=== PATIENT | female | born 1955 | race Caucasian/White ===

== ENCOUNTER 2018-07-21 09:47 | Outpatient (CLI) | payer MEDICARE, MEDICAID, SELFPAY ==
[2018-07-21 14:50] LABS: HCT 45.1 % (36.0-46.0); HGB 14.9 g/dL (12.0-15.5); Mean Corpuscular Hemoglobin 30.9 pg (27.0-33.0); Mean Corpuscular Volume 93.6 fL (80-95); Mean Platelet Volume 9.7 fL (8.0-11.0); Platelet Count 246 x1000/uL (130-400); RBC 4.82 m/cumm (4.00-5.20); RBC Distribution Width 13.9 % (11.7-14.6)
[2018-07-21 15:36] LABS: ALT 49 U/L (12-78); AST 46 U/L (15-37); Albumin 3.4 g/dL (3.4-5.0); Alkaline Phosphatase 106 U/L (46-116); Anion Gap 11.3 mmol/L (3-11); BUN 8 mg/dL (7-18); Bilirubin, Total 0.3 mg/dL (0.2-1.0); CO2 24.7 mmol/L (21.0-32.0); CREATININE 0.97 mg/dL (0.55-1.02); Calcium 9.2 mg/dL (8.5-10.1); Chloride 105 mmol/L (98-107); Estimated GFR 58.38 (mL/min/1.73m2); Glucose 116 mg/dL (70-100); Sodium 141 mmol/L (136-145)
[2018-07-21 17:12] LABS: Vitamin D 25 Total 55.3 ng/ml (30-100)
== END 2018-07-21 10:07 ==
PROVIDERS: PCP Family Medicine; Visit Provider Family Medicine
DX: R53.83 Other fatigue (principal); G62.0 Drug-induced polyneuropathy; R94.5 Abnormal results of liver function studies; T45.1X5A Adverse effect of antineoplastic and immunosuppressive drugs, initial encounter; E55.9 Vitamin D deficiency, unspecified
CPT/HCPCS: 80053; 82306; 85027

== ENCOUNTER 2018-07-21 13:48 | Outpatient (REF) | payer MEDICARE, MEDICAID, SELFPAY ==
--- NOTE | 2018-07-21 13:40 | PAPFT_PTH ---
PATIENT: Marti Daniel LOC: [facility] U#:[id number] AGE/SX: 62/F ROOM: RE07/21/[address]: Waleska Stuart MD : 1955 BED: DIS: 07/21/2018 SPEC #: [id number] RECD: 07/21/18 17:41 STATUS: CASEY REQ #: [id number] ANNA MARIE: 07/21/18 13:[address]: Waleska Stuart DEPT: [facility] Cytology RECD BY: Armida Bradford ENTERED: 07/21/18 17:42 SP TYPE: PAPFT OTHR DR: Betsy Hurtado MD, DC Tissues: 1 - CX/ENDOCX FOR PAP SMEARS Procedures: PAP THIN PREP/UVM Screening HPV DNA PROBE Comments: [id number]
== END 2018-07-21 14:08 ==
LOC: LBN 13:48
PROVIDERS: PCP Family Medicine; Visit Provider Obstetrics & Gynecology
DX: Z12.4 Encounter for screening for malignant neoplasm of cervix (principal); Z11.51 Encounter for screening for human papillomavirus (HPV)
CPT/HCPCS: 88142; 87624

== ENCOUNTER 2018-08-19 01:50 | Outpatient (CLI) | payer MEDICARE, MEDICAID, SELFPAY ==
[2018-08-19 10:34] LABS: Abs Immature Grans 0.01 k/cumm (0.0-0.09); Absolute Basophil Count 0.06 k/cumm (0.0-0.2); Absolute Eosinophil Count 0.23 k/cumm (0.0-0.7); Absolute Lymphocyte Count 2.48 k/cumm (1.2-3.4); Absolute Monocyte Count 0.45 k/cumm (0.11-0.7); Basophils % 0.6; Eosinophils % 2.3; HCT 45.1 % (36.0-46.0); HGB 15.2 g/dL (12.0-15.5); Immature Grans % 0.1; Lymphocytes % 24.7; Mean Corp. HGB Concentration 33.7 g/dL (32.0-36.0); Mean Corpuscular Hemoglobin 31.7 pg (27.0-33.0); Mean Corpuscular Volume 94.2 fL (80-95); Mean Platelet Volume 9.3 fL (8.0-11.0); Monocytes % 4.5; Neutrophils % 67.8; Platelet Count 228 x1000/uL (130-400); RBC 4.79 m/cumm (4.00-5.20); RBC Distribution Width 13.6 % (11.7-14.6); White Blood Cell Count 10.03 k/cumm (4.4-10.8)
[2018-08-19 10:45] LABS: ALT 43 U/L (12-78); AST 42 U/L (15-37); Albumin 3.1 g/dL (3.4-5.0); Alkaline Phosphatase 99 U/L (46-116); Anion Gap 12.3 mmol/L (3-11); BUN 11 mg/dL (7-18); Bilirubin, Total 0.3 mg/dL (0.2-1.0); CO2 23.7 mmol/L (21.0-32.0); CREATININE 1.11 mg/dL (0.55-1.02); Calcium 8.7 mg/dL (8.5-10.1); Chloride 103 mmol/L (98-107); Estimated GFR 49.97 (mL/min/1.73m2); Glucose 212 mg/dL (70-100); Potassium 3.5 mmol/L (3.5-5.1); Sodium 139 mmol/L (136-145); Total Protein 7.3 g/dL (6.4-8.2)
== END 2018-08-19 02:10 ==
PROVIDERS: PCP Family Medicine; Visit Provider Nurse Practitioner Family
DX: C50.919 Malignant neoplasm of unspecified site of unspecified female breast (principal); Z17.0 Estrogen receptor positive status [ER+]
CPT/HCPCS: 36415; 80053; 85025

== ENCOUNTER 2018-10-08 00:42 | Outpatient (CLI) | payer MEDICARE, MEDICAID, SELFPAY ==
--- NOTE | 2018-10-08 14:57 | DI.MAMMO_ITS ---
SYMPTOMS/DIAGNOSIS: H/O BREAST CA, C50.012, Z17.0, F/U S/P TREATMENT, R92.9 MAMMOGRAMS: Mammograms were interpreted according to the usual protocol including computer analysis with CAD system, tomosynthesis and C view imaging. Comparison is with the prior examinations. No suspicious masses or microcalcifications are seen. The patient is status post left lumpectomy and right breast biopsy. The skin and axillae appear stable. IMPRESSION: No evidence for malignancy. Yearly mammography is recommended. Category 2. Breast density B. The findings were discussed with the patient on the date of the examination. MQSA ASSESSMENT OF FINDINGS: Negative with benign findings. Category 2. Patient will receive a letter notifying them of these results. BI-RADS category B. There are scattered areas of fibroglandular density.
== END 2018-10-08 01:02 ==
PROVIDERS: PCP Family Medicine; Visit Provider Nurse Practitioner Family
DX: C50.012 Malignant neoplasm of nipple and areola, left female breast (principal); Z17.0 Estrogen receptor positive status [ER+]; Z98.890 Other specified postprocedural states
CPT/HCPCS: 77063; 77067

== ENCOUNTER 2019-08-13 03:10 | Outpatient (CLI) | payer MEDICARE, MEDICAID, SELFPAY ==
[2019-08-13 11:42] LABS: Abs Immature Grans 0.04 k/cumm (0.0-0.09); Absolute Eosinophil Count 0.28 k/cumm (0.0-0.7); Absolute Lymphocyte Count 2.93 k/cumm (1.2-3.4); Absolute Monocyte Count 1.11 k/cumm (0.11-0.7); Absolute Neutrophil Count 7.65 k/cumm (1.2-6.7); Basophils % 0.8; Eosinophils % 2.3; HCT 47.1 % (36.0-46.0); HGB 15.5 g/dL (12.0-15.5); Immature Grans % 0.3 %; Lymphocytes % 24.2; Mean Corp. HGB Concentration 32.9 g/dL (32.0-36.0); Mean Corpuscular Hemoglobin 30.7 pg (27.0-33.0); Mean Corpuscular Volume 93.3 fL (80-95); Mean Platelet Volume 9.7 fL (8.0-11.0); Monocytes % 9.2; Neutrophils % 63.2; Platelet Count 328 x1000/uL (130-400); RBC 5.05 m/cumm (4.00-5.20); White Blood Cell Count 12.11 k/cumm (4.4-10.8)
[2019-08-13 11:54] LABS: ALT 37 U/L (14-59); AST 28 U/L (15-37); Albumin 3.7 g/dL (3.4-5.0); Alkaline Phosphatase 100 U/L (46-116); Anion Gap 11.9 mmol/L (3-11); BUN 12 mg/dL (7-18); Bilirubin, Total 0.3 mg/dL (0.2-1.0); CO2 26.1 mmol/L (21.0-32.0); CREATININE 0.95 mg/dL (0.55-1.02); Calcium 9.3 mg/dL (8.5-10.1); Chloride 103 mmol/L (98-107); Estimated GFR 59.61 (mL/min/1.73m2); Glucose 132 mg/dL (74-106); Potassium 4.1 mmol/L (3.5-5.1); Sodium 141 mmol/L (136-145); Total Protein 7.1 g/dL (6.4-8.2)
== END 2019-08-13 03:30 ==
PROVIDERS: Nurse Practitioner Family; PCP Family Medicine; Visit Provider Internal Medicine
DX: C50.012 Malignant neoplasm of nipple and areola, left female breast (principal); Z17.0 Estrogen receptor positive status [ER+]
CPT/HCPCS: 36415; 80053; 85025

== ENCOUNTER 2019-10-11 00:18 | Outpatient (CLI) | payer MEDICARE, MEDICAID, SELFPAY ==
--- NOTE | 2019-10-11 | DI.MAMMO_ITS ---
EXAM: MG MAMMO SCREENING 60 MIN DUR CLINICAL HISTORY: PERSONAL H/O BREAST CA, C50, Z17.0, S/P TREATMENT, ANNUAL FOLLOW PU TECHNIQUE: Bilateral full field digital CC and MLO mammographic images were obtained with 3D tomosyn thesis and utilizing computer aided detection (CAD). COMPARISON: Available for comparison. FINDINGS: Masses/Architectural Distortion: None seen. Status post left lumpectomy. Microcalcifications: No suspicious pleomorphic-type are seen. Skin Thickening/Nipple Retraction: Status post left lumpectomy. IMPRESSION: 1. No significant interval change with no specific features of malignancy noted. 2. Unless there is more urgent need, screening mammography is recommended, as per [place] [employer] guidelines. BI-RADS Cat 2 - Benign Findings Breast Density - Category B - Scattered areas of fibroglandular density The findings were discussed with the patient on the date of the examination. A negative radiographic report should not delay biopsy if a dominant or clinically suspicious mass is present. Up to ten percent of cancers are not identified on mammography. A negative report may reinforce clinical impression. Adenosis and dense breasts may obscure an underlying neoplasm. False positive reports average 6 to 10%. Patient will receive a letter notifying them of these results.
== END 2019-10-11 00:38 ==
PROVIDERS: PCP Family Medicine; Visit Provider Nurse Practitioner Family
DX: Z85.3 Personal history of malignant neoplasm of breast (principal); Z17.0 Estrogen receptor positive status [ER+]; Z12.31 Encounter for screening mammogram for malignant neoplasm of breast; Z98.890 Other specified postprocedural states
CPT/HCPCS: 77063; 77067

== ENCOUNTER 2020-10-16 00:42 | Outpatient (CLI) | payer MEDICARE, MEDICAID, SELFPAY ==
--- NOTE | 2020-10-16 07:45 | DI.MAMMO_ITS ---
EXAM: MG MAMMO SCREENING 60 MIN DUR CLINICAL HISTORY: breast cancer screening,personal h/o breast ca,z85.3. TECHNIQUE: Bilateral full field digital CC and MLO mammographic images were obtained with 3D tomosyn thesis and utilizing computer aided detection (CAD). COMPARISON: Prior mammograms dating back to 2010, the most recent being August 2017. This patient facet previous left lumpectomy for malignancy and has undergone biopsy of the right breast, partly ne gative. Her sister was diagnosed with breast cancer, postmenopausal. FINDINGS: Left breast lumpectomy site remains stable. No new left breast findings Area around the biopsy marker clip in the right breast remains unchanged with small nodular density a t this level again noted, previously biopsied. On 3D imaging there is a slightly more laterally loca jannette nodular density also noted in the right breast located 4-5 centimetres in from the nipple measuri ng 10 by 8 millimeters. This is unchanged from prior studies and therefore benign. There are no mal ignant-appearing microcalcification groups in this region or elsewhere in either breast. There is no significant architectural distortion nor skin thickening-retraction. IMPRESSION: Stable benign findings. No radiographic evidence of malignancy. Stable appearance of the left breast lumpectomy site. BI-RADS Category 2 - Benign Findings Breast Density - Category B - Scattered areas of fibroglandular density Breast density Category C or D implies that the patient has dense breast tissue. Dense breast tissue can make it harder to find cancer on a mammogram. Dense breast tissue is also associated with an incr eased risk of breast cancer. This information about the result of the mammogram report was provided to the patient to raise their awareness. Use this report when you speak with the patient about their risks for breast cancer, which includes their family history. At that time, you may recommend additional screening tests (Ultrasoun d or MRI) as these tests may add significant information. A negative radiographic report should not delay biopsy if a dominant or clinically suspicious mass is present. Up to ten percent of cancers are not identified on mammography. A negative report may reinforce clinical impression. Adenosis and dense breasts may obscure an underlying neoplasm. False positive reports average 6 to 10%. Patient will receive a letter notifying them of these results.
== END 2020-10-16 01:02 ==
PROVIDERS: PCP Family Medicine; Visit Provider Family Medicine
DX: Z12.31 Encounter for screening mammogram for malignant neoplasm of breast (principal); Z85.3 Personal history of malignant neoplasm of breast
CPT/HCPCS: 77063; 77067

== ENCOUNTER 2021-05-14 13:15 | Outpatient (REF) | payer MEDICARE, MEDICAID, SELFPAY ==
--- NOTE | 2021-05-14 11:15 | PAPFT_PTH ---
PATIENT: Marti Daniel LOC: [facility] U#:[id number] AGE/SX: 65/F ROOM: RE05/14/[address]: Betsy Hurtado MD, DC : 1955 BED: DIS: 05/14/2021 SPEC #: [id number] RECD: 05/14/21 18:20 STATUS: CASEY REQ #: [id number] ANNA MARIE: 05/14/21 11:[address]: Betsy Hurtado DEPT: [facility] Cytology RECD BY: Armida Bradford Tissues: 1 - CX/ENDOCX FOR PAP SMEARS Procedures: PAP THIN PREP/UVM Screening HPV DNA PROBE Comments: [id number]
== END 2021-05-14 13:16 | disposition home or self-care (01) ==
LOC: LBN 13:15
PROVIDERS: PCP Family Medicine; Visit Provider Family Medicine
DX: Z12.4 Encounter for screening for malignant neoplasm of cervix (principal); Z11.51 Encounter for screening for human papillomavirus (HPV); Z01.419 Encounter for gynecological examination (general) (routine) without abnormal findings
CPT/HCPCS: 88142; 87624

== ENCOUNTER 2021-07-08 03:49 | Observation (INO) | payer MEDICARE, MEDICAID, SELFPAY ==
[2021-07-08] VITALS (9 sets, daily range): BP systolic 95–131; BP diastolic 56–76; PULSE 96–123; RESP 15–18; TEMP 37–38.7; O2SAT 91–95
--- NOTE | 2021-07-08 04:00 | DI.CT_ITS ---
Exam(s) CT NECK W EXAM: CT NECK W CLINICAL HISTORY: throat pain, globus sensation, right neck mass. TECHNIQUE: Imaging Protocol: Axial CT angiography was performed with multi-slice acquisition and mu lti-planar and/or 3D reconstructions. CONTRAST MATERIAL: Intravenous: Omnipaque 350 Contrast volume:100 mL COMPARISON: No exams were available for comparison FINDINGS: Paranasal sinuses/mastoid air cells: Mucosal thickening noted in the left maxillary sinus. No associ ated fluid collection. No bone dehiscence. Remainder of the paranasal sinuses are clear as are the mastoid air cells. No fluid in the middle ear cavities. Visualized orbits: Unremarkable. Nasopharynx: Unremarkable. Oropharynx/hypopharynx: There is swelling in the region of the right tonsil with a 6 x 5 millimeter a bscess at this level. Abnormal soft tissue swelling on the right side of the hypopharynx also noted and suspicious for abscess. Also retropharyngeal swelling noted at this level. Obliteration of the air within the right vallecula noted. Lymph nodes: There are few enlarged lymph nodes right side of the neck. The largest of these measure s 1.7 x 1.4 cm (series 3/image 41). There is no supraclavicular adenopathy. Larynx: Vocal cords unremarkable. Subglottic airway unremarkable. Thyroid gland: Unremarkable. Salivary glands: Both parotid glands appear unremarkable as do the submandibular glands. IMPRESSION: 1. Right-sided tonsillar abscess with what appears to be extension into the right-side of the hypopha rynx. Developing retropharyngeal abscess. ENT consultation recommended. 2. Right-sided reactive adenopathy ENT consultation recommended. Report called by myself to the emergency room provider 07/08/21 5:25 p.m. Apparently this patient was admitted. RADIATION DOSE DELIVERED: 388.28mGy.cm Total DLP DATA REPOSITORY: All CT scans at this facility are submitted to the National Radiology Data Registry (NRDR) Dose Index Registry (DIR) with the [employer] (ACR). RADIATION OPTIMIZATION: All CT scans at this facility use at least one of these dose optimization te chniques: automated exposure control; mA and/or kV adjustment per patient size (includes targeted exa ms where dose is matched to clinical indication); or iterative reconstruction.
--- NOTE | 2021-07-08 04:09 | W.ED.GENAD ---
Discharge Plan Disposition Patient Disposition: [facility] INPATIENT Condition: Improving Discharge Details Clinical Impression: Acute tonsillitis, Acute streptococcal pharyngitis Primary Care Provider: Betsy Hurtado ED Provider: Jamar Thakkar Home Meds and New Rx's Prescriptions: No Action ibuprofen 600 mg tablet 600 mg PO Q6H PRN Qty: 100 RF: 12 Medical Decision Making This is this is a 65-year-old female who presents today for evaluation of throat pain. The patient states that for the last 5 days she has had a mild sore throat which is gradually been worsening. She has difficulty swallowing, drinking, and opening her mouth. She admits to some mild ear pressure. She admits to fever and chills. She denies any chest pain or shortness of breath. She denies any headache. She states that she has had strep throat in the past but this is felt nothing like this. She denies any known dental infections. She denies any dental pain. No other complaints at this time. No other modifying factors. Physical exam demonstrates redness and symmetric bilateral swelling of the tonsils, small amount of tonsillar exudate. Palpation reveals no evidence of peritonsillar abscess that I can appreciate. No swelling or pain in the dental region to suggest periapical abscess. There is some soft tissue swelling in the neck, as well as notable enlargement of lymph node and/or tonsil on palpation of the right lower jaw. Concern is for severe tonsillitis versus Ludewig's angina. Patient is febrile and tachycardic here. Will give Toradol, morphine, rehydrate, evaluate for concerning etiologies, monitor closely and reassess. 5:[address] scan demonstrates thickening and enhancement of the tonsils with a small phlegmon and developing abscess measuring less than 1 cm on the right which corresponds well to be enlarged area noted on exam. Patient does demonstrate an elevated white count, she remains mildly tachycardic but her heart rate is improving. Temperature/fever has improved. Pain has gone from a 10 out of 10 for up to a 9 out of 10. Diagnosis tonsillitis, with developing peritonsillar phlegmon not amendable to drainage currently. Patient's strep screen is positive. Unasyn has already been administered. We will contact ENT software configuration manager for potential further surgical management and/or tonsillectomy. Of note Covid test is negative, and mono test is negative. We do not have any ENT that is software configuration manager here at [facility] or at [place]. Will reach out to [facility]. 6:37 AM Discussed the case with of [facility] ENT. She has reviewed the images. At this time she does not see an abscess that needs draining. Currently there are no beds available but she does not believe that the patient needs emergent surgical management after her reviewed the images and the clinical assessment. She recommends a high single dose of steroids, continuation of the Unasyn, and continued monitoring over the next 24 hours. She states that if the patient improves she could potentially be managed on an outpatient basis, however if she worsens during the observation time then she may need surgical management. On reassessment the patient still does not demonstrate any hot potato voice, or difficulty controlling secretions. She is asking for water, we will give this and perform p.o. trial with ice water. I did contact the hospitalist , he agrees with the assessment and plan. I will place bridging orders on his behalf I have extensively reviewed the treatment plan with the patient. I have addressed all patient concerns at this time. I have also discussed the plan with the admitting physician and they agree with the current assessment and plan and have agreed to assume responsibility for the patient. All parties demonstrate verbal understanding and agreement with our assessment and plan at this time. The documentation in this chart was dictated using [employer] dictation software. Please excuse any dictation errors. FINDINGS: Paranasal sinuses: Mild mucosal thickening of the left maxillary sinus and ethmoid air cells. Nasopharynx: Unremarkable. Oropharynx: Thickening and heterogenous enhancement of the tonsils. Focal 6 mm area of relative hypoenhancement on the right, likely small phlegmon. No drainable fluid collection. Right-sided tonsillolith is noted. Hypopharynx: Unremarkable. Larynx: Unremarkable. Normal epiglottis. Retropharyngeal space: Unremarkable. Submandibular/Parotid glands: Normal. Glands are normal in size. Thyroid: Normal. No enlarged or calcified nodules. Lymph nodes: Adenopathy of the level 2 cervical nodes bilaterally, largest measures 1.5 cm the right and 1.1 cm on the left. Trachea: Visualized trachea is unremarkable. Lungs: Unremarkable as visualized. Bones/joints: Mild degenerative changes of the cervical spine, most notable at C6-C7. No acute osseous abnormality. Vasculature: Atherosclerotic calcifications of the imaged thoracic aorta. Common origin of the innominate and left common carotid arteries. Mild atherosclerosis of the parasellar internal carotid arteries. Soft tissues: No thickening of the retropharyngeal soft tissues. IMPRESSION: Thickening and enhancement of the tonsils with small phlegmon/developing abscess measuring less than 1 cm the right. No drainable fluid collection. Reactive appearing cervical lymphadenopathy. Given patient's age, consider follow-up CT neck with contrast after appropriate treatment and resolution of symptoms to exclude underlying malignancy. Thank you for allowing us to participate in the care of your patient. Dictated and Authenticated by: Anisa Anthony MD 07/08/2021 5:23 AM Eastern Time ([place] & [place] HPI General Date/Time Provider Initiated Documentation: 07/08/21 03:56. HPI Narrative: This is this is a 65-year-old female who presents today for evaluation of throat pain. The patient states that for the last 5 days she has had a mild sore throat which is gradually been worsening. She has difficulty swallowing, drinking, and opening her mouth. She admits to some mild ear pressure. She admits to fever and chills. She denies any chest pain or shortness of breath. She denies any headache. She states that she has had strep throat in the past but this is felt nothing like this. She denies any known dental infections. She denies any dental pain. No other complaints at this time. No other modifying factors. Related Data Home Medications Medication Instructions Recorded Confirmed ibuprofen 600 mg tablet 600 mg PO Q6H PRN #100 tab-cap 07/14/19 07/08/21 Previous Rx's Medication Instructions Recorded ibuprofen 600 mg tablet 600 mg PO Q6H PRN #100 tab-cap 07/14/19 Allergies Allergy/AdvReac Type Severity Reaction Status Date / Time venom-honey bee Allergy Intermediate Large Verified 07/08/21 04:03 local reaction trastuzumab [From Herceptin] Allergy Unknown Verified 07/08/21 04:03 meperidine AdvReac Mild syncope Verified 07/08/21 04:03 meperidine HCl [From Demerol] AdvReac passed out Verified 07/08/21 04:03 HORNETS Allergy Unknown Uncoded 07/08/21 04:03 General Stated Complaint: Sorethroat SHELBIE: 3 Review of Systems All systems reviewed & are unremarkable except as noted in HPI and below PFSH Active Problem List Shoulder pain, left (Acute) Thoracic back pain (Acute) Vitamin D deficiency disease (Chronic 02/08/14) Smoker (Chronic) Posterior tibial tendon dysfunction (PTTD) of left lower extremity (Chronic 02/07/16) Other elevated white blood cell count (Chronic 04/07/12) Fatigue (Chronic 03/31/14) Elevated LFTs (Chronic 07/23/17) 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) Cervical arthritis with myelopathy (Chronic 07/23/17) Medical History Other abnormal Papanicolaou smear of cervix and cervical HPV (02/12/13) certified ltr sent to request another appt for pap Surgical History Breast, Lumpectomy (~2010) Colonoscopy - MAC (06/25/13) Family History Mother Alcohol abuse Depression Heart disease Father , 88 Alcohol abuse Essential hypertension Prostate cancer Sister Breast cancer Brother Hyperlipidemia Heart disease Brother Asthma Depression Brother Alcohol abuse Depression Heart disease Tongue cancer Mouth cancer Maternal Grandfather , 75 Heart disease Paternal Grandfather , 89 Alcohol abuse Prostate cancer Maternal Grandmother , 92 No problems noted. Paternal Grandmother , 90 No problems noted. Son Substance abuse Depression Daughter Substance abuse Alcohol abuse Depression Social History Smoking/Tobacco Use Status: Current every day Tobacco Type: cigarettes Tobacco: How many years used: 49 Quit status: not considering quitting Second Hand Exposure: No Smoking risk assessment performed?: Yes Alcohol Intake: current Alcohol Intake frequency: a few times a week Alcohol type: beer and hard liquor Drug use: Never Substance use type: does not use Counseling given: No Counseling provided: none Caregiver/Support person: No Household members: none Housing: house Communication Needs: None Do you need help understanding health information?: Never Pets and animals: No Sexually active: No Do you think of yourself as: straight/heterosexual Current gender identity: female What is your relationship status?: How often do you talk on the phone with friends or family?: three or more times per week How often do you get together with friends or relatives?: twice per week Do you belong to any clubs or organized social groups?: yes Panel score (0-1 are the most socially isolated patients): 2 What type of physical activity do you participate in: walking Duration: 15-30 minutes/day Frequency: 3-4 times per week Ne/Adventist: No preference Special ne needs: No Seatbelt use: always Helmet use: No Drive intox or ride w/intox school bus driver/mechanic: No Do you feel safe at home: Yes Do you feel safe in your relationship?: Yes Exam Narrative Exam Narrative: 1.Const: Well-nourished, Well-developed, appearing stated age 2.Eyes: PERRL, no conjunctival injection, and symmetrical lids. 3.ENT: Atraumatic external nose and ears. Tympanic membranes are weinstein and pearly bilaterally. No significant effusion. Moist MM. Neck: Symmetric, trachea midline, notably large palpable glands in the right submandibular region. Difficult to differentiate between enlarged tonsil or enlarged lymph node. Posterior oropharynx demonstrates symmetrically enlarged tonsils, mild to moderate redness in the posterior oropharynx, small amount of tonsillar exudate bilaterally. Uvula is midline. Palpation of the posterior oropharynx does not show clear evidence of fluctuant mass. No dental tenderness. No apical swelling to suggest periDental abscess. Mild swelling in the soft tissues of the neck. No stridor with phonation. No hot potato voice. 4.CVS: +S1/S2, No murmurs or gallops. Peripheral pulses 2+ and equal in all extremities. Brisk capillary refill in all extremities. 5.RESP: Unlabored respiratory effort. Clear to auscultation bilaterally. No wheezes rales or rhonchi 6.GI: Soft, Nontender/Nondistended, No hepatosplenomegaly. No guarding or rebound. 7.MSK: Normocephalic/Atraumatic, Extremities w/o deformity or ttp No cyanosis or clubbing, Normal movement of all extremities 8.Skin: Warm, Dry. No rashes or lesions. 9.Neuro: experimental electronics developer II-XII grossly intact. Sensation grossly intact, no focal neurologic deficits. 10.Psych: (AAO) x3. Appropriate mood and affect Course Vital Signs Vital signs: Vital Signs Temperature 38.7 C H 07/08/21 03:58 Pulse 123 H 07/08/21 03:58 Respiratory Rate 18 07/08/21 03:58 Blood Pressure 131/76 07/08/21 03:58 Temperature 38.7 C H 07/08/21 03:58 Temperature Source Oral 07/08/21 03:58 Pulse 123 H 07/08/21 03:58 Respiratory Rate 18 07/08/21 03:58 Respiratory Effort Non-Labored 07/08/21 04:04 Blood Pressure 131/76 07/08/21 03:58 Pain Level 10 07/08/21 03:58 Lab/Test Results Lab/Test Results: 07/08/21 04:04 Blood Blood Culture - Pending 07/08/21 04:04 Blood Blood Culture - Pending
[2021-07-08 04:18] LABS: Source Nasal/Nares
[2021-07-08] MEDS: Normal Saline 1,000 ML 1000 ML IV ×2 (04:26→07:01)
[2021-07-08] MEDS: Ketorolac 30 MG/ML VIAL IVP (04:27)
[2021-07-08 04:29] LABS: Lactate 1.8 mmol/L (0.6-1.4)
[2021-07-08 04:31] LABS: Abs Immature Grans 0.05 10^3/uL (0.0-0.06); Absolute Basophil Count 0.06 10^3/uL (0.0-0.2); Absolute Eosinophil Count 0.09 10^3/uL (0.0-0.7); Absolute Lymphocyte Count 1.12 10^3/uL (1.2-3.4); Absolute Monocyte Count 1.35 10^3/uL (0.1-0.8); Absolute Neutrophil Count 12.65 10^3/uL (1.2-6.7); Basophils % 0.4; Eosinophils % 0.6; HCT 44.6 % (36.0-46.0); HGB 15.1 g/dL (11.2-15.7); Immature Grans % 0.3; Lymphocytes % 7.3; MCH 31.4 pg (27.0-33.0); MCHC 33.9 % (32.0-36.0); MCV 92.7 fL (80-95); MPV 9.4 fL (8.0-11.0); Monocytes % 8.8; Neutrophils % 82.6; Nucleated RBC 0 %; Platelet Count 266 10^3/uL (130-400); RBC 4.81 10^6/uL (3.93-5.22); RDW 13.5 % (11.7-14.6); RDW-SD 45.7 fL; WBC 15.31 10^3/uL (4.4-10.8)
[2021-07-08 04:39] LABS: Mono Screening Negative (Negative)
[2021-07-08 04:44] LABS: ALT 18 U/L (14-59); AST 17 U/L (15-37); Albumin 3.3 g/dL (3.4-5.0); Alkaline Phosphatase 99 U/L (46-116); Anion Gap 11.6 mmol/L (3-11); BUN 8 mg/dL (7-18); Bilirubin, Total 0.6 mg/dL (0.2-1.0); CO2 23.4 mmol/L (21.0-32.0); Calcium 8.6 mg/dL (8.5-10.1); Chloride 100 mmol/L (98-107); Estimated GFR 55.82 (mL/min/1.73m2); Glucose 182 mg/dL (74-106); Potassium 3.9 mmol/L (3.5-5.1); Sodium 135 mmol/L (136-145); Total Protein 7.5 g/dL (6.4-8.2)
[2021-07-08 04:56] LABS: COVID-19 PCR Negative (Negative)
[2021-07-08] MEDS: Omnipaque 350 MG/ML 100 ML BTL IJ (05:09)
[2021-07-08] MEDS: AMPICILLIN/SULBACTAM 3 GM in Normal Saline 100 ML IVPB (05:16)
--- NOTE | 2021-07-08 05:23 | DI.VRAD_ITS ---
PROCEDURE INFORMATION: Exam: CT Neck With Contrast Exam date and time: 07/08/2021 4:10 AM Age: 65 years old Clinical indication: Mass, lump, or swelling in neck and other: Globus sensation; Neck pain; Patient HX: Throat pain globus sensation, right neck mass TECHNIQUE: Imaging protocol: Computed tomography images of the neck with contrast. COMPARISON: MRI - CERVICAL SPINE WO CONT 08/01/2017 12:36 PM FINDINGS: Paranasal sinuses: Mild mucosal thickening of the left maxillary sinus and ethmoid air cells. Nasopharynx: Unremarkable. Oropharynx: Thickening and heterogenous enhancement of the tonsils. Focal 6 mm area of relative hypoenhancement on the right, likely small phlegmon. No drainable fluid collection. Right-sided tonsillolith is noted. Hypopharynx: Unremarkable. Larynx: Unremarkable. Normal epiglottis. Retropharyngeal space: Unremarkable. Submandibular/Parotid glands: Normal. Glands are normal in size. Thyroid: Normal. No enlarged or calcified nodules. Lymph nodes: Adenopathy of the level 2 cervical nodes bilaterally, largest measures 1.5 cm the right and 1.1 cm on the left. Trachea: Visualized trachea is unremarkable. Lungs: Unremarkable as visualized. Bones/joints: Mild degenerative changes of the cervical spine, most notable at C6-C7. No acute osseous abnormality. Vasculature: Atherosclerotic calcifications of the imaged thoracic aorta. Common origin of the innominate and left common carotid arteries. Mild atherosclerosis of the parasellar internal carotid arteries. Soft tissues: No thickening of the retropharyngeal soft tissues. IMPRESSION: Thickening and enhancement of the tonsils with small phlegmon/developing abscess measuring less than 1 cm the right. No drainable fluid collection. Reactive appearing cervical lymphadenopathy. Given patient's age, consider follow-up CT neck with contrast after appropriate treatment and resolution of symptoms to exclude underlying malignancy. Dictated and Authenticated by: Anisa Anthony MD. Ordering:ZHANE Roldan MD
[2021-07-08] MEDS: ACETAMINOPHEN 1,000 MG/100 ML BTL 400 MG IVPB (05:42)
[2021-07-08] MEDS: methylPREDNISolone SUCC 125 MG VIAL IVP (06:45)
--- NOTE | 2021-07-08 07:16 | W.PM.HP.N ---
Date of service: 07/08/21 Time of Service: 07:16 Assessment and Plan Assessment and plan (1) Acute tonsillitis: Status: Acute Assessment and plan: Strep tonsillitis by [id number] testing. She does have swallowing dysfunction and may have very mild dehydration from poor p.o. intake. Plan is to give her IV fluids and monitor her p.o. intake. She is admitted for observation. (2) Acute streptococcal pharyngitis: Status: Acute Assessment and plan: She is on IV Unasyn. She could transition to an oral antibiotic when she is taking p.o. (3) Smoker: Status: Chronic Assessment and plan: She smokes 1-1/2 packs/day. She is contemplating quitting. Will give nicotine replacement. History of Present Illness History of Present Illness Chief Complaint: Exudative tonsillitis Narrative: This is a 65-year-old woman that developed a sore throat about 2 days ago. She had been cleaning her apartment and began to notice some soreness when she swallows and some swelling about her neck. She self referred to the ED last night and was found to have markedly enlarged tonsils with an exudate. A rapid strep screen was positive. She is unable to take adequate p.o. She is admitted for observation and IV fluids. Review of Systems Narrative: As per HPI. She is mainly concerned about such severe sore throat that she is unable to take p.o. adequately. She is worried about dehydration. She has not been able to smoke since late yesterday. She is not having any chest pain or shortness of breath. She is having no GI or problems. No new musculoskeletal problems. 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) Elevated antinuclear antibody (JEAN-PAUL) level (07/23/17) Elevated LFTs (07/23/17) Fatigue (03/31/14) Iatrogenic pulmonary embolism and infarction Malignant neoplasm of female breast s/p lumpectomy, chemo; neuropathy issues hands, feet Other abnormal Papanicolaou smear of cervix and cervical HPV (02/12/13) certified ltr sent to request another appt for pap Other elevated white blood cell count (04/07/12) Posterior tibial tendon dysfunction (PTTD) of left lower extremity (02/07/16) Thoracic back pain Vitamin D deficiency disease (02/08/14) Surgical History Breast, Lumpectomy (~2010) Colonoscopy - MAC (06/25/13) Family History Mother Alcohol abuse Depression Heart disease Father , 88 Alcohol abuse Essential hypertension Prostate cancer Sister Breast cancer Brother Hyperlipidemia Heart disease Brother Asthma Depression Brother Alcohol abuse Depression Heart disease Tongue cancer Mouth cancer Maternal Grandfather , 75 Heart disease Paternal Grandfather , 89 Alcohol abuse Prostate cancer Maternal Grandmother , 92 No problems noted. Paternal Grandmother , 90 No problems noted. Son Substance abuse Depression Daughter Substance abuse Alcohol abuse Depression Social History Smoking/Tobacco Use Status: Current every day Tobacco Type: cigarettes Tobacco: How many years used: 49 Quit status: not considering quitting Second Hand Exposure: No Smoking risk assessment performed?: Yes Alcohol Intake: current Alcohol Intake frequency: a few times a week Alcohol type: beer and hard liquor Drug use: Never Substance use type: does not use Counseling given: No Counseling provided: none Caregiver/Support person: No Household members: none Housing: house Communication Needs: None Do you need help understanding health information?: Never Pets and animals: No Sexually active: No Do you think of yourself as: straight/heterosexual Current gender identity: female What is your relationship status?: How often do you talk on the phone with friends or family?: three or more times per week How often do you get together with friends or relatives?: twice per week Do you belong to any clubs or organized social groups?: yes Panel score (0-1 are the most socially isolated patients): 2 What type of physical activity do you participate in: walking Duration: 15-30 minutes/day Frequency: 3-4 times per week Ne/Caodaism: No preference Special ne needs: No Seatbelt use: always Helmet use: No Drive intox or ride w/intox dray truck driver: No Do you feel safe at home: Yes Do you feel safe in your relationship?: Yes Meds Allergies and Home Medications Allergies Allergy/AdvReac Type Severity Reaction Status Date / Time venom-honey bee Allergy Intermediate Large Verified 07/08/21 04:03 local reaction trastuzumab [From Herceptin] Allergy Unknown Verified 07/08/21 04:03 meperidine AdvReac Mild syncope Verified 07/08/21 04:03 meperidine HCl [From Demerol] AdvReac passed out Verified 07/08/21 04:03 HORNETS Allergy Unknown Uncoded 07/08/21 04:03 Home Medications Medication Instructions Recorded Confirmed Type ibuprofen 600 mg tablet 600 mg PO Q6H PRN #100 tab-cap 07/14/19 07/08/21 Rx Exam Narrative Exam Narrative: On exam she is sitting upright in no apparent distress. Overall looks somewhat sad and slightly uncomfortable. She has no respiratory dysfunction. Her heart sounds are regular. There is no detectable murmur. She has notable swelling of both sides of her neck with fullness along the sternocleidomastoid bilaterally. There are no distinct nodules. For revealed 2+ tonsils with perhaps a fibrinous type exudate but they are not touching. They appear to be symmetrical. Uvula is midline. She has no stridor. The abdominal exam shows moderate obesity. She has no tenderness in all 4 quadrants. The lower extremities she has bounding DP and PT pulses with no evidence of perfusion deficit. Neurologically there are no focal deficits. Results Labs Result diagrams: 07/08/21 04:15 07/08/21 04:15 Labs: Laboratory Results - last 24 hr 07/08/21 07/08/21 07/08/21 04:10 04:15 04:15 WBC RBC Hgb Hct MCV MCH MCHC RDW Plt Count MPV Immature Gran % Neutrophils % Lymphocytes % Monocytes % Eosinophils % Basophils % Nucleated RBC % Absolute Neutrophils Absolute Lymphocytes Absolute Monocytes Absolute Eosinophils Absolute Basophils VBG Lactate 1.8 H Sodium 135 L Potassium 3.9 Chloride 100 Carbon Dioxide 23.4 Anion Gap 11.6 H BUN 8 Creatinine 1.0 Estimated GFR/1.73 m2 55.82 Glucose 182 H Calcium 8.6 Total Bilirubin 0.6 AST 17 ALT 18 Alkaline Phosphatase 99 Total Protein 7.5 Albumin 3.3 L COVID-19 Source Nasal/Nares SARS-CoV-2 (PCR) Negative Monoscreen 07/08/21 07/08/21 04:15 04:15 WBC 15.31 H RBC 4.81 Hgb 15.1 Hct 44.6 MCV 92.7 MCH 31.4 MCHC 33.9 RDW 13.5 Plt Count 266 MPV 9.4 Immature Gran % 0.3 Neutrophils % 82.6 Lymphocytes % 7.3 Monocytes % 8.8 Eosinophils % 0.6 Basophils % 0.4 Nucleated RBC % 0 Absolute Neutrophils 12.65 H Absolute Lymphocytes 1.12 L Absolute Monocytes 1.35 H Absolute Eosinophils 0.09 Absolute Basophils 0.06 VBG Lactate Sodium Potassium Chloride Carbon Dioxide Anion Gap BUN Creatinine Estimated GFR/1.73 m2 Glucose Calcium Total Bilirubin AST ALT Alkaline Phosphatase Total Protein Albumin COVID-19 Source SARS-CoV-2 (PCR) Monoscreen Negative Last Vital Signs Temp 37.1 C 07/08/21 06:41 Pulse 96 H 07/08/21 06:30 Resp 18 07/08/21 03:58 BP 96/65 L 07/08/21 06:30 Pulse Ox 94 07/08/21 06:40 PAWSS Pt Consumed Any Amount of Alcohol Within the Last 30 days OR had positive NAHUM Upon Admission: No
--- NOTE | 2021-07-08 07:54 | NUR.NOTE ---
Nursing Note: Addendum to admission assessment. Swollen glands around the neck, more prominent on the right side. Verbal order from Dr. Block to start IVF of NS at 125
[2021-07-08] MEDS: Ibuprofen 600 MG TAB PO (08:27)
--- NOTE | 2021-07-08 11:28 | DSE_ITS ---
Date of service: 07/08/21 Time of Service: 11:28 DS: Diagnosis Discharge Diagnosis (1) Acute streptococcal pharyngitis: Start date: 07/08/21 Start time: 11:29 Status: Acute Asessment and Plan: Found to be positive for strept in ED. Initiated on unasyn, she is tolerated food and fluid, she can be discharged home will discharge on steroid burst, clindamycin 300 TID x 10, take ibuprofen 600 mg three times a day for three days with food or milk to help with pain and swelling, Eat a yogurt a day x 30 days or take a probiotic. Follow up with PCP in 2 weeks call to make an appt. (2) Acute tonsillitis: Start date: 07/08/21 Start time: 11:33 Status: Acute Asessment and Plan: D/t above. as above Given steroids in the (3) Smoker: Start date: 07/08/21 Start time: 11:40 Status: Chronic Asessment and Plan: Consider smoking cessation discussed with Dr. Castillo Discharge Plan Disposition Patient Disposition: HOME Condition: Improving Discharge Details Reason For Visit: Tonsillitis Admit Date/Time: 07/08/21 06:31 Admit Provider: Rashad Block Attending Provider: Rashad Block Primary Care Provider: Betsy Hurtado Hospital Course Hospital Course: This is a 65-year-old woman developed a sore throat about 2 days ago. She had been cleaning her apartment and began to notice some soreness when she swallows with some swelling about her neck. She self referred to the ED last night and was found to have markedly enlarged tonsils with an exudate. A rapid strep screen was positive. She was unable to take adequate p.o. She was admitted for observation and IV fluids. Today she is doing much better. She is able to eat and drink intaking food and fluids. She is being discharged home. See diagnose for plan. She will need follow up with PCP in 2 weeks she can call her [facility] to arrange appt. She denies CP, SOB, N/V/D Home Meds and New Rx's Prescriptions: New prednisone 20 mg tablet 40 mg PO DAILY Qty: 10 RF: 0 clindamycin HCl 300 mg capsule 300 mg PO TID Qty: 30 RF: 0 Bio-K plus 50 billion cell capsule,delayed release(/EC) 1 cap PO DAILY Qty: 30 RF: 0 Continued ibuprofen 600 mg tablet 600 mg PO Q6H PRN Qty: 100 RF: 12 Discharge Instructions Instructions: Clindamycin (By mouth), Strep Throat (DC), Tonsillitis (DC) Additional Instructions: Follow up PCP in 2 weeks Take antibiotic for 10 days. Take steroids daily x 5 days starting today Take ibuporfen 600 mg Three times a day x 3 days take with food or milk. Take probiotic daily x 30 days to prevent c diff an infection that you can get from antibiotics Stand Alone Forms: Nursing Discharge Form Referrals: Betsy Hurtado MD, [place] [Primary Care Provider] - (Please call PCP tomorrow to schedule a follow up appointment for 2 weeks.) Activity:: Activity as Tolerated Equipment/Supplies:: No Equipment Needed Diet:: As Tolerated Discharge Orders Discharge Orders: Discharge Order (Routine); Ordered 07/08/21 Ordered By: Alice Bell DS: Summary Time Spent with Patient providing and/or coordinating discharge services: Less than 30 minutes Status at Discharge Functional status at discharge: independent ambulation Overall status at discharge: patient is progressing back to baseline Mental Status: mental status grossly normal Speech and Movement: speech and movement normal Mood: congruent mood Affect: normal affect Exam Narrative Exam Narrative: On exam she is sitting upright in no apparent distress. Overall looks somewhat sad and slightly uncomfortable. She has no respiratory dysfunction. Her heart sounds are regular. There is no detectable murmur. She has notable swelling of both sides of her neck with fullness along the sterno cleidomastoid bilaterally. There are no distinct nodules. For revealed 2+ tonsils with perhaps a fibrinous type exudate but they are not touching. They appear to be symmetrical. Uvula is midline. She has no stridor. The abdominal exam shows moderate obesity. She has no tenderness in all 4 quadrants. The lower extremities she has bounding DP and PT pulses with no evidence of perfusion deficit. Neurologically there are no focal deficits. Psych Mental Status: mental status grossly normal Speech and Movement: speech and movement normal Mood: congruent mood Affect: normal affect DS: Data Vitals/I&O Vitals and I&O: Vital Signs Temperature 37 C 07/08/21 07:23 Temperature Source Tympanic 12/05/21 07:21 Pulse 99 H 07/08/21 07:23 Pulse Rhythm Regular 07/08/21 07:23 Respiratory Rate 15 07/08/21 07:23 Respiratory Effort Non-Labored 07/08/21 07:23 Respiratory Depth Normal 07/08/21 07:23 Respiratory Pattern Normal 07/08/21 07:23 Blood Pressure 102/59 L 07/08/21 07:23 Blood Pressure Mean 72 07/08/21 06:30 Pulse Oximetry 95 07/08/21 07:23 Oxygen Delivery Method Room Air 07/08/21 07:23 Oxygen Flow Rate 0 07/08/21 07:23 Pain Level 9 07/08/21 08:27 Intake & Output 07/07/21 07/07/21 07/08/21 11:59 23:59 11:59 Intake Total 1451.667 / 1451.667 Balance 1451.667 / 1451.667 Weight 83.6 kg Intake: IV 1216.667 / 1216.667 Oral 235 / 235 Other: Urine Appearance Clear Data Completed and Pending Completed studies during hospitalization [Text1]: Exam(s) PROCEDURE INFORMATION: Exam: CT Neck With Contrast Exam date and time: 07/08/2021 4:10 AM Age: 65 years old Clinical indication: Mass, lump, or swelling in neck and other: Globus sensation; Neck pain; Patient HX: Throat pain globus sensation, right neck mass TECHNIQUE: Imaging protocol: Computed tomography images of the neck with contrast. COMPARISON: MRI - CERVICAL SPINE WO CONT 08/01/2017 12:36 PM FINDINGS: Paranasal sinuses: Mild mucosal thickening of the left maxillary sinus and ethmoid air cells. Nasopharynx: Unremarkable. Oropharynx: Thickening and heterogenous enhancement of the tonsils. Focal 6 mm area of relative hypoenhancement on the right, likely small phlegmon. No drainable fluid collection. Right-sided tonsillolith is noted. Hypopharynx: Unremarkable. Larynx: Unremarkable. Normal epiglottis. Retropharyngeal space: Unremarkable. Submandibular/Parotid glands: Normal. Glands are normal in size. Thyroid: Normal. No enlarged or calcified nodules. Lymph nodes: Adenopathy of the level 2 cervical nodes bilaterally, largest measures 1.5 cm the right and 1.1 cm on the left. Trachea: Visualized trachea is unremarkable. Lungs: Unremarkable as visualized. Bones/joints: Mild degenerative changes of the cervical spine, most notable at C6-C7. No acute osseous abnormality. Vasculature: Atherosclerotic calcifications of the imaged thoracic aorta. Common origin of the innominate and left common carotid arteries. Mild atherosclerosis of the parasellar internal carotid arteries. Soft tissues: No thickening of the retropharyngeal soft tissues. IMPRESSION: Thickening and enhancement of the tonsils with small phlegmon/developing abscess measuring less than 1 cm the right. No drainable fluid collection. Reactive appearing cervical lymphadenopathy. Labs on day of discharge: Labs from last 24 hours 07/08/21 07/08/21 07/08/21 04:15 04:15 04:15 WBC 15.31 H RBC 4.81 Hgb 15.1 Hct 44.6 MCV 92.7 MCH 31.4 MCHC 33.9 RDW 13.5 Plt Count 266 MPV 9.4 Immature Gran % 0.3 Neutrophils % 82.6 Lymphocytes % 7.3 Monocytes % 8.8 Eosinophils % 0.6 Basophils % 0.4 Nucleated RBC % 0 Absolute Neutrophils 12.65 H Absolute Lymphocytes 1.12 L Absolute Monocytes 1.35 H Absolute Eosinophils 0.09 Absolute Basophils 0.06 VBG Lactate 1.8 H Sodium Potassium Chloride Carbon Dioxide Anion Gap BUN Creatinine Estimated GFR/1.73 m2 Glucose Calcium Total Bilirubin AST ALT Alkaline Phosphatase Total Protein Albumin COVID-19 Source SARS-CoV-2 (PCR) Monoscreen Negative 07/08/21 07/08/21 04:15 04:10 WBC RBC Hgb Hct MCV MCH MCHC RDW Plt Count MPV Immature Gran % Neutrophils % Lymphocytes % Monocytes % Eosinophils % Basophils % Nucleated RBC % Absolute Neutrophils Absolute Lymphocytes Absolute Monocytes Absolute Eosinophils Absolute Basophils VBG Lactate Sodium 135 L Potassium 3.9 Chloride 100 Carbon Dioxide 23.4 Anion Gap 11.6 H BUN 8 Creatinine 1.0 Estimated GFR/1.73 m2 55.82 Glucose 182 H Calcium 8.6 Total Bilirubin 0.6 AST 17 ALT 18 Alkaline Phosphatase 99 Total Protein 7.5 Albumin 3.3 L COVID-19 Source Nasal/Nares SARS-CoV-2 (PCR) Negative Monoscreen 07/08/21 04:25 Blood Blood Culture - Pending 07/08/21 04:15 Blood Blood Culture - Pending Preliminary micro results at discharge 07/08/21 04:25 Blood Culture - Pending Blood 07/08/21 04:15 Blood Culture - Pending Blood [facility] Active Problem List Acute tonsillitis (Acute) Acute streptococcal pharyngitis (Acute) Smoker (Chronic) Medical History Abnormal chest xray (07/11/17) Cervical arthritis with myelopathy (07/23/17) 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) Elevated antinuclear antibody (JEAN-PAUL) level (07/23/17) Elevated LFTs (07/23/17) Fatigue (03/31/14) Iatrogenic pulmonary embolism and infarction Malignant neoplasm of female breast s/p lumpectomy, chemo; neuropathy issues hands, feet Other abnormal Papanicolaou smear of cervix and cervical HPV (02/12/13) certified ltr sent to request another appt for pap Other elevated white blood cell count (04/07/12) Posterior tibial tendon dysfunction (PTTD) of left lower extremity (02/07/16) Thoracic back pain Vitamin D deficiency disease (02/08/14) Surgical History Breast, Lumpectomy (~2010) Colonoscopy - MAC (06/25/13) Family History Mother Alcohol abuse Depression Heart disease Father , 88 Alcohol abuse Essential hypertension Prostate cancer Sister Breast cancer Brother Hyperlipidemia Heart disease Brother Asthma Depression Brother Alcohol abuse Depression Heart disease Tongue cancer Mouth cancer Maternal Grandfather , 75 Heart disease Paternal Grandfather , 89 Alcohol abuse Prostate cancer Maternal Grandmother , 92 No problems noted. Paternal Grandmother , 90 No problems noted. Son Substance abuse Depression Daughter Substance abuse Alcohol abuse Depression Social History Smoking/Tobacco Use Status: Current every day Tobacco Type: cigarettes Tobacco: How many years used: 49 Quit status: not considering quitting Second Hand Exposure: No Smoking risk assessment performed?: Yes Alcohol Intake: current Alcohol Intake frequency: a few times a week Alcohol type: beer and hard liquor Drug use: Never Substance use type: does not use Counseling given: No Counseling provided: none Caregiver/Support person: No Household members: none Housing: house Communication Needs: None Do you need help understanding health information?: Never Pets and animals: No Sexually active: No Do you think of yourself as: straight/heterosexual Current gender identity: female What is your relationship status?: How often do you talk on the phone with friends or family?: three or more times per week How often do you get together with friends or relatives?: twice per week Do you belong to any clubs or organized social groups?: yes Panel score (0-1 are the most socially isolated patients): 2 What type of physical activity do you participate in: walking Duration: 15-30 minutes/day Frequency: 3-4 times per week Ne/Confucianism: No preference Special ne needs: No Seatbelt use: always Helmet use: No Drive intox or ride w/intox personal driver: No Do you feel safe at home: Yes Do you feel safe in your relationship?: Yes
[2021-07-08] MEDS: AMPICILLIN/SULBACTAM 1.5 GM in Normal Saline 50 ML IVPB (11:44)
--- NOTE | 2021-07-08 18:46 | NUR.NOTE ---
referral to cm to follow up with ent for possible rp abcess
--- NOTE | 2021-07-08 19:02 | W.ED.FU ---
Dr. Mancuso in-house radiologist called the ED 07/08/21 stating that he found a discrepancy in the CT neck done this morning in the ED and he recommends follow up. CT NECK WITH IV CONTRAST [facility] 07/08/21 9711 IMPRESSION: Thickening and enhancement of the tonsils with small phlegmon/developing abscess measuring less than 1 cm the right. No drainable fluid collection. Reactive appearing cervical lymphadenopathy. Given patient's age, consider follow-up CT neck with contrast after appropriate treatment and resolution of symptoms to exclude underlying malignancy. Dr. Mancuso 07/08/21 8586 IMPRESSION: 1. Right-sided tonsillar abscess with what appears to be extension into the right-side of the hypopharynx. Developing retropharyngeal abscess. ENT consultation recommended. 2. Right-sided reactive adenopathy. Review of records note that patient was admitted this morning and discharged from the floor this afternoon after tolerating p.o. Case discussed with hospitalist Dr. Castillo who confirms that patient had been improving prior to discharge to home but will ensure pt has ENT follow-up for reevaluation. Patient also placed on care management list to confirm she has ENT follow-up in the next 1 to 2 days.
--- NOTE | 2021-07-09 09:59 | PDOC.ERCMACT ---
- If Service Date Differs Date of service: 07/09/21 Time of Service: 09:59 Care Management Activity Note Marti is seen in the ED for tonsillitis and streptococcal pharyngitis. At the request of ED provider, CM coordinates an urgent referral to ENT. CM will continue to follow.
== END 2021-07-08 13:21 | disposition home or self-care (01) ==
LOC: ER 06:41 → MS 06:58
PROVIDERS: Admitting Provider Family Medicine; Emergency Provider Student in an Organized Health Care Education/Training Program; PCP Family Medicine; Visit Provider Family Medicine
DX: J02.0 Streptococcal pharyngitis (principal); E55.9 Vitamin D deficiency, unspecified; F17.210 Nicotine dependence, cigarettes, uncomplicated; G62.0 Drug-induced polyneuropathy; T45.1X5A Adverse effect of antineoplastic and immunosuppressive drugs, initial encounter; E86.0 Dehydration; B95.5 Unspecified streptococcus as the cause of diseases classified elsewhere
CPT/HCPCS: 70491; 80053; 87040; 87635; 87880; 96361; 96365; 96375; 96376; 99285; 83605; 85025; 86308; 99217; 99219; G0378; J0131; J0295; J1885; J2930; J3490

== ENCOUNTER 2021-09-20 00:45 | Outpatient (CLI) | payer MEDICARE, MEDICAID, SELFPAY ==
--- NOTE | 2021-09-20 08:00 | DI.CTLCSR_ITS ---
Exam(s) CT CHEST LUNG CANCER SCREEN EXAM: CT CHEST LUNG CANCER SCREEN CLINICAL HISTORY: Screening for lung cancer,smoker, f17.210 TECHNIQUE: Imaging Protocol: Axial computed tomography images with coronal and sagittal reformatted images were created and reviewed COMPARISON: CT CHEST WITH CONTRAST from 07/22/2017 FINDINGS: Tracheobronchial tree: Patent where visualized. Pulmonary parenchyma: No consolidation or dominant measurable mass. There is scarring in the lung api bong. Lung Nodules: There are stable pulmonary nodules present. The largest measures 3 mm. It is located in the right lower lobe. Mediastinum and Muriel: No dominant adenopathy or fluid collection. The esophagus is unremarkable.Calci fied lymph nodes are seen in the mediastinum and calcifications are seen in the spleen consistent wit h prior granulomatous disease. Thyroid gland: Unremarkable. Lymph nodes: No axillary adenopathy. Pleura: No effusion or pneumothorax. Heart: The heart is not dilated. Coronary artery calcifications are present. No pericardial effusion . Aorta: Thoracic aorta non-dilated.Atherosclerosis. Upper abdomen: Calcified granuloma in the spleen. Soft Tissues: Unremarkable. Bones: Within normal limits. Old right rib deformities. Right convex scoliosis. IMPRESSION: Pulmonary nodules less than 4 mm are noted. Lung RADS Cat 2 - Benign Appearance / Behavior: Nodules with a very low likelihood of becoming a clin ically active cancer due to size or lack of growth Lung-RADS 1.0 CATEGORIES: Category 0 - Prior chest CT exam(s) being located for comparison. Category 1 - Annual screening in 12 months. No nodules or definitely benign nodules. Category 2 - Annual screening in 12 months. Benign appearance. Nodules with low likelihood of becomin g active cancer. Category 3 - 6-month follow-up. Probably benign. Short-term follow-up suggested. Nodules with low lik elihood of becoming active cancer. Category 4A - 3-month follow-up and CT/PET if >8 mm in size. Suspicious finding. Findings which requi re additional testing. Category 4B - Findings which require additional testing and tissue sampling. Suspicious finding. Category 4X - Category 3 or 4 nodules with additional features or imaging findings that increases the suspicion of malignancy. Modifier S- Potentially clinically significant finding. (Non lung cancer) RADIATION DOSE DELIVERED: 119.2mGy.cm Total DLP !Error CTDIvol 119.2mGy.cm Total DLP !Error CTDIvol DATA REPOSITORY: All CT scans at this facility are submitted to the National Radiology Data Registry (NRDR) Dose Index Registry (DIR) with the [employer] (A[employer]). RADIATION OPTIMIZATION: All CT scans at this facility use at least one of these dose optimization te chniques: automated exposure control; mA and/or kV adjustment per patient size (includes targeted exa ms where dose is matched to clinical indication); or iterative reconstruction.
== END 2021-09-20 01:05 ==
PROVIDERS: PCP Family Medicine; Visit Provider Family Medicine
DX: F17.210 Nicotine dependence, cigarettes, uncomplicated (principal); Z12.2 Encounter for screening for malignant neoplasm of respiratory organs; R91.8 Other nonspecific abnormal finding of lung field
CPT/HCPCS: 71271

== ENCOUNTER 2021-11-05 00:50 | Outpatient (CLI) | payer MEDICARE, MEDICAID, SELFPAY ==
--- NOTE | 2021-11-05 07:30 | DI.MAMMO_ITS ---
Exam(s) MG MAMMO SCREENING 60 MIN DUR EXAM: MG MAMMO SCREENING 60 MIN DUR CLINICAL HISTORY: breast cancer screening,personal h/o breast ca,z85.3. TECHNIQUE: Bilateral full field digital CC and MLO mammographic images were obtained with 3D tomosyn thesis and utilizing computer aided detection (CAD). COMPARISON: Prior mammograms were reviewed, the most recent being OCTOBER 2020. This 65-year-old patient undergone prior left lumpectomy for malignancy and prior biopsy of the oppos ite-right breast which was negative for malignancy. Her sister was also diagnosed with postmenopausa l breast cancer.. FINDINGS: Left breast lumpectomy site remains stable. No new left breast findings. In the right breast asymmetric densities remain unchanged from prior studies. There are no new spiculated masses nor malignant appearing microcalcification groups. No new significant architectural distortion. IMPRESSION: 1. Stable appearance of the left breast lumpectomy site. No radiographic evidence of malignancy in l eft breast. 2. Stable benign-appearing right breast findings. BI-RADS Category 2 - Benign Findings Breast Density - Category B - Scattered areas of fibroglandular density Breast density Category C or D implies that the patient has dense breast tissue. Dense breast tissue can make it harder to find cancer on a mammogram. Dense breast tissue is also associated with an incr eased risk of breast cancer. This information about the result of the mammogram report was provided to the patient to raise their awareness. Use this report when you speak with the patient about their risks for breast cancer, which includes their family history. At that time, you may recommend additional screening tests (Ultrasoun d or MRI) as these tests may add significant information. A negative radiographic report should not delay biopsy if a dominant or clinically suspicious mass is present. Up to ten percent of cancers are not identified on mammography. A negative report may reinforce clinical impression. Adenosis and dense breasts may obscure an underlying neoplasm. False positive reports average 6 to 10%. Patient will receive a letter notifying them of these results.
== END 2021-11-05 01:10 ==
PROVIDERS: PCP Family Medicine; Visit Provider Family Medicine
DX: Z85.3 Personal history of malignant neoplasm of breast (principal); Z12.31 Encounter for screening mammogram for malignant neoplasm of breast
CPT/HCPCS: 77063; 77067

== ENCOUNTER 2022-09-26 00:43 | Outpatient (CLI) | payer MEDICARE, MEDICAID, SELFPAY ==
--- NOTE | 2022-09-26 07:30 | DI.CTLCSR_ITS ---
Exam(s) CT CHEST LUNG CANCER SCREEN EXAM: CT CHEST LUNG CANCER SCREEN CLINICAL HISTORY: Screening for lung cancer,CURRENT SMOKER, F17.210 TECHNIQUE: Imaging Protocol: Axial computed tomography images with coronal and sagittal reformatted images were created and reviewed COMPARISON: CT CT CHEST LUNG CANCER SCREEN from 09/20/2021 FINDINGS: Tracheobronchial tree: Patent where visualized. Pulmonary parenchyma: No consolidation or dominant measurable mass. Small subpleural cysts are seen i n the lungs. Lung Nodules: There is again seen at 3.8 mm nodule in the right lower lobe. The 4 mm subpleural nodu le in the right lower lobe is also stable. There is a stable 3 mm nodule in the lateral aspect of th e left lower lobe. There is a stable 3 mm nodule adjacent to the inferior aspect of the left major f issure. The 2 mm nodule in the left lower lobe is also stable. No new pulmonary nodules are present . Mediastinum and Muriel: No dominant adenopathy or fluid collection. The esophagus is unremarkable.Calci fied lymph nodes are seen in the right hilum. Thyroid gland: Unremarkable. Lymph nodes: Unremarkable. Pleura: No effusion or pneumothorax. Heart: The heart is not dilated. Coronary artery calcification is present. No pericardial effusion. Aorta: Thoracic aorta non-dilated.Atherosclerosis is present. Upper abdomen: There calcifications in the spleen consistent with prior granulomatous disease. Soft Tissues: Unremarkable. Bones: Within normal limits. There is a right convex thoracic scoliosis. IMPRESSION: Stable pulmonary nodules. Lung RADS Cat 2 - Benign Appearance / Behavior: Nodules with a very low likelihood of becoming a clin ically active cancer due to size or lack of growth Lung-RADS 1.0 CATEGORIES: Category 0 - Prior chest CT exam(s) being located for comparison. Category 1 - Annual screening in 12 months. No nodules or definitely benign nodules. Category 2 - Annual screening in 12 months. Benign appearance. Nodules with low likelihood of becomin g active cancer. Category 3 - 6-month follow-up. Probably benign. Short-term follow-up suggested. Nodules with low lik elihood of becoming active cancer. Category 4A - 3-month follow-up and CT/PET if >8 mm in size. Suspicious finding. Findings which requi re additional testing. Category 4B - Findings which require additional testing and tissue sampling. Suspicious finding. Category 4X - Category 3 or 4 nodules with additional features or imaging findings that increases the suspicion of malignancy. Modifier S- Potentially clinically significant finding. (Non lung cancer) RADIATION DOSE DELIVERED: 77.11mGy.cm Total DLP 77.11mGy.cmTotal DLP DATA REPOSITORY: All CT scans at this facility are submitted to the National Radiology Data Registry (NRDR) Dose Index Registry (DIR) with the [employer] (ACR). RADIATION OPTIMIZATION: All CT scans at this facility use at least one of these dose optimization te chniques: automated exposure control; mA and/or kV adjustment per patient size (includes targeted exa ms where dose is matched to clinical indication); or iterative reconstruction.
== END 2022-09-26 01:03 ==
LOC: DI 00:43
PROVIDERS: PCP Family Medicine; Visit Provider Family Medicine
DX: Z12.2 Encounter for screening for malignant neoplasm of respiratory organs (principal); F17.210 Nicotine dependence, cigarettes, uncomplicated; R91.8 Other nonspecific abnormal finding of lung field; J98.4 Other disorders of lung
CPT/HCPCS: 71271

== ENCOUNTER 2022-11-11 00:30 | Outpatient (CLI) | payer MEDICARE, MEDICAID, SELFPAY ==
--- NOTE | 2022-11-11 07:30 | DI.MAMMO_ITS ---
Exam(s) MG MAMMO SCREENING 60 MIN DUR EXAM: MG MAMMO SCREENING 60 MIN DUR CLINICAL HISTORY: breast cancer screening,personal h/o breast ca,z85.3 TECHNIQUE: Bilateral full field digital CC and MLO mammographic images were obtained with 3D tomosyn thesis and utilizing computer aided detection (CAD). COMPARISON: Available for comparison. FINDINGS: Masses/Architectural Distortion: There again seen findings of a prior lumpectomy in the left breast a nd a biopsy in the right breast with a biopsy clip seen in the upper outer quadrant of the right m[address] st. No suspicious nodules or areas of architectural distortion are seen. Microcalcifications: No suspicious pleomorphic-type are seen. Skin Thickening/Nipple Retraction: None. IMPRESSION: 1. No significant interval change with no specific features of malignancy noted. 2. Unless there is more urgent need, screening mammography is recommended, as per [employer] guidelines. 3. Findings were discussed with the patient on the date of the examination. BI-RADS Category 2 - Benign Findings Breast Density - Category B - Scattered areas of fibroglandular density Breast density category C or D implies that the patient has dense breast tissue. Dense breast tissue is very common and is not abnormal but dense breast tissue can make it harder to find cancer on a ma mmogram. Also, dense breast tissue may increase their breast cancer risk. This information about the result of the mammogram report was provided to the patient to raise their awareness. Use this report when you speak with the patient about their risks for breast cancer, which includes their family hist ory. At that time, you may recommend for more screening tests (Ultrasound or MRI) as they might be us eful based on their risk. A negative radiographic report should not delay biopsy if a dominant or clinically suspicious mass is present. Up to ten percent of cancers are not identified on mammography. A negative report may reinforce clinical impression. Adenosis and dense breasts may obscure an underlying neoplasm. False positive reports average 6 to 10%. Patient will receive a letter notifying them of these results.
== END 2022-11-11 00:50 ==
LOC: DI 00:30
PROVIDERS: PCP Family Medicine; Visit Provider Family Medicine
DX: Z85.3 Personal history of malignant neoplasm of breast (principal); Z12.31 Encounter for screening mammogram for malignant neoplasm of breast
CPT/HCPCS: 77063; 77067

== ENCOUNTER 2023-03-11 12:58 | Outpatient (CLI) | payer MEDICARE, MEDICAID, SELFPAY ==
[2023-03-11 12:45] LABS: Abs Immature Grans 0.04 10^3/uL (0.0-0.06); Absolute Basophil Count 0.12 10^3/uL (0.0-0.2); Absolute Eosinophil Count 0.28 10^3/uL (0.0-0.7); Absolute Lymphocyte Count 3.39 10^3/uL (1.2-3.4); Absolute Monocyte Count 0.93 10^3/uL (0.1-0.8); Absolute Neutrophil Count 6.06 10^3/uL (1.2-6.7); Basophils % 1.1; Eosinophils % 2.6; HCT 41.2 % (36.0-46.0); HGB 13.1 g/dL (11.2-15.7); Immature Grans % 0.4; Lymphocytes % 31.3; MCH 27.9 pg (27.0-33.0); MCHC 31.8 % (32.0-36.0); MCV 88 fL (80-95); MPV 8.9 fL (8.0-11.0); Monocytes % 8.6; Platelet Count 390 10^3/uL (130-400); RBC 4.69 10^6/uL (3.93-5.22); RDW-SD 44.6 fL; WBC 10.82 10^3/uL (4.4-10.8)
[2023-03-11 13:57] LABS: ALT 24 U/L (14-59); AST 19 U/L (15-37); Albumin 3.3 g/dL (3.4-5.0); Alkaline Phosphatase 90 U/L (46-116); Amylase 59 U/L (25-115); Anion Gap 7.5 mmol/L (3-11); BUN 7 mg/dL (7-18); Bilirubin, Total 0.3 mg/dL (0.2-1.0); CO2 27.5 mmol/L (21.0-32.0); Calcium 9.2 mg/dL (8.5-10.1); Chloride 104 mmol/L (98-107); Estimated GFR 62.13 (mL/min/1.73m2); Glucose 155 mg/dL (74-106); Lipase 64 U/L (16-77); Potassium 3.9 mmol/L (3.5-5.1); Sodium 139 mmol/L (136-145); Total Protein 7.5 g/dL (6.4-8.2)
== END 2023-03-11 12:59 | disposition home or self-care (01) ==
LOC: LBO 12:58
PROVIDERS: PCP Family Medicine; Visit Provider Nurse Practitioner Family
DX: R10.11 Right upper quadrant pain (principal); F17.200 Nicotine dependence, unspecified, uncomplicated
CPT/HCPCS: 36415; 80053; 83690; 82150; 85025

== ENCOUNTER → 2023-03-14 00:49 | Outpatient (CLI) | payer MEDICARE, MEDICAID, SELFPAY ==
--- NOTE | 2023-03-14 08:15 | DI.US_ITS ---
Exam(s) US ABDOMEN LIMITED EXAM: US ABDOMEN LIMITED CLINICAL HISTORY: RUQ ABD PAIN, R10.11 TECHNIQUE: Ultrasound abdomen performed using standard protocol. COMPARISON: CT ABD PELVIS WITH CONTRAST from 02/19/[address] CHEST LUNG CANCER SCREEN from 09/26/2022 FINDINGS: LIVER: Enlarged at 20 cm in length. Increased echogenicity consistent with moderate to severe hepati c steatosis. No focal liver lesions are visible. GALLBLADDER: No evidence of cholelithiasis. No evidence of wall thickening. No pericholecystic fluid identified. ESPAÑA'S SIGN: Negative. BILIARY SYSTEM: No intrahepatic or extrahepatic biliary ductal dilation. Right KIDNEY: No hydronephrosis stone or mass. PANCREAS: Normal where visualized. ASCITES: None seen. IMPRESSION: Enlarged liver. Moderate hepatic steatosis. DATA REPOSITORY:
== END ==
PROVIDERS: PCP Family Medicine; Visit Provider Nurse Practitioner Family
DX: K76.0 Fatty (change of) liver, not elsewhere classified (principal); R16.0 Hepatomegaly, not elsewhere classified
CPT/HCPCS: 76705

== ENCOUNTER → 2023-04-01 01:02 | Outpatient (CLI) | payer MEDICARE, MEDICAID, SELFPAY ==
--- NOTE | 2023-04-01 08:30 | DI.CT_ITS ---
Exam(s) CT ABDOMEN PELVIS W EXAM: CT ABDOMEN PELVIS W CLINICAL HISTORY: abd pain, RUQ ABD PAIN, R10.11 TECHNIQUE: Imaging Protocol: Axial computed tomography images with coronal and sagittal reformatted images were created and reviewed CONTRAST MATERIAL: Intravenous: Omnipaque 350 Contrast volume:100 mL Oral: Yes COMPARISON: CT ABD PELVIS WITH CONTRAST from 02/19/2016 FINDINGS: ABDOMEN: Lung Bases: There is a 0.7 cm irregular density in the left lingula. It is seen on the uppermost janey ges of the examination. Liver: Normal density. No measurable mass. Portal, Superior Mesenteric, and Splenic Veins: Unremarkable. Gallbladder and Biliary Tract: No radiodense calculus or dilation. Pancreas: Normal density, no abnormal calcifications or inflammatory process. Spleen: Splenic calcified granuloma are present. Adrenals: No masses seen. Kidneys: Normal size, contour and axis. Left nephrolithiasis. No hydronephrosis. No masses seen. Abdominal Aorta: Abdominal portion non-dilated. Atherosclerosis. Bowel: There is a thick-walled soft tissue mass in the distal transverse colon measuring 5.3 cm in le ngth. The mass contacts the inner surface of the anterior abdominal wall suggesting infiltration. T here is mild dilatation of the proximal colon. Colonic neoplasm is suspected. There is no evidence of appendicitis. Peritoneal Cavity: No ascites, collection or mesenteric inflammatory response. No free air. Lymph Nodes: Within normal limits. Bones: Within normal limits for the patient's age. The lucency in the posterior aspect of the right iliac bone is unchanged dating back to 02/19/2016. No aggressive osseous lesions are seen. Soft Tissues: Unremarkable. PELVIS: Bladder: Symmetric distention, no gross wall thickening. Reproductive Organs: Unremarkable as visualized. Lymph Nodes: Within normal limits. Bones: Within normal limits for the patient's age. IMPRESSION: 1. 5.3 cm mass in the distal transverse colon suspicious for colonic neoplasm. There may be involvem ent of the anterior abdominal wall. There is resultant mild dilatation of the proximal colon. 2. 0.7 cm irregular density in the left lingula. Given the findings in the abdomen a metastatic focu s cannot be excluded. A CT scan of the chest should be obtained for further evaluation. 3. Findings were discussed with Kelton Cantu at 2:59 p.m. on 04/01/2023. RADIATION DOSE DELIVERED: 1,198.38mGy.cm Total DLP DATA REPOSITORY: All CT scans at this facility are submitted to the National Radiology Data Registry (NRDR) Dose Index Registry (DIR) with the [employer] (ACR). RADIATION OPTIMIZATION: All CT scans at this facility use at least one of these dose optimization te chniques: automated exposure control; mA and/or kV adjustment per patient size (includes targeted exa ms where dose is matched to clinical indication); or iterative reconstruction.
[2023-04-01] MEDS: Omnipaque 350 MG/ML 100 ML BTL IJ (13:58)
[2023-04-01] MEDS: Normal Saline - Diluent 50 ML VIAL IJ (13:59)
== END ==
PROVIDERS: PCP Family Medicine; Visit Provider Nurse Practitioner Family
DX: R10.11 Right upper quadrant pain (principal); R93.3 Abnormal findings on diagnostic imaging of other parts of digestive tract
CPT/HCPCS: 74177; J3490

== ENCOUNTER → 2023-04-02 08:07 | Outpatient (BNVA) | payer MEDICARE, MEDICAID, SELFPAY | PROVIDERS: PCP Family Medicine; Referring Provider Nurse Practitioner Family; Visit Provider Surgery | DX: K63.89 Other specified diseases of intestine (principal); F17.210 Nicotine dependence, cigarettes, uncomplicated; Z85.3 Personal history of malignant neoplasm of breast | CPT/HCPCS: 99213 ==

== ENCOUNTER 2023-04-10 08:20 | Day surgery (SDC) | payer MEDICARE, MEDICAID, SELFPAY ==
--- NOTE | 2023-04-09 21:38 | W.PM.DSUDISC ---
Date of service: 04/10/23 Time of Service: 10:38 Discharge Plan Disposition Patient Disposition: Home Condition: Good Discharge Details Reason For Visit: Colonoscopy Attending Provider: Brian Zavala Primary Care Provider: Betsy Hurtado Home Meds and New Rx's Prescriptions: Continued ibuprofen 600 mg tablet 600 mg PO Q6H PRN Qty: 100 12RF cholecalciferol (vitamin D3) 25 mcg (1,000 unit) capsule 25 mcg PO DAILY Discontinued polyethylene glycol 3350 17 gram/dose powder 238 g PO ONCE Qty: 238 0RF Rx Instructions: take per colonoscopy instructions bisacodyl [Dulcolax (bisacodyl)] 5 mg tablet,delayed release (DR/EC) 5 mg PO ONCE Qty: 4 0RF Rx Instructions: take per colonoscopy instructions Discharge Instructions Additional Instructions: Emma, I was able to get the colonoscope up to the abnormality that was seen on your CAT scan. It does have features that worry me for colon cancer. I took several biopsies of the mass. I was not able to get the camera passed it. Incidentally, I did find a few other polyps in your rectum. I removed these. All of the tissue that I sampled today will be sent to the pathologist, and they will send me a report in the next week or so. As soon as I have those results I will call you, and we can make plans for the next steps. 1. If tolerated, consume a soft, low fiber diet for 1-2 days. 2[address] Do not drive, drink alcohol, operate machinery, make critical decisions, or do activities that require coordination or balance for 24 hours. 3. Because air was put into your colon during the procedure, expelling air from your rectum (passing gas or farting) is normal. 4. You may not have a bowel movement for 1-3 days because of the colonoscopy prep. This is normal. 5. Go directly to the emergency room if you notice any of the following: Develop chills (warm to touch), or if you have a thermometer and your temperature is above 101 Difficulty breathing or difficultly swallowing Persistent vomiting Severe abdominal pain, other than gas cramps Severe chest pain Black, tarry stools Any bleeding ? exceeding one tablespoon 6. Call your physician if the site where your intravenous was started becomes red, swollen, painful, and warm to touch. 7. Your physician has reviewed your pre-procedure medications. Please continue to take those medications as previously ordered. You will be given specific information/education regarding any changes to your medications before leaving. Activity:: Activity as Tolerated Diet:: As Tolerated Discharge Orders Discharge Orders: Discharge Order (Routine); Ordered 04/09/23 Ordered By: Brian Zavala DS: Diagnosis Discharge Diagnosis (1) Colonic mass: Status: Acute Asessment and Plan: Follow-up on pathology results
--- NOTE | 2023-04-09 21:42 | W.COLOREPORT ---
Date of service: 04/10/23 Time of Service: 10:41 Colonoscopy Report Date of procedure: 04/10/23 Pre-op diagnosis general: Colon mass Post-op diagnosis procedure note: other (Rectal polyps, colon mass at 65 cm from the anus) Procedure: Colonoscopy with polypectomy, biopsies, and intramural tattooing Surgeon: Brian Zavala Anesthesia Type: General:No Airway Estimated blood loss (mL): 15 Pathology: other (Rectal polyps x3, colon mass at 65 cm from the anus) Complications: None Disposition: same day Indications: Jamir is a 67-year-old woman who has been experiencing abdominal pain and unintentional weight loss. She underwent a CAT scan of the abdomen and pelvis that raise concern for a suspicious colon mass. Prep: Miralax/Dulcolax Procedure Start Time: 09:57 Procedure End Time: 10:16 Retraction Time: 11 Findings: Rectal polyps x3, colon mass at 65 cm from the anus (within the descending colon) Procedure Description: After the induction of monitored anesthetic care, and with the patient in left lateral decubitus position, I began by performing an external anorectal exam.? Perineum and skin were normal, as was the anal verge.? There was no evidence of external hemorrhoids.? Next, I performed a digital rectal exam.? I did not appreciate any abnormal findings.? Next, I advanced a colonoscope into the rectal vault.? I performed retroflexion.? This appeared normal.? Using insufflation, I then advanced the colonoscope beyond the rectal folds. Within the rectal vault were 3 rectal polyps. Each was less than 0.5 cm. All were sessile. I removed these all with cold forceps. There was minimal bleeding. I then advanced the colonoscope up through the descending colon. Approximately 65 cm from the anal verge was a near circumferential erythematous and slightly ulcerated mass. Clinical features seem consistent with colon cancer. Although the central lumen was preserved, I was not able to navigate the pediatric colonoscope through the true lumen into the more proximal colon. I perform multiple cold forcep biopsies of the lesion, as well as intramural tattooing. There was minimal bleeding from the biopsy sites. At that point, having obtained the tissue for diagnosis, I felt the safest thing to do is truncate the procedure. Therefore, I began withdrawing the colonoscope, again taking careful attention to examine the surrounding colonic mucosa.Finally, the scope was withdrawn and the patient was brought to the same-day surgery recovery unit as the anesthetic wore off. ?The findings and instructions were shared with the patient prior to discharge.
[2023-04-10] VITALS (8 sets, daily range): BP systolic 88–131; BP diastolic 57–107; PULSE 90–100; RESP 13–25; TEMP 36–36.9; O2SAT 97–99; BMI 30.8
--- NOTE | 2023-04-10 09:07 | ANES.PREOP_ITS ---
General Info Date of Service Date Performed: 04/10/23 Height: 5 ft 5 in Weight: 84 kg Body Mass Index (BMI): 30.8 Surgical Procedure: Operation Date: 04/10/23 09:50 Proposed Procedure Side Surgeon dian Zavala MD Meds Allergies and Home Medications Allergies Allergy/AdvReac Type Severity Reaction Status Date / Time Penicillins Allergy Intermediate Hives Verified 04/10/23 08:35 venom-honey bee Allergy Intermediate Large Verified 04/10/23 08:35 local reaction trastuzumab [From Herceptin] Allergy Unknown Verified 04/10/23 08:35 meperidine AdvReac Mild syncope Verified 04/10/23 08:35 meperidine HCl [From Demerol] AdvReac passed out Verified 04/10/23 08:35 HORNETS Allergy Unknown Swelling/Ed Uncoded 04/10/23 08:35 dyana Home Medication Medication Instructions Recorded ibuprofen 600 mg tablet 600 mg PO Q6H PRN #100 tab-caps 07/10/21 cholecalciferol (vitamin D3) 25 25 mcg PO DAILY 05/30/22 mcg (1,000 unit) capsule Current Visit Medications: Current Medications Generic Name Dose Route Start Last Admin Trade Name Freq PRN Reason Stop Dose Admin Hyoscyamine Sulfate 0.125 mg 04/09/23 21:45 Hyoscyamine 0.125 Mg Sl/Oral/Chew SL 05/09/23 21:44 DIRECTED PRN Ringer's Solution 1,000 mls @ 80 mls/hr 04/10/23 06:00 IV 05/09/23 23:59 [facility]ION [facility] IV Miscellaneous Supplies 1 each 04/10/23 06:00 Iv Access IV 05/09/23 23:59 DIRECTED DARON Ondansetron HCl 4 mg 04/09/23 21:45 Ondansetron 4 Mg/2 Ml Vial IVP 05/09/23 21:44 Q4H PRN PRN Nausea / Vomiting Sodium Chloride 0 ml 04/10/23 06:00 Normal Saline Flush 10 Ml Syr IV 05/09/23 23:59 PRN PRN Sodium Chloride 0 ml 04/10/23 06:00 Normal Saline 10 Ml Vial IJ 05/09/23 23:59 DIRECTED PRN Sterile Water 0 ml 04/10/23 06:00 Water,Injection,Sterile 10 Ml Vial IJ 10/06/23 23:59 DIRECTED PRN PFSH Active Problems Active Problems: Problem Status Onset Code Smoker F17.200 Decreased vision H54.7 Medicare welcome exam Z00.00 Nicotine dependence F17.200 Thoracic spine dysfunction M53.84 Colonic mass K63.89 Medical History Medical History Abnormal chest xray (07/11/17) Acute streptococcal pharyngitis Acute tonsillitis Cervical arthritis with myelopathy (07/23/17) 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 denies Malignant neoplasm of female breast s/p lumpectomy, chemo; neuropathy issues hands, feet Other abnormal Papanicolaou smear of cervix and cervical HPV (02/12/13) certified ltr sent to request another appt for pap Other elevated white blood cell count (04/07/12) Peritonsillar cellulitis Posterior tibial tendon dysfunction (PTTD) of left lower extremity (02/07/16) Thoracic back pain Vitamin D deficiency disease (02/08/14) Surgical History Surgical History Breast, Lumpectomy (~2010) Colonoscopy - MAC (06/25/13) History of surgery on arm Right arm, 1994 Tobacco Smoking/Tobacco Use Status: Current every day Tobacco Type: cigarettes Passive smoking exposure: No Second hand exposure: No Alcohol Alcohol Intake: current Alcohol intake frequency: a few times a month Alcohol type: beer Substance Use Substance use: Never Substance use type: does not use Counseling provided: none Vital Signs and Lab Results Vital Signs Most Recent Vital Signs in EMR: Most Recent Vital Signs Temp Pulse Resp BP Pulse Ox 36 C L 100 H 18 118/80 98 04/10/23 08:24 04/10/23 08:24 04/10/23 08:24 04/10/23 08:24 04/10/23 08:24 Lab Results Blood Type / Crossmatch: No Data to Display Complete Blood Count: White Blood Count 10.82 10^3/uL (4.4-10.8) H 03/11/23 12:35 Red Blood Count 4.69 10^6/uL (3.93-5.22) 03/11/23 12:35 Hemoglobin 13.1 g/dL (11.2-15.7) 03/11/23 12:35 Hematocrit 41.2 % (36.0-46.0) 03/11/23 12:35 Platelet Count 390 10^3/uL (130-400) 03/11/23 12:35 Complete Metabolic Panel: Sodium 139 mmol/L (136-145) 03/11/23 12:35 Potassium 3.9 mmol/L (3.5-5.1) 03/11/23 12:35 Chloride 104 mmol/L (98-107) 03/11/23 12:35 Carbon Dioxide 27.5 mmol/L (21.0-32.0) 03/11/23 12:35 BUN 7 mg/dL (7-18) 03/11/23 12:35 Creatinine 1.0 mg/dL (0.55-1.02) 03/11/23 12:35 Est GFR (CKD-EPI 2020) 62.13 (mL/min/1.73m2) 03/11/23 12:35 Calcium 9.2 mg/dL (8.5-10.1) 03/11/23 12:35 Albumin 3.3 g/dL (3.4-5.0) L 03/11/23 12:35 Glucose 155 mg/dL (74-106) H 03/11/23 12:35 Liver Function Panel: Alanine Aminotransferase (ALT/SGPT) 24 U/L (14-59) 03/11/23 12: 35 Aspartate Amino Transf (AST/SGOT) 19 U/L (15-37) 03/11/23 12:35 Coagulation Panel: No Data to Display Cardiac Panel: No Data to Display Arterial Blood Gas: No Data to Display Venous Blood Gas: No Data to Display Pancreas Panel: Amylase Level 59 U/L (25-115) 03/11/23 12:35 Lipase 64 U/L (16-77) 03/11/23 12:35 Thyroid Panel: No Data to Display Infectious Disease: No Data to Display Blood Cultures: No Data to Display Toxicology Panel: No Data to Display Imaging and Studies Imaging and Studies Study information below may be from another EMR and interpreted by another provider. Please see original notes in EMR for more complete details. Stress Test Summary: 06/18: no echo evidence for stress induced ischemia. Echocardiogram Summary: 2013: lvef 60%, trace TR. Anesthesia Assessment and Plan Anesthesia History Personal History: No History of Anesthesia Complications Family History: No Family History of Anesthesia Complications Exercise Tolerance Exercise Tolerance: Metabolic Equivalents>4 Cardiac & Pulmonary Exam Cardiac Exam: Normal S1/S2 Heart Sounds Pulmonary Exam: Clear Bilateral Breath Sounds Implantable Cardiac Device Does patient have a Pacemaker or an ICD?: No Airway Exam Known Difficult Airway: No Mallampati Class: 4 Mouth Opening: Normal (> 3cm) Thyromental Distance: Less than 3 cm Neck Range of Motion: Limited ROM Neck Circumference: Thick Teeth Condition: Normal Dentition ASA Classification ASA Score: ASA 2 Emergency Case?: No NPO Status NPO Status: NPO Clears >2 hours, Solids >8 hours Anesthesia Plan Resuscitation Status: Full Code Anesthesia Technique: General Anesthesia Airway Planned: Natural Airway Monitors Used: Standard Monitors Preoperative Comments:: 67 yo female for colo. Sig PMHx: breast CA, cervical myelopathy, PE (states that she was getting injections for a potential PE, but was taken off of them when they decided that it was not), smoker, occ EtOH.
[2023-04-10] MEDS: Lactated Ringers 1,000 ML 80 ML IV (09:15)
--- NOTE | 2023-04-10 10:01 | BOWEL_PTH ---
PATIENT: Marti Daniel LOC: [facility] U#:[id number] AGE/SX: 67/F ROOM: RE04/10/[address]: Brian Zavala MD : [id number] BED: DIS: 04/10/2023 SPEC #: [id number] RECD: 04/10/23 12:05 STATUS: [facility] #: [id number] ANNA MARIE: 04/10/23 10:[address]: Brian Zavala DEPT: Surgical Specimen RECD BY: Sharonda Reveles ENTERED: 04/10/23 12:06 SP TYPE: Bowel OTHR DR: Betsy Hurtado MD, DC Tissues: 1 - BIOPSY BOWEL 2 - BIOPSY BOWEL 3 - BIOPSY BOWEL Procedures: GROSS AND MICRO LEVEL 4 IMMUNOPEROXIDASE STAIN Comments: [id number]
[2023-04-10] MEDS: Endoscopic Tattoo 5 ML SYR IJ (10:12)
[2023-04-10] MEDS: Albuterol/Ipratropium 3 ML UPD VIAL (10:24)
--- NOTE | 2023-04-10 12:00 | W.ANESPOSTOP ---
Postoperative Evaluation Date, Time and Location Date Performed: 04/10/23 Time Performed: 11:30 Patient Location: Day Surgery Unit Vital Signs Most Recent Imported Vital Signs: Most Recent Vital Signs Temp Pulse Resp BP Pulse Ox 36.3 C L 90 18 126/107 H 98 04/10/23 11:08 04/10/23 11:08 04/10/23 11:08 04/10/23 11:08 04/10/23 11:08 Pain Score Most Recent Pain Score: Most Recent Pain Score Pain Level 0 04/10/23 11:08 Assessment Mental Status: Awake (Alert & Oriented to Patient Baseline) Airway and Respiratory Function: Patent airway with normal (patient baseline) respiratory exam (Provided education about wheezing, smoking history, and risk of bronchospasm) Cardiovascular Function: Hemodynamically Stable Hydration Status: Adequately Hydrated Nausea & Vomiting: No Nausea or Vomiting Pain: Pt. Denies Any Pain Peripheral Nerve Block: Patient did not receive a nerve block
[2023-04-10 19:51] LABS: CEA 2.9 ng/mL (See Note)
== END 2023-04-10 08:21 | disposition home or self-care (01) ==
PROVIDERS: PCP Family Medicine; Visit Provider Surgery
PROC: 0DJD8ZZ Inspection of Lower Intestinal Tract, Via Natural or Artificial Opening Endoscopic (ICD-10-PCS; CPT 45378; principal; 2023-04-10 09:45)
DX: C18.9 Malignant neoplasm of colon, unspecified (principal); K62.1 Rectal polyp; Z85.3 Personal history of malignant neoplasm of breast; Z53.09 Procedure and treatment not carried out because of other contraindication
CPT/HCPCS: 45331; 45335; 36415; 88305; 82378; 88361; J3010; J7620

== ENCOUNTER 2023-05-02 08:05 | Inpatient (IN) | payer MEDICARE, MEDICAID, SELFPAY ==
--- NOTE | 2023-05-01 21:12 | W.PM.HP.N ---
Date of service: 05/02/23 Time of Service: 11:20 Assessment and Plan Assessment and plan (1) Colonic mass: Status: Acute Assessment and plan: We reviewed the plan for left hemicolectomy today. We will start laparoscopically, and hope to mobilize and complete the resection in that fashion. I think she has a good understanding of the nature of the procedure, and the fact that we may need to open based on adhesions to the anterior abdominal wall. We reviewed the risks of the operation, and again, I think she comprehends at all appropriately. History of Present Illness History of Present Illness Chief Complaint: Colon cancer Narrative: Jamir is 67 years old, and she has been experiencing focal abdominal pain for several weeks. She underwent a CT scan of the abdomen and pelvis that demonstrated an abnormality in the left colon, with some associated mesenteric stranding, and perhaps involvement of the left abdominal sidewall. This was followed up with a colonoscopy that demonstrated colonic adenocarcinoma. She is here for left-sided hemicolectomy She has a personal history significant for breast cancer. She has never had any abdominal surgeries. 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 denies Malignant neoplasm of female breast s/p lumpectomy, chemo; neuropathy issues hands, feet Other abnormal Papanicolaou smear of cervix and cervical HPV (02/12/13) certified ltr sent to request another appt for pap Other elevated white blood cell count (04/07/12) Peritonsillar cellulitis Posterior tibial tendon dysfunction (PTTD) of left lower extremity (02/07/16) Thoracic back pain Vitamin D deficiency disease (02/08/14) Surgical History Breast, Lumpectomy (~2010) Colonoscopy - MAC (04/2023) 06/25/13 History of surgery on arm Right arm, 1994 Family History Mother Alcohol abuse Depression Heart disease Father , 88 Alcohol abuse Essential hypertension Prostate cancer Sister Breast cancer Brother Hyperlipidemia Heart disease Brother Asthma Depression Brother Alcohol abuse Depression Heart disease Tongue cancer Mouth cancer Maternal Grandfather , 75 Heart disease Paternal Grandfather , 89 Alcohol abuse Prostate cancer Maternal Grandmother , 92 No problems noted. Paternal Grandmother , 90 No problems noted. Son Substance abuse Depression Daughter Substance abuse Alcohol abuse Depression Social History Smoking/Tobacco Use Status: Current every day Tobacco Type: cigarettes Tobacco: How many years used: 50 Quit status: not considering quitting Second Hand Exposure: No Smoking risk assessment performed?: Yes Alcohol Intake: current Alcohol Intake frequency: a few times a month Alcohol type: beer Drug use: Never Substance use type: does not use Counseling given: No Counseling provided: none Caregiver/Support person: No Household members: none Housing: house Communication Needs: None Do you need help understanding health information?: Never Pets and animals: No Sexually active: No Do you think of yourself as: straight/heterosexual Current gender identity: female What is your relationship status?: How often do you talk on the phone with friends or family?: three or more times per week How often do you get together with friends or relatives?: once per week How often do you attend christian or jewish services?: decline to answer Do you belong to any clubs or organized social groups?: yes Panel score (0-1 are the most socially isolated patients): 2 What type of physical activity do you participate in: walking Duration: 15-30 minutes/day Frequency: 1-2 times per week Ne/Catholic: No preference Special ne needs: No Seatbelt use: always Helmet use: No 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 Do you feel safe at home: Yes Do you feel safe in your relationship?: Yes Meds Allergies and Home Medications Allergies Allergy/AdvReac Type Severity Reaction Status Date / Time trastuzumab [From Herceptin] Allergy Severe Anaphylaxis Verified 05/02/23 09:28 Penicillins Allergy Intermediate Hives Verified 05/02/23 09:28 venom-honey bee Allergy Intermediate Large Verified 05/02/23 09:28 local reaction meperidine AdvReac Mild syncope Verified 05/02/23 09:28 meperidine HCl [From Demerol] AdvReac passed out Verified 05/02/23 09:28 HORNETS Allergy Unknown Swelling/Ed Uncoded 05/02/23 09:28 dyana Home Medications Medication Instructions Recorded Confirmed Type ibuprofen 600 mg tablet 600 mg PO Q6H PRN #100 tab-caps 07/10/21 05/01/23 Rx cholecalciferol (vitamin D3) 25 25 mcg PO DAILY 05/30/22 05/01/23 History mcg (1,000 unit) capsule bisacodyl 5 mg tablet,delayed 5 mg PO ONCE #8 tabs 04/18/23 05/01/23 Rx release (Dulcolax (bisacodyl)) metronidazole 500 mg tablet 500 mg PO .COMPLEX #8 tabs 04/18/23 05/02/23 Rx neomycin 500 mg tablet 500 mg PO .COMPLEX #8 tabs 04/18/23 05/02/23 Rx ondansetron 8 mg disintegrating 8 mg PO .COMPLEX #3 tabs 04/18/23 05/02/23 Rx tablet polyethylene glycol 3350 17 17 g PO ONCE #238 grams 04/18/23 05/01/23 Rx gram/dose oral powder Exam Const General: cooperative, healthy appearing and comfortable Orientation: awake and oriented x3 Eyes General: appearance normal, both eyes and all related structures Conjunctivae: conjunctivae normal Sclera: sclerae normal Resp Effort & Inspection: normal respiratory effort and able to speak in complete sentences Auscultation: clear to auscultation bilaterally Cardio Jugular venous pressure: no JVD Rate: regular rate Rhythm: regular rhythm GI Inspection: non-distended Palpation: soft, no guarding, no hernias and nontender Auscultation: normal bowel sounds Skin General skin exam: normal turgor Neuro General: patient alert, patient awake and patient oriented x3 Cognition: normal cognition Extrem Right lower extremity: no edema Left lower extremity: no edema Time Spent Time spent with Patient: <40 minutes Time was spent: preparing to see the patient(eg.review tests) and counseling the patient
--- NOTE | 2023-05-01 21:12 | W.PM.OP ---
Date of service: 05/02/23 Time of Service: 17:00 Operative Note Operative Note DATE OF PROCEDURE: 05/02/23 PRE-OP DIAGNOSIS: Colon cancer POST-OP DIAGNOSIS: same PROCEDURE: Open left hemicolectomy SURGEON: Brian Zavala ASSISTING SURGEON: Dora Garcia MANAGER VEHICLE: Margo Farrar ANESTHESIA TYPE: Local By Surgeon and General LMA/ETT Refer to Anesthesia Record ESTIMATED BLOOD LOSS: 100 PATHOLOGY: other (Left colon, 1 suture taylor abdominal wall adhesion, 2 sutures marked proximal) COMPLICATIONS: None Patient was transported to: PACU Patient's condition: stable Indications: Emma is a 67-year-old woman with abdominal pain. She underwent a CAT scan that demonstrated abnormality of the splenic flexure. This was followed with a colonoscopy with biopsy proven adenocarcinoma Procedure Description: After the induction of general endotracheal anesthesia, a King urinary catheter was placed using aseptic technique. Next, the anterior abdominal wall was prepped and draped in the usual fashion. I entered the peritoneal cavity through a Panda approach in the infraumbilical position. The peritoneum was insufflated and a 5 mm 30 degree camera was inserted. There was no evidence of any injury from entry. Next, with the vision of the laparoscope, 5 mm port was placed in the suprapubic position, and another 5 mm port was added to the left hemiabdomen. The patient was then placed in steep Trendelenburg positioning with the right side down. As known from the previous CAT scan, there was an adhesion of the left colon to the anterior abdominal wall. Colonoscopic tattoo was visualized in this area. Visualized portions of the peritoneum were otherwise normal. Liver appeared grossly normal. Transverse colon was then retracted cephalad, and an area of thickening in the greater omentum was noted. It was proximal to the splenic flexure. The omentum was thickened, edematous, and slightly friable. Attempts were made to mobilize the left colon laparoscopically, but given the extent of the adhesion to the anterior abdominal sidewall, as well as the bulky nature of the greater omentum, I did not feel safe to proceed laparoscopically. Therefore, ports were removed, and midline incision was made incorporating the Panda umbilical port site, as well as the suprapubic port site. Next, I began by dividing the greater omentum off of the lesser curvature of the stomach. Dissection was held close to the stomach in an effort to maximize omental retrieval with the specimen in the case that this might be extension of the adenocarcinoma. The lesser sac was entered, and the stomach was retracted cephalad. Next, an area of the transverse colon was identified right at the middle colic artery. The mesentery was divided, and the colon was then divided with a single fire of the BERE stapler next, I began dissecting the transverse mesocolon including the takeoff of the marginal artery from the middle colic. This was suture-ligated. Mesentery dissection was continued towards the splenic flexure with the LigaSure device. Once this was complete, I turned my attention to formal mobilization of the left colon. The descending colon was retracted towards the midline, and the white line of Toldt was incised from the sigmoid colon up and around the splenic flexure. The adhesion to the anterior abdominal sidewall was taken with a healthy portion of the transverse abdominis muscle. Once this mobilization was complete, division of the colon distally was performed using another fire of the BERE stapler. The descending colon was then completely divided with sequential fires of the LigaSure, including suture ligation of the left colic artery. Once this dissection was completed around the splenic flexure, the specimen was passed off the field. 2 sutures were used to riya the proximal margin of the transverse colon, and 1 suture was used at the area of the anterior abdominal adhesion. Next, a bit of the sigmoid colon was mobilized to ensure an target for the anastomosis. The tissue all appeared healthy and well perfused. The midportion of the transverse colon was then allowed to lay down towards the pelvis. Colocolonic anastomosis was performed on the antimesenteric border with another fire of the BERE stapler. The common enterotomy was closed in layers with a running mucosal stitch followed by imbrication with interrupted sutures. Once this was complete, peritoneal cavity was irrigated. The dissection site all appeared hemostatic. Next, using liposomal bupivacaine, I performed open intraoperative TAP blocks on both the right and left side. The anastomosis appeared healthy, and there was no tension across it. The midline was then closed with running PDS suture at the fascial layer, and Vicryl stitches for the subcuticular layers. Skin was closed with a surgical stapler, and the 5 mm port site in the right hemiabdomen was also closed with a surgical stapler. BRIAN dressing was applied, and the patient was allowed awaken from anesthesia and transferred to the recovery unit.
[2023-05-02] VITALS (11 sets, daily range): BP systolic 88–107; BP diastolic 49–71; PULSE 80–95; RESP 16–18; TEMP 36.2–36.6; O2SAT 97–99; BMI 30.2
[2023-05-02 09:18] LABS: Source Nasal/Nares
[2023-05-02] MEDS: Gabapentin 300 MG CAP 600 MG PO (09:31)
[2023-05-02] MEDS: Acetaminophen 500 MG TAB 1000 MG PO (09:31)
[2023-05-02] MEDS: Celecoxib 200 MG CAP PO (09:31)
[2023-05-02] MEDS: Lactated Ringers 1,000 ML 80 ML IV ×3 (09:39→17:25)
[2023-05-02 09:57] LABS: COVID-19 PCR Negative (Negative)
--- NOTE | 2023-05-02 11:38 | W.ANESPRE ---
General Info Date of Service Date Performed: 05/02/23 Height: 5 ft 5 in Weight: 82.5 kg Body Mass Index (BMI): 30.2 Surgical Procedure: Operation Date: 05/02/23 11:50 Proposed Procedure Side Surgeon p Hemicolectomy Laparoscopic Left Brian Zavala MD Actual Procedure Side Surgeon p Hemicolectomy Laparoscopic Left Brian Zavala MD Pre-Op Diagnosis Post-Op Diagnosis Colon Cancer Meds Allergies and Home Medications Allergies Allergy/AdvReac Type Severity Reaction Status Date / Time trastuzumab [From Herceptin] Allergy Severe Anaphylaxis Verified 05/02/23 09:28 Penicillins Allergy Intermediate Hives Verified 05/02/23 09:28 venom-honey bee Allergy Intermediate Large Verified 05/02/23 09:28 local reaction meperidine AdvReac Mild syncope Verified 05/02/23 09:28 meperidine HCl [From Demerol] AdvReac passed out Verified 05/02/23 09:28 HORNETS Allergy Unknown Swelling/Ed Uncoded 05/02/23 09:28 dyana Home Medication Medication Instructions Recorded ibuprofen 600 mg tablet 600 mg PO Q6H PRN #100 tab-caps 07/10/21 cholecalciferol (vitamin D3) 25 25 mcg PO DAILY 05/30/22 mcg (1,000 unit) capsule bisacodyl 5 mg tablet,delayed 5 mg PO ONCE #8 tabs 04/18/23 release (Dulcolax (bisacodyl)) metronidazole 500 mg tablet 500 mg PO .COMPLEX #8 tabs 04/18/23 neomycin 500 mg tablet 500 mg PO .COMPLEX #8 tabs 04/18/23 ondansetron 8 mg disintegrating 8 mg PO .COMPLEX #3 tabs 04/18/23 tablet polyethylene glycol 3350 17 17 g PO ONCE #238 grams 04/18/23 gram/dose oral powder Current Visit Medications: Current Medications Generic Name Dose Route Start Last Admin Trade Name Freq PRN Reason Stop Dose Admin Acetaminophen 1,000 mg 05/02/23 06:00 05/02/23 09:31 Acetaminophen 500 Mg Tab PO 05/02/23 23:59 1,000 mg PREOP DARON Administration Celecoxib 200 mg 05/02/23 06:00 05/02/23 09:31 Celecoxib 200 Mg Cap PO 05/02/23 23:59 200 mg PREOP DARON Administration Gabapentin 600 mg 05/02/23 06:00 05/02/23 09:31 Gabapentin 300 Mg Cap PO 05/02/23 23:59 600 mg PREOP DARON Administration Heparin Sodium (Porcine) 5,000 units 05/02/23 06:00 Heparin 5,000 Units/Ml Vial SC 05/02/23 16:00 [facility] Ringer's Solution 1,000 mls @ 80 mls/hr 05/02/23 06:00 05/02/23 09:39 IV 05/02/23 23:59 80 mls/hr INFUSION DARON Administration Cefazolin Sodium/Dextrose 2 gm in 50 mls @ 100 mls/hr 05/02/23 06:00 Ancef Duplex IVPB 05/02/23 23:59 PREOP DARON IV Miscellaneous Supplies 1 each 05/02/23 06:00 Iv Access IV 05/02/23 23:59 DIRECTED DARON Sodium Chloride 0 ml 05/02/23 06:00 Normal Saline Flush 10 Ml Syr IV 05/02/23 23:59 PRN PRN Sodium Chloride 0 ml 05/02/23 06:00 Normal Saline 10 Ml Vial IJ 05/02/23 23:59 DIRECTED PRN Sterile Water 0 ml 05/02/23 06:00 Water,Injection,Sterile 10 Ml Vial IJ 05/02/23 23:59 DIRECTED PRN PFSH Active Problems Active Problems: Problem Status Onset Code Smoker F17.200 Decreased vision H54.7 Medicare welcome exam Z00.00 Nicotine dependence F17.200 Thoracic spine dysfunction M53.84 Colonic mass K63.89 Medical History Medical History Abnormal chest xray (07/11/17) Acute streptococcal pharyngitis Acute tonsillitis Cervical arthritis with myelopathy (07/23/17) 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 denies Malignant neoplasm of female breast s/p lumpectomy, chemo; neuropathy issues hands, feet Other abnormal Papanicolaou smear of cervix and cervical HPV (02/12/13) certified ltr sent to request another appt for pap Other elevated white blood cell count (09/04/12) Peritonsillar cellulitis Posterior tibial tendon dysfunction (PTTD) of left lower extremity (02/07/16) Thoracic back pain Vitamin D deficiency disease (02/08/14) Surgical History Surgical History Breast, Lumpectomy (~2010) Colonoscopy - MAC (04/2023) 06/25/13 History of surgery on arm Right arm, 1994 Tobacco Smoking/Tobacco Use Status: Current every day Tobacco Type: cigarettes Passive smoking exposure: No Second hand exposure: No Alcohol Alcohol Intake: current Alcohol intake frequency: a few times a month Alcohol type: beer Substance Use Substance use: Never Substance use type: does not use Counseling provided: none Vital Signs and Lab Results Vital Signs Most Recent Vital Signs in EMR: Most Recent Vital Signs Temp Pulse Resp BP Pulse Ox 36.6 C 95 H 17 107/71 97 05/02/23 09:20 05/02/23 09:20 05/02/23 09:20 05/02/23 09:20 05/02/23 09:20 Lab Results Blood Type / Crossmatch: No Data to Display Complete Blood Count: No Data to Display Complete Metabolic Panel: No Data to Display Liver Function Panel: No Data to Display Coagulation Panel: No Data to Display Cardiac Panel: No Data to Display Arterial Blood Gas: No Data to Display Venous Blood Gas: No Data to Display Pancreas Panel: No Data to Display Thyroid Panel: No Data to Display Infectious Disease: Coronavirus (COVID-19)(PCR) Negative (Negative) 05/02/23 09:10 Coronavirus 2019 Source Nasal/Nares 05/02/23 09:10 Blood Cultures: No Data to Display Toxicology Panel: No Data to Display Imaging and Studies Imaging and Studies Study information below may be from another EMR and interpreted by another provider. Please see original notes in EMR for more complete details. Stress Test Summary: 06/18: no echo evidence for stress induced ischemia. Echocardiogram Summary: 2012: lvef 60%, trace TR. Anesthesia Assessment and Plan Anesthesia History Personal History: No History of Anesthesia Complications Family History: No Family History of Anesthesia Complications Exercise Tolerance Exercise Tolerance: Metabolic Equivalents>4 Pertinent Negatives Pertinent Negatives: No Symptoms of GERD Cardiac & Pulmonary Exam Cardiac Exam: Normal S1/S2 Heart Sounds Pulmonary Exam: Clear Bilateral Breath Sounds Implantable Cardiac Device Does patient have a Pacemaker or an ICD?: No Airway Exam Known Difficult Airway: No Mallampati Class: 3 Mouth Opening: Normal (> 3cm) Thyromental Distance: Less than 3 cm Neck Range of Motion: Limited ROM Neck Circumference: Thick Teeth Condition: Normal Dentition ASA Classification ASA Score: ASA 3 Emergency Case?: No NPO Status NPO Status: NPO Clears >2 hours, Solids >8 hours Anesthesia Plan Resuscitation Status: Full Code Anesthesia Technique: General Anesthesia Airway Planned: Endotracheal Tube Monitors Used: Standard Monitors
[2023-05-02] MEDS: ceFAZolin 2 GM/50 ML BAG IVPB (12:40)
--- NOTE | 2023-05-02 14:40 | BOWEL_PTH ---
PATIENT: Fredy,Marti Goldman LOC: [facility]#:[id number] AGE/SX: 67/F ROOM: RE05/02/[address]: Brian Zavala MD : [id number] BED: A DIS: 05/07/2023 SPEC #: [id number] RECD: 05/02/23 18:01 STATUS: CASEY RENav #: [id number] ANNA MARIE: 05/02/23 14:[address]: Brian Zavala DEPT: Surgical Specimen RECD BY: Armida Bradford ENTERED: 05/02/23 18:02 SP TYPE: Bowel OTHR DR: Betsy Hurtado MD, DC Tissues: 1 - BOWEL RESECTION(OTHER) Procedures: GROSS AND MICRO LEVEL 6 Comments: [id number]
[2023-05-02] MEDS: Bupivacaine LIPOSOME/PF 133 MG/10 ML VIAL IJ (15:20)
[2023-05-02] MEDS: Bupivacaine 0.25% Pres-Free 30 ML VIAL (15:20)
[2023-05-02] MEDS: fentaNYL 100 MCG/2 ML VIAL IVP ×2 (16:28→16:35)
--- NOTE | 2023-05-02 16:40 | W.ANESPOSTOP ---
Postoperative Evaluation Date, Time and Location Date Performed: 05/02/23 Time Performed: 16:40 Patient Location: PACU Vital Signs Most Recent Imported Vital Signs: Most Recent Vital Signs Temp Pulse Resp BP Pulse Ox 36.6 C 80 16 101/54 L 99 05/02/23 16:35 05/02/23 16:35 05/02/23 16:35 05/02/23 16:35 05/02/23 16:35 Pain Score Most Recent Pain Score: Most Recent Pain Score Pain Level 6 05/02/23 16:35 Assessment Mental Status: Awake (Alert & Oriented to Patient Baseline) Airway and Respiratory Function: Patent airway with normal (patient baseline) respiratory exam Cardiovascular Function: Hemodynamically Stable Hydration Status: Adequately Hydrated Nausea & Vomiting: No Nausea or Vomiting Pain: Pain is tolerable per patient Peripheral Nerve Block: Patient did not receive a nerve block
[2023-05-02] MEDS: Ketorolac 15 MG/ML VIAL IVP (20:17)
[2023-05-02] MEDS: ACETAMINOPHEN 1,000 MG/100 ML BTL 400 MG IVPB (21:20)
[2023-05-02] MEDS: Lactated Ringers 1,000 ML 75 ML IV (21:21)
[2023-05-03 00:06] VITALS: BP 109/67; PULSE 81; RESP 16; TEMP 36.6; O2SAT 97
[2023-05-03] MEDS: Ketorolac 15 MG/ML VIAL IVP ×3 (02:33→16:32)
[2023-05-03 06:07] LABS: Abs Immature Grans 0.04 10^3/uL (0.0-0.06); Absolute Basophil Count 0.06 10^3/uL (0.0-0.2); Absolute Eosinophil Count 0.01 10^3/uL (0.0-0.7); Absolute Monocyte Count 1.56 10^3/uL (0.1-0.8); Basophils % 0.4; Eosinophils % 0.1; HCT 34.8 % (36.0-46.0); Immature Grans % 0.3; Lymphocytes % 15.9; MCH 27.2 pg (27.0-33.0); MCHC 31.6 % (32.0-36.0); MCV 86 fL (80-95); MPV 9.2 fL (8.0-11.0); Monocytes % 10.7; Neutrophils % 72.6; Platelet Count 342 10^3/uL (130-400); RBC 4.04 10^6/uL (3.93-5.22); RDW 14.4 % (11.7-14.6); RDW-SD 45.7 fL; WBC 14.57 10^3/uL (4.4-10.8)
[2023-05-03] MEDS: ACETAMINOPHEN 1,000 MG/100 ML BTL 400 MG IVPB ×3 (06:08→20:57)
[2023-05-03] MEDS: Lactated Ringers 1,000 ML 75 ML IV (06:14)
[2023-05-03 06:15] LABS: Absolute Lymphocyte Count 2.32 10^3/uL (1.2-3.4); Absolute Neutrophil Count 10.58 10^3/uL (1.2-6.7)
[2023-05-03 06:26] LABS: Anion Gap 10.5 mmol/L (3-11); BUN 8 mg/dL (7-18); CO2 23.5 mmol/L (21.0-32.0); Calcium 8.8 mg/dL (8.5-10.1); Chloride 104 mmol/L (98-107); Estimated GFR 62.13 (mL/min/1.73m2); Glucose 131 mg/dL (74-106); Potassium 4.1 mmol/L (3.5-5.1); Sodium 138 mmol/L (136-145)
[2023-05-03 06:30] LABS: Diff Comment Diff Reviewed; RBC Morphology Normal
[2023-05-03 07:43] VITALS: BP 106/69; PULSE 87; RESP 17; TEMP 36; O2SAT 96
[2023-05-03] MEDS: Enoxaparin 40 MG/0.4 ML SYR SC (08:16)
[2023-05-03] MEDS: Psyllium PKT 1 EACH PO (08:16)
--- NOTE | 2023-05-03 08:57 | INITIAL_ITS ---
Date of service: 05/03/23 Time of Service: 08:57 Care Management Initial Assmt Initial Assessment REASON FOR HOSPITALIZATION:: Colon Cancer PREVIOUS FUNCTIONAL STATUS/SOCIAL/FAMILY SUPPORTS:: Jamir lives in [place] with her partner Vamshi. Her children live locally and are supportive. 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 CURRENT FUNCTIONAL STATUS:: Jamir was lying in bed when CM met with her. She reported that she just ambulated in the [place] and is now very tired. Per pt, she is starting to feel her age, when normally she feels much younger. ADVANCE DIRECTIVES:: [facility] is Domi Webber Has patient been provided with info about the portal/API?: Yes Did the patient sign up for the portal?: No CODE STATUS:: Full Code INSURANCE COVERAGE / FINANCIAL ISSUES:: Medicare PRIMARY CARE PHYSICIAN:: Betsy Hurtado POTENTIAL DISCHARGE NEEDS:: Follow up appointments, discharge plan of care PATIENT/FAMILY EDUCATION NEEDS:: Review discharge instructions, limitations, medications and plan to follow up with community providers. ANTICIPATED BARRIERS TO DISCHARGE:: none identified TRANSPORTATION:: via private vehicle with family PLAN:: Anticipate Jamir will discharge home via private vehicle with family when she is medically ready. She will follow up with community providers and her discharge plan of care as instructed. Further evaluations may be recommended to determine discharge needs. CM will follow. 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 denies Malignant neoplasm of female breast s/p lumpectomy, chemo; neuropathy issues hands, feet Other abnormal Papanicolaou smear of cervix and cervical HPV (02/12/13) certified ltr sent to request another appt for pap Other elevated white blood cell count (04/07/12) Peritonsillar cellulitis Posterior tibial tendon dysfunction (PTTD) of left lower extremity (02/07/16) Thoracic back pain Vitamin D deficiency disease (02/08/14) Surgical History Breast, Lumpectomy (~2010) Colonoscopy - MAC (04/2023) 06/25/13 History of surgery on arm Right arm, 1994 Family History Mother Alcohol abuse Depression Heart disease Father , 88 Alcohol abuse Essential hypertension Prostate cancer Sister Breast cancer Brother Hyperlipidemia Heart disease Brother Asthma Depression Brother Alcohol abuse Depression Heart disease Tongue cancer Mouth cancer Maternal Grandfather , 75 Heart disease Paternal Grandfather , 89 Alcohol abuse Prostate cancer Maternal Grandmother , 92 No problems noted. Paternal Grandmother , 90 No problems noted. Son Substance abuse Depression Daughter Substance abuse Alcohol abuse Depression Social History Smoking/Tobacco Use Status: Current every day Tobacco Type: cigarettes Tobacco: How many years used: 50 Quit status: not considering quitting Second Hand Exposure: No Smoking risk assessment performed?: Yes Alcohol Intake: current Alcohol Intake frequency: a few times a month Alcohol type: beer Drug use: Never Substance use type: does not use Counseling given: No Counseling provided: none Caregiver/Support person: No Household members: none Housing: house Communication Needs: None Do you need help understanding health information?: Never Pets and animals: No Sexually active: No Do you think of yourself as: straight/heterosexual Current gender identity: female What is your relationship status?: How often do you talk on the phone with friends or family?: three or more times per week How often do you get together with friends or relatives?: once per week How often do you attend scientologist or mosque services?: decline to answer Do you belong to any clubs or organized social groups?: yes Panel score (0-1 are the most socially isolated patients): 2 What type of physical activity do you participate in: walking Duration: 15-30 minutes/day Frequency: 1-2 times per week Ne/Druze: No preference Special ne needs: No Seatbelt use: always Helmet use: No 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
--- NOTE | 2023-05-03 10:40 | W.PM.PROGNOT ---
Date of Service Date of service: 05/03/23 Time of Service: 10:40 Assessment and Plan Assessment and plan (1) Colon cancer: Status: Chronic Assessment and plan: Mrs Before is POD#1 s/p left extended colectomy for colon cancer. She is tolerating a soft diet. She has had several BMs Plan: 1. Diet: soft diet, do not advance 2. Activity- needs to be up and walking today 3. DVT prophilaxis- Lovenox and SCD's 4. GI prophilaxis- protonix 40 mg po daily 5. Incision- BRIAN x 7 days. 6. Discharge- to home once stable (2) S/P partial colectomy: Status: Acute (3) Nicotine dependence: Status: Acute Assessment and plan: will offer a patch Subjective Subjective Interval history since last seen: Marti is doing OK. Pain is tolerable with toradol, tylenol and the ocassional Morphine. She has had severeal small stools. + flatus She denies N/V. She has been eating a soft diet. Exam Const General: cooperative, comfortable and no acute distress Nutritional Appearance: overweight Orientation: alert and oriented x3 HENMT Head: normocephalic and atraumatic Resp Effort & Inspection: normal respiratory effort Auscultation: clear to auscultation bilaterally Cardio Rate: regular rate Rhythm: regular rhythm GI Inspection: other (BRIAN dressing with minimal blood.) Palpation: soft, no hepatosplenomegaly and tender (appropriately tender) Auscultation: hypoactive bowel sounds General: other (meneses in place) Objective Last Vital Signs Temp 96.8 F L 05/03/23 07:43 Pulse 87 05/03/23 07:43 Resp 17 05/03/23 07:43 BP 106/69 05/03/23 07:43 Pulse Ox 96 05/03/23 07:43 Laboratory Results - last 24 hr 05/03/23 05/03/23 05:50 05:50 WBC 14.57 H RBC 4.04 Hgb 11.0 L Hct 34.8 L MCV 86 MCH 27.2 MCHC 31.6 L RDW 14.4 Plt Count 342 MPV 9.2 Immature Gran % 0.3 Neutrophils % 72.6 Lymphocytes % 15.9 Monocytes % 10.7 Eosinophils % 0.1 Basophils % 0.4 Nucleated RBC % 0.0 Absolute Neutrophils 10.58 H Absolute Lymphocytes 2.32 Absolute Monocytes 1.56 H Absolute Eosinophils 0.01 Absolute Basophils 0.06 RBC Morphology Normal Sodium 138 Potassium 4.1 Chloride 104 Carbon Dioxide 23.5 Anion Gap 10.5 BUN 8 Creatinine 1.0 Est GFR (CKD-EPI 2020) 62.13 Glucose 131 H Calcium 8.8 Time Spent with Patient Time Spent with Patient: 25-34 minutes Time was spent: preparing to see the patient(eg.review tests), obtaining and/or reviewing separately otained hiistory, indepentently interpreting results and counseling the patient
[2023-05-03] MEDS: Normal Saline Flush 10 ML SYR IVP (16:32)
[2023-05-03 20:58] VITALS: BP 101/66; PULSE 53; RESP 18; TEMP 36.5; O2SAT 96
[2023-05-04] MEDS: Ketorolac 15 MG/ML VIAL IVP ×3 (00:41→14:14)
[2023-05-04] MEDS: MORPHine 2 MG/ML SYR IVP ×6 (03:51→18:04)
[2023-05-04 03:58] VITALS: BP 115/69; PULSE 85; RESP 18; TEMP 37.5; O2SAT 95
[2023-05-04] MEDS: ACETAMINOPHEN 1,000 MG/100 ML BTL 400 MG IVPB ×3 (05:33→21:12)
--- NOTE | 2023-05-04 06:00 | NUR.NOTE ---
Pt had a rough night with uncontrolled pain little to no sleep. Toradol and scheduled Tylenol given when available. Pt offered PRN morphine throughout the night to help get ahead of the pain but she was resistant to taking controlled substances. This was until roughly 0400 when she agreed to take her PRN dose of morphine. She reported it did help her a pain a bit and another dose was given at 0600 when she could have it again. Ice was also offered throughout the night to help with discomfort which the pt also declined. Nursing Note:
[2023-05-04 08:29] VITALS: BP 107/70; PULSE 93; RESP 18; TEMP 37.4; O2SAT 96
[2023-05-04] MEDS: Normal Saline Flush 10 ML SYR IVP ×3 (08:30→18:04)
[2023-05-04] MEDS: Psyllium PKT 1 EACH PO (09:20)
[2023-05-04] MEDS: Enoxaparin 40 MG/0.4 ML SYR SC (09:20)
--- NOTE | 2023-05-04 10:09 | PGE_ITS ---
Date of Service Date of service: 05/04/23 Time of Service: 10:09 Assessment and Plan Assessment and plan (1) Colon cancer: Status: Chronic Assessment and plan: Before is POD#2 s/p left extended colectomy for colon cancer. She has been on a soft diet but has not had any more BM's and is not passing flatus. She has also had increase in her pain and is more distended although her bowel sounds are better then yesterday. Low grade temps this am (99), I suspect that is because of her increased abdominal pain overnight which means she was not using her incentive and not ta abdi deep breaths Plan: 1. Diet: clear liquids until she passes some flatus 2. Activity- needs to be up and walking today 3. DVT prophilaxis- Lovenox and SCD's 4. GI prophilaxis- protonix 40 mg IV daily 5. GI- Dulcolax supository to see if we can get things moving. She is on Entereg 6. Lungs: Incentive spirometer 7. Incision- BRIAN x 7 days. 8. Discharge- to home once stable (2) S/P partial colectomy: Status: Acute Subjective Subjective Interval history since last seen: Marti did not have a good night. She states that her pain was out of control. S he didn't get any Morphine until 6 am this morning. She felt like the nurse was unwilling to give her the medicine. She has only had 3 doses so far since surgery. She is not nauseated. She has not had any flatus. She is burping. NO BM since the one small one yesterday. Had low grade temps early this am. Exam Const General: cooperative, comfortable and no acute distress Nutritional Appearance: overweight Orientation: alert and oriented x3 [facility] Head: normocephalic and atraumatic Resp Effort & Inspection: normal respiratory effort Auscultation: clear to auscultation bilaterally Cardio Rate: regular rate Rhythm: regular rhythm Heart Sounds: no gallops, no murmurs and no rubs GI Inspection: normal to inspection and distended Palpation: soft, no hepatosplenomegaly and tender (appropriately tender to palpation) Auscultation: hypoactive bowel sounds Other: BRIAN dressing intact with minimal bloody discharge. No change from yesterday Abdomen image: 1. Incision 2. BRIAN dressing Objective Last Vital Signs Temp 99.3 F 05/04/23 08:29 Pulse 93 H 05/04/23 08:29 Resp 18 05/04/23 08:29 BP 107/70 05/04/23 08:29 Pulse Ox 96 05/04/23 08:29 Time Spent with Patient Time Spent with Patient: 25-34 minutes Time was spent: preparing to see the patient(eg.review tests), indepentently interpreting results and counseling the patient
[2023-05-04] MEDS: Pantoprazole 40 MG VIAL IVP (11:17)
--- NOTE | 2023-05-04 11:28 | IN_ITS ---
PT Notes Visit Reasons: Colon Cancer Physical Therapy Inpatient Initial Evaluation Date: 05/04/23 Referring Doctor: Dora Garcia MD PT Orders: PT CONSULT: s/p surgery Precautions: Fall. Standard. Activity as tolerated. Patient Profile/Admitting Diagnosis: Jamir is a 67 yo female that underwent open left hemicolectomy surgery on 05/01/23 for colon cancer mass. She was admitted following surgery. Patient is having difficulty with pain management. PMHX: See EMR Social History/Home Situation: Independent at baseline, [address] with rails, lives with significant other. Equipment Owned/DME: Toilet riser. Subjective: Cleared by nursing to see patient and patient is agreeable to PT. Patient is ambulating in [place] at time of consult. Objective: General Observation: Alert Mental Status: A&O x3 Pain: Abdominal pain, recently medicated, did not give rating ROM: Right Upper Extremity: Shoulder Flexion WFL. Shoulder abduction WFL. Elbow flexion WFL. Wrist flexion WFL. Opening and closing of hand WFL. Left Upper Extremity: Shoulder Flexion WFL. Shoulder abduction WFL. Elbow flexion WFL. Wrist flexion WFL. Opening and closing of hand WFL. Right Lower Extremity: Hip flexion WFL. Hip abduction WFL. Knee flexion WFL. Ankle dorsiflexion WFL. Ankle plantarflexion WFL. Left Lower Extremity: Hip flexion WFL. Hip abduction WFL. Knee flexion WFL. Ankle dorsiflexion WFL. Ankle plantarflexion WFL. Strength: Right Upper Extremity: Grossly 5/5 Left Upper Extremity: Grossly 5/5 Right Lower Extremity: Grossly 5/5 Left Lower Extremity: Grossly 5/5 Pain in abdomen and core weakness may limit functional ability Sensation: Intact as to pain and pressure on bilateral lower extremities. Bed Mobility/Transfers: Supine to sit: With HOB elevated, SBA Sit to supine: With HOB elevated, SBA Sit to stand: SBA Stand to sit: SBA Gait: Ambulated 120 ft with FWW, SBA. Had already been walking at least 120 ft prior to walking with her. Stairs: Not assessed Balance: Static Sitting: Good Dynamic Sitting: Fair Static Standing: Good Dynamic Standing: Fair Special Tests: Mobility Limitations Standardized Measure [facility]-PAC 6 clicks Basic Mobility Inpatient Short Form: Raw Score: 15 CMS Score: 58% Informed Consent/Education: Patient instructed in purpose of PT consult and plan of care. Assessment: Jamir is able to perform bed mobility, transfers, and ambulation with s upervision when pain is under control. When pain elevates she has very poor functional ability. If can manage pain at home she will be able to function with assist from significant other as needed. Future PT sessions will focus on bed mobility from flat bed and stair assessment for safe return to home. Patient presents with clinical signs and symptoms consistent with current/admitting diagnoses that have resulted to mobility limitations, gait instability, generalized weakness, and impairment of motor control as demonstrated by the following impairment level findings: 1. Impaired sitting/standing balance 2. Impaired activity tolerance 3. Poor pain management 4. Core weakness Impairments are contributing to the following functional limitations: 1. Increased dependence with transfers and bed mobility 2. Inability to safely ambulate without assistive device 3. Increase completion time for mobility ADL performance 4. Increased fall risk 4. Inability to negotiate steps alone safely Patient is assessed as a Low complexity based on the following: History: 67 year old female with impairment level findings, functional limitations, and past medical history as indicated above Examination: Demonstrable impairment in strength, balance, and mobility level with underlying impairments and functional limitations as documented above Presentation: Evolving Decision Making: Low complexity Goals: Goals x1 week 1. Supine-Sit: independent 2. Sit-Supine: independent 3. Sit-Stand: independent 4. Stand-Sit: independent 5. Bed-Chair: independent 6. Chair-Bed: independent 7. Independent gait on level surface with use of least restrictive device for at least 300 feet without report of pain nor dyspnea 8. Good static and dynamic standing balance/tolerance 9. Independent with home exercise program 10. Independent stair negotiation while holding onto bilateral rails for at least 5 steps without report of pain nor dyspnea Plan of Care/Treatment Plan: 1-2x/day, 7 days/week x1 week. Plan of care has been reviewed with the MANAGER [employer]ESK providing the service under Physical Therapy direction. Initiate Physical Therapy intervention for strengthening, bed mobility, transfers, gait, stairs, balance training, and use of assistive device. Discharge Plan DISCHARGE RECOMMENDATIONS: Home with without services, could benefit from shower chair TREATMENT CODE/TIME: 10:38-10:55 (17 minutes), [id number] Thank you for the opportunity to participate in the care of this patient. Rosetta Mcneal, PT, DPT, OCS [facility], [place]
[2023-05-04 15:22] VITALS: BP 116/71; PULSE 101; RESP 17; TEMP 37.9; O2SAT 96
[2023-05-04 21:27] VITALS: BP 101/64; PULSE 95; RESP 18; TEMP 37.1; O2SAT 97
[2023-05-05] MEDS: Ketorolac 15 MG/ML VIAL IVP ×3 (01:18→15:43)
[2023-05-05] MEDS: MORPHine 2 MG/ML SYR IVP ×6 (04:05→20:12)
[2023-05-05] MEDS: ACETAMINOPHEN 1,000 MG/100 ML BTL 400 MG IVPB (05:12)
[2023-05-05 07:08] LABS: Abs Immature Grans 0.11 10^3/uL (0.0-0.06); Absolute Eosinophil Count 0.28 10^3/uL (0.0-0.7); Absolute Lymphocyte Count 2.22 10^3/uL (1.2-3.4); Basophils % 0.4; Eosinophils % 1.8; HCT 30.4 % (36.0-46.0); HGB 9.6 g/dL (11.2-15.7); Immature Grans % 0.7; Lymphocytes % 14.2; MCH 27.1 pg (27.0-33.0); MCHC 31.6 % (32.0-36.0); MCV 86 fL (80-95); MPV 9.2 fL (8.0-11.0); Monocytes % 8.1; Neutrophils % 74.8; Platelet Count 314 10^3/uL (130-400); RBC 3.54 10^6/uL (3.93-5.22); RDW 14.7 % (11.7-14.6); RDW-SD 46.4 fL; WBC 15.64 10^3/uL (4.4-10.8)
[2023-05-05 07:20] LABS: Absolute Basophil Count 0.06 10^3/uL (0.0-0.2); Absolute Monocyte Count 1.27 10^3/uL (0.1-0.8)
[2023-05-05 07:40] LABS: Anion Gap 8.7 mmol/L (3-11); BUN 8 mg/dL (7-18); CO2 25.3 mmol/L (21.0-32.0); CREATININE 0.8 mg/dL (0.55-1.02); Calcium 8.5 mg/dL (8.5-10.1); Chloride 104 mmol/L (98-107); Estimated GFR 81.21 (mL/min/1.73m2); Glucose 98 mg/dL (74-106); Magnesium 1.5 mg/dL (1.8-2.4); Potassium 3.5 mmol/L (3.5-5.1); Sodium 138 mmol/L (136-145)
[2023-05-05] MEDS: Psyllium PKT 1 EACH PO (08:02)
[2023-05-05] MEDS: Enoxaparin 40 MG/0.4 ML SYR SC (08:02)
[2023-05-05] MEDS: Normal Saline Flush 10 ML SYR IVP (08:03)
[2023-05-05] MEDS: Pantoprazole 40 MG VIAL IVP (08:03)
[2023-05-05 08:20] VITALS: BP 119/77; PULSE 87; RESP 18; TEMP 37.2; O2SAT 96
[2023-05-05] MEDS: Magnesium Oxide 400 MG TAB PO (08:28)
--- NOTE | 2023-05-05 09:01 | CMPROGNOTE_ITS ---
Date of service: 05/05/23 Time of Service: 09:01 Care Management Progress Note Progress Note Text Progress Note Text: S/O: Marti was sitting up in bed when CM met with her. Her s/o Vamshi is sitting in the recliner. Per pt her abdominal pain has been an issue and is much better when she takes her pain meds on a schedule. She also notes that she spoke with the Surgeon this morning and plans to be here for a few more days. CM will follow. A: 67 year old female admitted to [facility] with Colon Cancer and is s/p left extended coloectomy P: Anticipate Jamir will discharge home with New [facility] RN (if needed)once medically cleared by Surgical Provider. She was cleared by PT. She will follow up with community providers and her discharge plan of care as recommended.
--- NOTE | 2023-05-05 09:36 | PCNE_ITS ---
Date of service: 05/05/23 Time of Service: 07:00 History of Present Illness History of Present Illness Chief Complaint: bowel obstruction 2nd to colon cancer Narrative: Emma is a 67-year-old woman who experienced constipation and bowel obstruction. Investigation led to the discovery that she had colon cancer. She is recently hospitalized for partial colectomy. They were able to do a reanastomosis and she did not require a colostomy bag. She is presently in the hospital recovering. She is extremely happy that she did not require a colostomy. She states that she is still very very weak and knows that she cannot care for herself at home. She is not willing to go to a fpc for rehab. She states that she is now ready to stop smoking. I have been her physician for about 15 years and she has always been very resistant to this. Past medical history is significant for breast cancer, peripheral neuropathy, smoking disorder, neck and upper back injury and pain resulting in disability Consults Consult date: 05/05/23 Assessment and Plan Assessment and plan (1) Smoker: Status: Chronic Assessment and plan: I am thrilled that Jamir has finally decided to stop smoking. This will help her health in the future and her recovery in the present. I would recommend that she be started on Chantix starter pack, and given a prescription for nicotine gum or patch at discharge. There are many forms of help in [place] for people that would like to stop smoking. Hopefully care management will hook her up with some of these (2) S/P partial colectomy: Status: Acute Assessment and plan: Per Dr. Zavala in general surgery. (3) Palliative care patient: Status: Acute Assessment and plan: The neck step is figuring out what are the next steps. Unfortunately she has voiced that she will not go through chemotherapy because of the resultant peripheral neuropathy that she presently has from her past cancer treatment. I do think that she needs to rethink this, meet with oncology and determine if this will in fact be a possible side effect of some of the chemo drugs that they might recommend. I will help her with these decisions after we have more information. I will continue to meet with Jamir in palliative care. (4) Chemotherapy-induced peripheral neuropathy: Assessment and plan: This was from her previous cancer. Review of Systems Narrative: At this point she is willing to stop smoking. She feels that her breathing has improved. She does not have any chest pain. She is surprised at how painful her postsurgical course has been. People have been very helpful in trying to get her pain under control but she still feels that it is fairly significant. 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 denies Malignant neoplasm of female breast s/p lumpectomy, chemo; neuropathy issues hands, feet Other abnormal Papanicolaou smear of cervix and cervical HPV (02/12/13) certified ltr sent to request another appt for pap Other elevated white blood cell count (04/07/12) Peritonsillar cellulitis Posterior tibial tendon dysfunction (PTTD) of left lower extremity (02/07/16) Thoracic back pain Vitamin D deficiency disease (02/08/14) Surgical History Breast, Lumpectomy (~2010) Colonoscopy - MAC (04/2023) 06/25/13 History of surgery on arm Right arm, 1994 Family History Mother Alcohol abuse Depression Heart disease Father , 88 Alcohol abuse Essential hypertension Prostate cancer Sister Breast cancer Brother Hyperlipidemia Heart disease Brother Asthma Depression Brother Alcohol abuse Depression Heart disease Tongue cancer Mouth cancer Maternal Grandfather , 75 Heart disease Paternal Grandfather , 89 Alcohol abuse Prostate cancer Maternal Grandmother , 92 No problems noted. Paternal Grandmother , 90 No problems noted. Son Substance abuse Depression Daughter Substance abuse Alcohol abuse Depression Social History Smoking/Tobacco Use Status: Current every day Tobacco Type: cigarettes Tobacco: How many years used: 50 Quit status: not considering quitting Second Hand Exposure: No Smoking risk assessment performed?: Yes Alcohol Intake: current Alcohol Intake frequency: a few times a month Alcohol type: beer Drug use: Never Substance use type: does not use Counseling given: No Counseling provided: none Caregiver/Support person: No Household members: none Housing: house Communication Needs: None Do you need help understanding health information?: Never Pets and animals: No Sexually active: No Do you think of yourself as: straight/heterosexual Current gender identity: female What is your relationship status?: How often do you talk on the phone with friends or family?: three or more times per week How often do you get together with friends or relatives?: once per week How often do you attend methodist or islam services?: decline to answer Do you belong to any clubs or organized social groups?: yes Panel score (0-1 are the most socially isolated patients): 2 What type of physical activity do you participate in: walking Duration: 15-30 minutes/day Frequency: 1-2 times per week Ne/Muslim: No preference Special ne needs: No Seatbelt use: always Helmet use: No 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 She is alert and oriented x3. Her heart rate is around 80. She does have a systolic murmur which is her baseline. Lungs air movement is decreased. No wheezes are heard. Her abdomen is tender but not tense. Her mood?anxious about the future Results Last Vital Signs Temp 99.0 F 05/05/23 08:20 Pulse 87 05/05/23 08:20 Resp 18 05/05/23 08:20 BP 119/77 05/05/23 08:20 Pulse Ox 96 05/05/23 08:20 Labs 05/06/23 06:47 05/05/23 06:15 Labs: Laboratory Results - last 24 hr 05/05/23 05/05/23 06:15 06:15 WBC 15.64 H RBC 3.54 L Hgb 9.6 L Hct 30.4 L MCV 86 MCH 27.1 MCHC 31.6 L RDW 14.7 H Plt Count 314 MPV 9.2 Immature Gran % 0.7 Neutrophils % 74.8 Lymphocytes % 14.2 Monocytes % 8.1 Eosinophils % 1.8 Basophils % 0.4 Nucleated RBC % 0.0 Absolute Neutrophils 11.70 H Absolute Lymphocytes 2.22 Absolute Monocytes 1.27 H Absolute Eosinophils 0.28 Absolute Basophils 0.06 Sodium 138 Potassium 3.5 Chloride 104 Carbon Dioxide 25.3 Anion Gap 8.7 BUN 8 Creatinine 0.8 Est GFR (CKD-EPI 2020) 81.21 Glucose 98 Calcium 8.5 Magnesium 1.5 L
[2023-05-05 09:50] LABS: Lab Add On Test DONE
[2023-05-05 10:31] LABS: C-Reactive Protein > 25.00 mg/dL (0.0-0.3)
--- NOTE | 2023-05-05 13:27 | PT.INTREAT ---
Date of service: 05/05/23 Time of Service: 13:08 PT Notes Visit Reasons: Colon Cancer Inpatient Physical Therapy Treatment Note [facility] Date: 05/05/23 PRECAUTIONS: Fall, standard, activity as tolerated. SUBJECTIVE: Patient reports some pain on left side, tolerable. OBJECTIVE: Patient supine in bed, agreeable to therapy. Significant other present. ? PAIN: Yes, left side. No number assigned. worse with coughing or rolling. VITALS: Monitored by nursing staff. ? Therapeutic Activities ([id number]): Direct one-on-one instruction in dynamic activities to improve functional performance. ? BED MOBILITY/TRANSFERS? Rolling L/R: Independent, even without side rails, however this requires extended time and causes sharp increase in pain. Rolling onto left side unbearably uncomfortable. Supine-sit: independent, even without side rails, but this does cause an increase in pain. Sitting on right side of bed is less painful, but patient typically gets out of bed on left side at home. ? Sit-supine: independent ? Sit-stand: independent ? Stand-sit: independent ? Bed-Chair: independent ? Chair-bed: independent Provided skilled cues and instruction on performance and technique throughout. Educated patient on log roll and using feet as pendulum to propel supine-sit. GAIT? Assistive Device: none? Weight bearing: full Assist: SBA? Distance:? 450 feet? Deviation: reduced stride length, slight antalgic gait pattern favoring left leg appears with fatigue. ? STAIRS: Patient ascends and descends 2 six inch stairs with bilateral rails and reciprocal gait pattern, SBA. ? ASSESSMENT:? Patient tolerates therapy well, returns to lay in bed at end of treatment session. PLAN: Continue global strengthening per plan of care until patient is medically cleared for discharge. TREATMENT CODE/TIME: 14 minutes beginning at 13:08
[2023-05-05] MEDS: Acetaminophen 325 MG TAB 650 MG PO (14:16)
[2023-05-05] MEDS: traMADol 50 MG TAB 100 MG PO (14:16)
--- NOTE | 2023-05-05 16:01 | W.PM.PROGNOT ---
Date of Service Date of service: 05/05/23 Time of Service: 16:01 Assessment and Plan Assessment and plan (1) S/P partial colectomy: Status: Acute Assessment and plan: Generally I think Emma is doing quite well after left hemicolectomy. However, she did have some tachycardia yesterday that is a little worrisome. White blood cell count today is little high as well. I will add a CRP on, we can see how she does over the next 24 hours. If the CRP remains elevated, it may be worth adding some antibiotics, or perhaps a CAT scan to rule out any kind of anastomotic complications. Subjective Subjective Interval history since last seen: Jamir is feeling much better than yesterday. She is tolerating food and had a bowel movement this morning. Exam GI Other: Abdomen is soft and nondistended. Piter dressing is clean and dry. She has good bowel sounds. She has a little bit of tenderness on the left abdomen. Objective Last Vital Signs Temp 99.0 F 05/05/23 08:20 Pulse 87 05/05/23 08:20 Resp 18 05/05/23 08:20 BP 119/77 05/05/23 08:20 Pulse Ox 96 05/05/23 08:20 Laboratory Results - last 24 hr 05/05/23 05/05/23 05/05/23 06:15 06:15 06:25 WBC 15.64 H RBC 3.54 L Hgb 9.6 L Hct 30.4 L MCV 86 MCH 27.1 MCHC 31.6 L RDW 14.7 H Plt Count 314 MPV 9.2 Immature Gran % 0.7 Neutrophils % 74.8 Lymphocytes % 14.2 Monocytes % 8.1 Eosinophils % 1.8 Basophils % 0.4 Nucleated RBC % 0.0 Absolute Neutrophils 11.70 H Absolute Lymphocytes 2.22 Absolute Monocytes 1.27 H Absolute Eosinophils 0.28 Absolute Basophils 0.06 Sodium 138 Potassium 3.5 Chloride 104 Carbon Dioxide 25.3 Anion Gap 8.7 BUN 8 Creatinine 0.8 Est GFR (CKD-EPI 2020) 81.21 Glucose 98 Calcium 8.5 Magnesium 1.5 L C-Reactive Protein Add-On Test Request DONE 05/05/23 06:25 WBC RBC Hgb Hct MCV MCH MCHC RDW Plt Count MPV Immature Gran % Neutrophils % Lymphocytes % Monocytes % Eosinophils % Basophils % Nucleated RBC % Absolute Neutrophils Absolute Lymphocytes Absolute Monocytes Absolute Eosinophils Absolute Basophils Sodium Potassium Chloride Carbon Dioxide Anion Gap BUN Creatinine Est GFR (CKD-EPI 2020) Glucose Calcium Magnesium C-Reactive Protein > 25.00 H Add-On Test Request Time Spent with Patient Time Spent with Patient: 25-34 minutes Time was spent: preparing to see the patient(eg.review tests), ordering medications,tests, procedures, indepentently interpreting results and counseling the patient
[2023-05-05 17:07] VITALS: BP 113/72; PULSE 77; RESP 18; TEMP 36.8; O2SAT 98
[2023-05-06 00:31] VITALS: BP 111/69; PULSE 89; RESP 18; TEMP 37.2; O2SAT 95
[2023-05-06] MEDS: Ketorolac 15 MG/ML VIAL IVP ×3 (00:41→13:05)
[2023-05-06] MEDS: Acetaminophen 325 MG TAB 650 MG PO ×3 (00:42→13:04)
[2023-05-06 07:09] LABS: HCT 29.6 % (36.0-46.0); HGB 9.4 g/dL (11.2-15.7); MCH 27.2 pg (27.0-33.0); MCHC 31.8 % (32.0-36.0); MCV 86 fL (80-95); MPV 9.8 fL (8.0-11.0); Platelet Count 314 10^3/uL (130-400); RBC 3.45 10^6/uL (3.93-5.22); RDW 14.6 % (11.7-14.6); WBC 10.86 10^3/uL (4.4-10.8)
[2023-05-06 07:20] VITALS: BP 109/73; PULSE 73; RESP 18; TEMP 36.6; O2SAT 97
[2023-05-06] MEDS: Pantoprazole 40 MG VIAL IVP (07:59)
[2023-05-06] MEDS: Enoxaparin 40 MG/0.4 ML SYR SC (07:59)
--- NOTE | 2023-05-06 10:46 | PDOC.CMPRO ---
Date of service: 05/06/23 Time of Service: 10:46 Care Management Progress Note Progress Note Text Progress Note Text: S/O: Jamir was sitting up on the edge of her bed when CM met with her. She stated that her pain has been managed well today, which is an improvement, and is helping her to feel better overall. She has been walking in the halls throughout the day. Per report, she was able to have a BM today. reports she is nearing discharge readiness, if she continues to improve, and her pain remains well controlled. CM will continue to follow. A: 67 year old female admitted to [facility] with Colon Cancer and is s/p left extended coloectomy P: Anticipate Jamir will discharge home with New [facility] RN (if needed)once medically cleared by Surgical Provider. She was cleared by PT.? She will follow up with community providers and her discharge plan of care as recommended.?
--- NOTE | 2023-05-06 11:13 | PT.INTREAT ---
Date of service: 05/06/23 Time of Service: 10:41 PT Notes Visit Reasons: Colon Cancer Inpatient Physical Therapy Treatment Note [facility] Date: 05/06/23 PRECAUTIONS: Fall, standard, activity as tolerated SUBJECTIVE: Patient reports feeling better today than yesterday, feels as though her pain is finally well controlled. Reports having slept well last night and how much of a difference that makes for her. Reports having had a bowel movement this morning, which was a concern she had about going home, but also has been an issue for months now. Reports that she is agreeable to walking, although this will be her third walk of the morning so she doesn't want to go far. OBJECTIVE: Patient supine in bed, agreeable to therapy. ? PAIN: Less today, although coughing and rolling still hurt. VITALS: monitored by nursing staff. ? ? BED MOBILITY/TRANSFERS? Rolling L/R: independent Supine-sit: independent ? Sit-supine: independent ? Sit-stand: independent ? Stand-sit: independent ? Bed-Chair: independent ? Chair-bed: independent ? Therapeutic Exercises ([id number]): Direct one-on-one instruction in therapeutic exercises to develop strength, endurance, range of motion and flexibility. ?Ambulation ? Assistive Device: none? Weight bearing: full Assist: SBA ? Distance:? 350 feet ? Deviation: Tiana increased compared to yesterday, step length increased. No antalgic pattern observed. Balance appears good overall, although patient does report feeling dizzy for several seconds - she moves to the wall, closes her eyes, takes several deep breaths, and then reports feeling better. Stairs: Patient ascends and descends 9 four inch stairs and 6 six inch stairs with bilateral railings and SBA. ? Provided skilled instruction in proper exercise performance Provided skilled manual cues to facilitate proper muscle recruitment and/or form. ASSESSMENT:? patient tolerates therapy well, returns to bed at end of treatment session. Reports being nervous about going home, worries that she won't get the support she needs from her S/O. Unable to specify what tasks or activities at home concern her, just generally concerned that her pain will get out of control because much of her pain medicine here has been through the IV. PLAN: Continue global strengthening per plan of care until patient is medically cleared for discharge. Revisit goals with Pia Wallace DPT to see if increasing the difficulty would be appropriate. TREATMENT CODE/TIME: 19 minutes beginning at 10:41
--- NOTE | 2023-05-06 15:14 | W.PM.PROGNOT ---
Date of Service Date of service: 05/06/23 Time of Service: 15:15 Assessment and Plan Assessment and plan (1) S/P partial colectomy: Status: Acute Assessment and plan: POD #5 open left hemicolectomy for colon cancer. -entereg abx- none DVT- lovenox GI: protonix wound: PICOs meneses- no pain control: scheduled: tylenol/celebrex/robaxin. prn ultram hopefully d/c in am (2) Colon cancer: Status: Chronic (3) Smoker: Status: Chronic (4) Nicotine dependence: Status: Acute (5) Iatrogenic pulmonary embolism and infarction: (6) Malignant neoplasm of female breast: Subjective Subjective Interval history since last seen: Pt did move her bowels today. She has been up walking around. She was served salad for lunch and noted she got very distended and gassy after she ate this. She Denies: no headaches. No CP or SOB. no productive cough. no dysuria. no leg pain or swelling. She c/o incisional pain. She notes that the Oxy codon make her nauseous. She is very concerned about going home and pain control. Exam Const Other: PHYSICAL EXAM GENERAL APPEARANCE: Alert, healthy appearance, oriented, x 3,? in no acute distress HYDRATION: Well hydrated HEAD, EYES, EARS, NECK, THROAT: Head is normocephalic, pupils equal, round, reactive to light and accommodation, ocular movement intact, sclera clear and no jaundice. ? No thrush LUNGS: normal respiration/normal chest excursion. ?Clear to auscultation bilaterally. ?No wheeze. ?HEART: Regular rate and rhythm. no murmurs EXTREMITY: No edema or cyanosis.? no leg pain, redness, swelling.? ABDOMEN: soft and non-tender to palpation.? Gauze over the incision. Minimal strikethrough. Good bowel sounds. Minimal distention. Yeah you can add in the max dose on the tramadol Objective Last Vital Signs Temp 36.6 C 05/06/23 07:20 Pulse 73 05/06/23 07:20 Resp 18 05/06/23 07:20 BP 109/73 05/06/23 07:20 Pulse Ox 97 05/06/23 07:20 Laboratory Results - last 24 hr 05/06/23 05/06/23 06:47 06:47 WBC 10.86 H RBC 3.45 L Hgb 9.4 L Hct 29.6 L MCV 86 MCH 27.2 MCHC 31.8 L RDW 14.6 Plt Count 314 MPV 9.8 C-Reactive Protein 23.20 H Time Spent with Patient Time Spent with Patient: 25-34 minutes Time was spent: preparing to see the patient(eg.review tests), obtaining and/or reviewing separately otained hiistory, ordering medications,tests, procedures, referring, communicating with other health acute care physical therapist, indepentently interpreting results, counseling the patient and care coordination
[2023-05-06] MEDS: MORPHine 2 MG/ML SYR IVP ×2 (15:30→18:50)
[2023-05-06 15:40] VITALS: BP 128/81; PULSE 88; RESP 19; TEMP 36.7; O2SAT 99
--- NOTE | 2023-05-06 16:14 | PT.INTREAT ---
PT Notes Visit Reasons: Colon Cancer Date: 05/06/23 ?PRECAUTIONS: Fall, standard, activity as tolerated ?SUBJECTIVE: Pt approached for therapy around 1:30pm, pt requested to be seen later at around 3:30pm due to excruciating abdominal pain. pt able to partiicipate with therapy at around 3:50pm after pt received morphine. ? OBJECTIVE: ?PAIN: Excruciating pain/ managed after taking pain meds ?VITALS: monitored by nursing staff.?BED MOBILITY/TRANSFERS?Rolling L/R: independent ?Supine-sit: independent ?Sit-supine: independent ?Sit-stand: independent ?Stand-sit: independent ?Bed-Chair: independent ?Chair-bed: independent ?Therapeutic Exercises [id number]: Direct one-on-one instruction in therapeutic exercises to develop strength, endurance, range of motion and flexibility. ?Ambulation ?Assistive Device: none?Weight bearing: full ?Assist: SBA ?Distance:? 500 feet ?Deviation: none Stairs: 14 steps step through gait, 1Handrail Left on the way up and right on the way down? Provided skilled instruction in proper exercise performance Provided skilled manual cues to facilitate proper muscle recruitment and/or form. ASSESSMENT:? Pt tolerated activity well had no LOB, able to go in and out of bed independently despite pt reporting the major issue she has right now is bed mobility going from suping to sitting, pt education for log rolling during transfers and to support abdomen with pillows during movement for splinting to help with minimizing pain during transitions. ?PLAN: Continue global strengthening per plan of care until patient is medically cleared for discharge. ?TREATMENT CODE/TIME: [id number] x2 25 minutes 3:50-4:15pm
[2023-05-06] MEDS: Methocarbamol 750 MG TAB PO ×2 (16:28→20:10)
--- NOTE | 2023-05-06 16:41 | CHAPLAIN ---
I had a brief visit with Marti, explained my role and offered support. She was pleasant, but did not seem interested in a longer conversation. She had a palliative care consult with Dr. Hurtado, who is her PCP as well. 's note show that Marti has decided to stop smoking and may be deciding against mere chemo treatments for her colon cancer. I will continue to visit.
[2023-05-06] MEDS: traMADol 50 MG TAB 100 MG PO (18:11)
[2023-05-06] MEDS: Acetaminophen 325 MG TAB 1000 MG PO (20:07)
[2023-05-06] MEDS: Celecoxib 200 MG CAP PO (20:09)
[2023-05-06 23:11] VITALS: BP 123/74; PULSE 75; RESP 18; TEMP 36.3; O2SAT 99
[2023-05-07] MEDS: Acetaminophen 325 MG TAB 1000 MG PO ×3 (02:12→13:49)
[2023-05-07 07:33] LABS: Abs Immature Grans 0.06 10^3/uL (0.0-0.06); Absolute Basophil Count 0.04 10^3/uL (0.0-0.2); Absolute Eosinophil Count 0.44 10^3/uL (0.0-0.7); Absolute Lymphocyte Count 2.24 10^3/uL (1.2-3.4); Absolute Monocyte Count 0.91 10^3/uL (0.1-0.8); Absolute Neutrophil Count 6.15 10^3/uL (1.2-6.7); Basophils % 0.4; Eosinophils % 4.5; HCT 29.1 % (36.0-46.0); HGB 9.1 g/dL (11.2-15.7); Immature Grans % 0.6; Lymphocytes % 22.8; MCH 26.5 pg (27.0-33.0); MCHC 31.3 % (32.0-36.0); MCV 85 fL (80-95); MPV 9.4 fL (8.0-11.0); Monocytes % 9.2; Neutrophils % 62.5; Platelet Count 368 10^3/uL (130-400); RBC 3.43 10^6/uL (3.93-5.22); RDW 14.7 % (11.7-14.6); RDW-SD 45.2 fL; WBC 9.84 10^3/uL (4.4-10.8)
[2023-05-07] MEDS: Psyllium PKT 1 EACH PO (07:54)
[2023-05-07] MEDS: Pantoprazole 40 MG VIAL IVP (07:58)
[2023-05-07] MEDS: Celecoxib 200 MG CAP PO (08:03)
[2023-05-07] MEDS: Methocarbamol 750 MG TAB PO ×3 (08:03→15:09)
[2023-05-07] MEDS: Enoxaparin 40 MG/0.4 ML SYR SC (08:06)
[2023-05-07 09:49] VITALS: BP 123/76; PULSE 74; RESP 16; TEMP 36.6; O2SAT 97
--- NOTE | 2023-05-07 10:18 | CMPROGNOTE_ITS ---
Date of service: 05/07/23 Time of Service: 10:18 Care Management Progress Note Progress Note Text Progress Note Text: S/O: Jamir was ambulating in her room when CM met with her. She had just eaten lunch and feels and appears very distended. Per pt, she is passing flatus. Francesca is planning to discharge home when medically ready and is not considering SNF for STR. She lives with her significant other and he is supportive. She was unable to work with PT this morning because she had GI symptoms. Jamir has Colon cancer and is being followed by Dr. Hurtado from Palliative and is encouraged to discuss side effects of treatment with her oncologist before fi nalizing her decision to not have chemo. Her primary concern is worsening neuropathy. Marti verbalizes to CM that she is more concerned with quality of life vs. quantity but also mentions that her grand daughter is a steve in college to be a drug and alcohol hr systems analyst and she would like to see her graduate in 2 years. CM will follow. A: 67 year old female admitted to [facility] with Colon Cancer and is s/p left extended coloectomy P: Anticipate Jamir will discharge home with New [facility] RN (if needed)once medically cleared by Surgical Provider. She will likely need to follow up with her PCP, Oncologist, Surgery and Palliative. and her discharge plan of care as recommended.?
[2023-05-07] MEDS: traMADol 50 MG TAB 100 MG PO (11:48)
[2023-05-07] MEDS: Simethicone 80 MG CHEW PO (11:48)
--- NOTE | 2023-05-07 11:58 | PT.INNT ---
Date of service: 05/07/23 Time of Service: 09:27 PT Notes Visit Reasons: Colon Cancer Patient refuses physical therapy this morning due to diarrhea, upset stomach, fatigue and feeling crappy. RN Rashad aware and will follow up. This therapist will check back in the afternoon.
--- NOTE | 2023-05-07 15:07 | DSE_ITS ---
Date of service: 05/07/23 Time of Service: 15:07 DS: Diagnosis Discharge Diagnosis (1) S/P partial colectomy: Status: Acute (2) Colon cancer: Status: Chronic (3) Smoker: Status: Chronic Discharge Plan Disposition Patient Disposition: Home Condition: Stable Discharge Details Reason For Visit: Colon Cancer Admit Date/Time: 05/02/23 08:05 Admit Provider: Brian Zavala Attending Provider: Brian Zavala Primary Care Provider: Betsy Hurtado [facility] Course Hospital Course: Mrs Daniel is a 67 year old female who underwent an extended left hemicolectomy for newly diagnosed colon cancer. She started eating the evening of surgery. Her WBC count was slightly elevated on Friday, but she had no fevers. CRP was also elevated on Friday. Patients leukocytosis has resolved without antibiotics. She has been afebrile now for more then 24 hours. She is eating a regular low fiber diet. Her pain is finally well controlled on Oxycodon, tylenol, celebrex, simethicone and flexeril. We discussed going home today. We will have her follow up on friday for BRIAN removal and possible exchange. She will then follow up with Dr. Zavala in 2 weeks. Return precuations given to patient. PLease call or return to the ER if you develop fevers >101.5, Nausea, Vomiting, bloody diarrhea, worsening abdominal pain that is not transient, increased discharge from your wound. I reviewed the BRIAN dressing with her. Home Meds and New Rx's Prescriptions: New celecoxib 200 mg Capsule 200 mg PO BID Qty: 28 0RF methocarbamol 750 mg Tablet 750 mg PO QID 7 Days Qty: 28 0RF simethicone 80 mg Tablet,Chewable 80 mg PO Q4H PRN PRNQty: 30 0RF oxycodone 5 mg tablet See Rx Instructions .ROUTE .COMPLEX PRNQty: 20 0RF Rx Instructions: 1-2 tab every 6 hours as needed Continued cholecalciferol (vitamin D3) 25 mcg (1,000 unit) capsule 25 mcg PO DAILY Discontinued ibuprofen 600 mg tablet 600 mg PO Q6H PRN Qty: 100 12RF neomycin 500 mg tablet 500 mg PO .COMPLEX Qty: 8 0RF Rx Instructions: 500 mg orally per bowel surgery instructions; instructions provided by ordering providers office metronidazole 500 mg tablet 500 mg PO .COMPLEX Qty: 8 0RF Rx Instructions: 500 mg orally Per Bowel Surgery Instructions; instructions provided by ordering providers office ondansetron 8 mg tablet,disintegrating 8 mg PO .COMPLEX Qty: 3 0RF Rx Instructions: 8 mg orally Per Bowel Surgery Instructions; instructions provided by ordering providers office polyethylene glycol 3350 17 gram/dose powder 17 g PO ONCE Qty: 238 0RF Rx Instructions: Take per colonoscopy instructions provided by ordering providers office bisacodyl [Dulcolax (bisacodyl)] 5 mg tablet,delayed release (DR/EC) 5 mg PO ONCE Qty: 8 0RF Rx Instructions: Take per colonoscopy instructions provided by ordering providers office Discharge Instructions Instructions: Low Fiber Diet (DC) Additional Instructions: Activity at Home after surgery: 1. Make sure you walk at least 4 times per day 2. You should be able to climb a flight of stairs 3. No driving while in pain or taking pain medications 4. No strenuous activity or heavy lifting (>10 lb) for 4 weeks (open surgery) Diet, Nutrition, & wound healin. Avoid alcohol until after you are recovered from your surgery 2. Make sure to eat plenty of lean protein (meat, fish, eggs, cottage cheese, beans) 3. Eat a variety of fruits and vegetables. Eat plenty of high fiber foods to avoid constipation. 4. Drink plenty of liquids to stay hydrated and avoid constipation Pain Medications: 1. Tylenol 650mg every 6 hours as needed and Ibuprofen 600 mg every 6 hours as needed. You may alternate between the 2 medications every 3 hours 2. If a narcotic has been prescribed take as directed only for breakthrough pain For Constipation: 1. Take Milk of Magnesia or MiraLax as needed for constipation Other: 1. You may shower daily. Do not scrub the incisions. Unattach the battery pack like I showed you 2. Do not soak the incisions for 1 week 3. You may alternate ice and heat as needed for pain and swelling Wound Care: 1. Keep the incisions clean and dry Please call our office if you develop: 1. Fevers >101.5 2. Nausea or Vomiting 3. Worsening pain 4. Redness and thick discharge from the wounds If after hours please call the Hospital at and ask to speak to the on-call surgeon Referrals: Dora Garcia MD [ [facility] STAFF PHYSICIAN] - 05/09/23 9:30 am Activity:: as above Equipment/Supplies:: No Equipment Needed Diet:: low fiber Discharge Orders Discharge Orders: Discharge Order (Routine); Ordered 05/07/23 Ordered By: Dora Garcia DS: Summary Time Spent with Patient providing and/or coordinating discharge services: Greater than 30 minutes Status at Discharge Functional status at discharge: independent ambulation Overall status at discharge: patient is back to baseline Mental Status: mental status grossly normal Speech and Movement: speech and movement normal Mood: congruent mood Affect: normal affect Exam Const General: cooperative, comfortable and no acute distress Nutritional Appearance: overweight Orientation: alert and oriented x3 HENMT Head: normocephalic and atraumatic Resp Effort & Inspection: normal respiratory effort Auscultation: clear to auscultation bilaterally Cardio Rate: regular rate Rhythm: regular rhythm GI Inspection: other (BRIAN in place) Palpation: soft and no hepatosplenomegaly Auscultation: normal bowel sounds Psych Mental Status: mental status grossly normal Speech and Movement: speech and movement normal Mood: congruent mood Affect: normal affect DS: Data Vitals/I&O Vitals and I&O: Vital Signs Temperature 97.9 F 05/07/23 09:49 Temperature Source Tympanic 05/07/23 09:49 Pulse 74 05/07/23 09:49 Pulse Rhythm Regular 05/07/23 10:23 Respiratory Rate 16 05/07/23 09:49 Respiratory Effort Normal, Non-Labored 05/07/23 15:01 Respiratory Depth Normal 05/07/23 10:23 Respiratory Pattern Normal 05/07/23 10:23 Blood Pressure 123/76 05/07/23 09:49 Pulse Oximetry 97 05/07/23 09:49 Respiratory End-tidal CO2 22 05/02/23 16:23 Oxygen Delivery Method Room Air 05/07/23 09:49 Oxygen Flow Rate 0 05/07/23 09:49 Pain Level 2 05/07/23 02:12 Intake & Output 05/06/23 05/07/23 05/07/23 23:59 11:59 23:59 Other: Urine Appearance Clear Comment declined toileting, pt said they went prior to more than 2hs ago. declined toileting-wants to sleep Data Completed and Pending Labs on day of discharge: Labs from last 24 hours 05/07/23 06:35 WBC 9.84 RBC 3.43 L Hgb 9.1 L Hct 29.1 L MCV 85 MCH 26.5 L MCHC 31.3 L RDW 14.7 H Plt Count 368 MPV 9.4 Immature Gran % 0.6 Neutrophils % 62.5 Lymphocytes % 22.8 Monocytes % 9.2 Eosinophils % 4.5 Basophils % 0.4 Nucleated RBC % 0.0 Absolute Neutrophils 6.15 Absolute Lymphocytes 2.24 Absolute Monocytes 0.91 H Absolute Eosinophils 0.44 Absolute Basophils 0.04 PFSH All Active Problems Palliative care patient (Acute) S/P partial colectomy (Acute) Colon cancer (Chronic) Smoker (Chronic) Decreased vision (Acute) Medicare welcome exam (Acute) Nicotine dependence (Acute) Thoracic spine dysfunction (Acute) Colonic mass (Acute) distal transverse colon Medical History Abnormal chest xray (07/11/17) Acute streptococcal pharyngitis Acute tonsillitis Cervical arthritis with myelopathy (07/23/17) 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 denies Malignant neoplasm of female breast s/p lumpectomy, chemo; neuropathy issues hands, feet Other abnormal Papanicolaou smear of cervix and cervical HPV (02/12/13) certified ltr sent to request another appt for pap Other elevated white blood cell count (04/07/12) Peritonsillar cellulitis Posterior tibial tendon dysfunction (PTTD) of left lower extremity (02/07/16) Thoracic back pain Vitamin D deficiency disease (02/08/14) Surgical History Breast, Lumpectomy (~2010) Colonoscopy - MAC (04/2023) 06/25/13 History of hemicolectomy (~04/2023) History of surgery on arm Right arm, 1995 Family History Mother Alcohol abuse Depression Heart disease Father , 88 Alcohol abuse Essential hypertension Prostate cancer Sister Breast cancer Brother Hyperlipidemia Heart disease Brother Asthma Depression Brother Alcohol abuse Depression Heart disease Tongue cancer Mouth cancer Maternal Grandfather , 75 Heart disease Paternal Grandfather , 89 Alcohol abuse Prostate cancer Maternal Grandmother , 92 No problems noted. Paternal Grandmother , 90 No problems noted. Son Substance abuse Depression Daughter Substance abuse Alcohol abuse Depression Social History Smoking/Tobacco Use Status: Current every day Tobacco Type: cigarettes Tobacco: How many years used: 50 Quit status: not considering quitting Second Hand Exposure: No Smoking risk assessment performed?: Yes Alcohol Intake: current Alcohol Intake frequency: a few times a month Alcohol type: beer Drug use: Never Substance use type: does not use Counseling given: No Counseling provided: none Caregiver/Support person: No Household members: none Housing: house Communication Needs: None Do you need help understanding health information?: Never Pets and animals: No Sexually active: No Do you think of yourself as: straight/heterosexual Current gender identity: female What is your relationship status?: How often do you talk on the phone with friends or family?: three or more times per week How often do you get together with friends or relatives?: once per week How often do you attend denominational or adventist services?: decline to answer Do you belong to any clubs or organized social groups?: yes Panel score (0-1 are the most socially isolated patients): 2 What type of physical activity do you participate in: walking Duration: 15-30 minutes/day Frequency: 1-2 times per week Ne/Spiritism: No preference Special ne needs: No Seatbelt use: always Helmet use: No Drive intox or ride w/intox truck driver heavy: No Do you feel safe at home: Yes Do you feel safe in your relationship?: Yes Time Spent with Patient Time Spent with Patient: <45 minutes Time was spent: preparing to see the patient(eg.review tests), indepentently interpreting results and counseling the patient
[2023-05-07] MEDS: oxyCODONE-CR 10 MG TABCR PO (15:09)
--- NOTE | 2023-05-07 15:35 | PDOC.CMDIS ---
Date of service: 05/07/23 Time of Service: 15:35 LACE Index Scoring Tool Questions: Length of Stay (in days): 4 - 6 Was the patient admitted via the E.D.?: Yes Comorbidities: Metastatic Solid Tumor (Colon CA, HX of breast CA) E.D. Visits: 1 Answers: Total Score: 13 Risk of Readmission: High Risk Care Management Discharge Plan Reason for Hospitalization: Colon Cancer Discharge Plan: Jamir is discharged home via private vehicle with her partner. She will follow up with community providers and her discharge plan of care as instructed. No new services are ordered prior to discharge. Patient/Family Education Needs: Review discharge instructions, limitations, medications and plan to follow up with community providers. Discuss ask me three.
--- NOTE | 2023-05-07 16:13 | PT.INTREAT ---
Date of service: 05/07/23 Time of Service: 14:02 PT Notes Visit Reasons: Colon Cancer Inpatient Physical Therapy Treatment Note [facility] Date: 05/07/23 PRECAUTIONS: Fall, standard, activity as tolerated. SUBJECTIVE: Patient reports feeling much better in the afternoon than she was this morning. OBJECTIVE: Sitting up cross legged in bed, significant other in recliner, agreeable to therapy. ? PAIN: reports pain is currently well controlled. VITALS: monitored by nursing staff. ? ? BED MOBILITY/TRANSFERS? Rolling L/R: independent Supine-sit: independent ? Sit-supine: independent ? Sit-stand: independent ? Stand-sit: independent ? Bed-Chair: independent ? Chair-bed: independent Gait Training ([id number]): Direct one-on-one instruction and skilled instruction in: [] employing an assistive device [] modified weight-bearing status [x] movement sequencing [] turning and movement with proper form [] Provided verbal cues for equipment management and technique [] Provided instruction in gait pattern [x] Patient education regarding pacing and breathing techniques to maximize activity tolerance? GAIT? Assistive Device: none? Weight bearing: full Assist: SBA ? Distance:?500 feet ? Deviation: reduced viridiana, ? STAIRS: Patient ascends and descends 2 flights of 13 six inch stairs without rest, LOB, or SOB. ? ASSESSMENT:? Patient tolerates therapy well, no complaint of increased pain. PLAN: Continue global strengthening per plan of care until patient is medically cleared for discharge. TREATMENT CODE/TIME: 21 minutes beginning at 14:02
--- NOTE | 2023-05-08 06:02 | INDS_ITS ---
PT Notes Visit Reasons: Colon Cancer Physical Therapy Inpatient Discharge Summary Dates of Treatment: 05/04/23 - 05/07/23 Date: 05/08/23 Referring Doctor: Dora Garcia MD PT Orders: PT CONSULT: s/p surgery Precautions: Fall. Standard. Activity as tolerated. This document serves as a summary of care. No PT services were provided on this date. Patient Profile/Admitting Diagnosis: Jamir is a 67 yo female that underwent open left hemicolectomy surgery on 05/01/23 for colon cancer mass. She was admitted following surgery due to difficulty with pain management. Patient was seen for 5 sessions of PT intervention over the course of 4 days. She was able to demonstrate safety and mobility sufficient to allow for safe return home with no services. PMHX: See EMR Social History/Home Situation: Independent at baseline, 5 [address] with rails, lives with significant other. Equipment Owned/DME: Toilet riser. Subjective: none Objective: ROM: Right Upper Extremity: Shoulder Flexion WFL. Shoulder abduction WFL. Elbow flexion WFL. Wrist flexion WFL. Opening and closing of hand WFL. Left Upper Extremity: Shoulder Flexion WFL. Shoulder abduction WFL. Elbow flexion WFL. Wrist flexion WFL. Opening and closing of hand WFL. Right Lower Extremity: Hip flexion WFL. Hip abduction WFL. Knee flexion WFL. Ankle dorsiflexion WFL. Ankle plantarflexion WFL. Left Lower Extremity: Hip flexion WFL. Hip abduction WFL. Knee flexion WFL. Ankle dorsiflexion WFL. Ankle plantarflexion WFL. Strength: Right Upper Extremity: Grossly 5/5 Left Upper Extremity: Grossly 5/5 Right Lower Extremity: Grossly 5/5 Left Lower Extremity: Grossly 5/5 Pain in abdomen and core weakness may limit functional ability Sensation: Intact as to pain and pressure on bilateral lower extremities. BED MOBILITY/TRANSFERS?Rolling L/R: independent ?Supine-sit: independent ?Sit-supine: independent ?Sit-stand: independent ?Stand-sit: independent ?Bed-Chair: independent ?Chair-bed: independent ? GAIT?Assistive Device: none?Weight bearing: full ?Assist: SBA ?Distance:?500 feet ?Deviation: reduced viridiana?STAIRS: Patient ascends and descends 2 flights of 13 six inch stairs without rest, LOB, or SOB.?? Balance: Static Sitting: Good Dynamic Sitting: Fair Static Standing: Good Dynamic Standing: Good Assessment: Jamir is a 67 yo female that underwent open left hemicolectomy surgery on 05/01/23 for colon cancer mass. She was admitted following surgery due to difficulty with pain management. Patient was seen for 5 sessions of PT intervention over the course of 4 days. She was able to demonstrate safety and mobility sufficient to allow for safe return home with no services. Goals: Goals x1 week 1. Supine-Sit: independent (MET) 2. Sit-Supine: independent (MET) 3. Sit-Stand: independent (MET) 4. Stand-Sit: independent (MET) 5. Bed-Chair: independent (MET) 6. Chair-Bed: independent (MET) 7. Independent gait on level surface with use of least restrictive device for at least 300 feet without report of pain nor dyspnea (MET) 8. Good static and dynamic standing balance/tolerance (MET) 9. Independent with home exercise program (MET) 10. Independent stair negotiation while holding onto bilateral rails for at least 5 steps without report of pain nor dyspnea (MET) Plan of Care/Treatment Plan: D/C from PT services in acute care setting Discharge Plan DISCHARGE RECOMMENDATIONS: Home with without services TREATMENT CODE/TIME: none Thank you for the opportunity to participate in the care of this patient. Jennifer Rosales, PT, DPT [facility] [place], [place]
== END 2023-05-07 16:14 | disposition home or self-care (01) | DRG 330 ==
LOC: PDS 08:08 → MS 17:02
PROVIDERS: Surgery; Admitting Provider Surgery; PCP Family Medicine; Visit Provider Surgery
PROC: 0DTG0ZZ Resection of Left Large Intestine, Open Approach (ICD-10-PCS; CPT 44140; principal; 2023-05-02 11:30)
DX: C18.5 Malignant neoplasm of splenic flexure (principal); M47.12 Other spondylosis with myelopathy, cervical region; F17.210 Nicotine dependence, cigarettes, uncomplicated; G62.2 Polyneuropathy due to other toxic agents; T45.1X5A Adverse effect of antineoplastic and immunosuppressive drugs, initial encounter; Z86.711 Personal history of pulmonary embolism; Z85.3 Personal history of malignant neoplasm of breast; E55.9 Vitamin D deficiency, unspecified; M54.6 Pain in thoracic spine; R00.0 Tachycardia, unspecified
CPT/HCPCS: 44140; 36415; 80048; 85027; 87635; 97110; 97116; 97161; 97530; 99222; J1650; 83735; 85025; 86140; 88307; 88309; J0131; J0690; J1100; J1885; J2250; J2270; J2371; J2405; J2704; J3010

== ENCOUNTER → 2023-05-09 09:16 | Outpatient (BNVA) | payer MEDICARE, MEDICAID, SELFPAY | PROVIDERS: PCP Family Medicine; Referring Provider Family Medicine; Visit Provider Surgery | DX: Z48.815 Encounter for surgical aftercare following surgery on the digestive system (principal); Z90.49 Acquired absence of other specified parts of digestive tract ==

== ENCOUNTER → 2023-05-15 13:08 | Outpatient (BNVA) | payer MEDICARE, MEDICAID, SELFPAY | PROVIDERS: PCP Family Medicine; Referring Provider Family Medicine; Visit Provider Surgery | DX: Z48.815 Encounter for surgical aftercare following surgery on the digestive system (principal) ==

== ENCOUNTER → 2023-05-21 12:56 | Outpatient (BNVA) | payer MEDICARE, MEDICAID, SELFPAY | PROVIDERS: PCP Family Medicine; Referring Provider Family Medicine; Visit Provider Surgery | DX: Z48.815 Encounter for surgical aftercare following surgery on the digestive system (principal) ==

== ENCOUNTER → 2023-06-11 12:57 | Outpatient (BNVA) | payer MEDICARE, MEDICAID, SELFPAY | PROVIDERS: PCP Family Medicine; Visit Provider Surgery | DX: Z48.815 Encounter for surgical aftercare following surgery on the digestive system (principal) ==

== ENCOUNTER → 2023-07-03 14:27 | Outpatient (CLI) | payer MEDICARE, MEDICAID, SELFPAY ==
[2023-07-03 08:29] LABS: Abs Immature Grans 0.03 10^3/uL (0.0-0.06); Absolute Basophil Count 0.11 10^3/uL (0.0-0.2); Absolute Eosinophil Count 0.32 10^3/uL (0.0-0.7); Absolute Lymphocyte Count 2.68 10^3/uL (1.2-3.4); Absolute Monocyte Count 0.79 10^3/uL (0.1-0.8); Absolute Neutrophil Count 5.82 10^3/uL (1.2-6.7); Basophils % 1.1; Eosinophils % 3.3; HCT 37.2 % (36.0-46.0); HGB 11.8 g/dL (11.2-15.7); Immature Grans % 0.3; Lymphocytes % 27.5; MCH 25.7 pg (27.0-33.0); MCHC 31.7 % (32.0-36.0); MCV 81 fL (80-95); MPV 8.7 fL (8.0-11.0); Monocytes % 8.1; Neutrophils % 59.7; Platelet Count 399 10^3/uL (130-400); RDW 15.9 % (11.7-14.6); RDW-SD 46.5 fL; WBC 9.75 10^3/uL (4.4-10.8)
[2023-07-03] MEDS: Barium Sulfate 2% W/V-Creamy Vanilla Smoothie 450 ML BTL 900 ML PO (08:35)
[2023-07-03 08:44] LABS: ALT 19 U/L (14-59); AST 14 U/L (15-37); Albumin 3.1 g/dL (3.4-5.0); Alkaline Phosphatase 95 U/L (46-116); Anion Gap 8.9 mmol/L (3-11); BUN 9 mg/dL (7-18); Bilirubin, Total 0.2 mg/dL (0.2-1.0); CO2 25.1 mmol/L (21.0-32.0); CREATININE 0.9 mg/dL (0.55-1.02); Calcium 8.8 mg/dL (8.5-10.1); Chloride 106 mmol/L (98-107); Estimated GFR 70.51 (mL/min/1.73m2); Glucose 133 mg/dL (74-106); Potassium 3.7 mmol/L (3.5-5.1); Sodium 140 mmol/L (136-145); Total Protein 7.4 g/dL (6.4-8.2)
[2023-07-03] MEDS: Omnipaque 350 MG/ML 500 ML BTL-Imaging package 100 ML IJ (10:10)
[2023-07-03] MEDS: Normal Saline - Diluent 50 ML VIAL IJ (10:10)
--- NOTE | 2023-07-03 10:15 | DI.CT_ITS ---
Exam(s) CT CHEST/ABD/PEL W EXAM: CT CHEST/ABD/PEL W CLINICAL HISTORY: COLON CANCER C18.[address], FURTHER EVALUATION. TECHNIQUE: Imaging Protocol: Axial computed tomography images with coronal and sagittal reformatted images were created and reviewed CONTRAST MATERIAL: Intravenous: Omnipaque 350 Contrast volume:100 ml Oral: Yes. Oral contrast was also administered for bowel opacification. COMPARISON: CT ABD PELVIS WITH CONTRAST from 02/19/2016 CT CHEST WITH CONTRAST from 07/22/[address] CHEST LUNG CANCER SCREEN from 09/26/[address] ABDOMEN PELVIS W from 04/01/2023 FINDINGS: CHEST: LUNGS: 2 small sub cm nodular densities in the right lower lobe are unchanged from CT scan of [facility] 2017 and therefore benign. There are no new right lung nodules. Scarring in the right lung apex i s also unchanged from at least 2017.. In the opposite-left lung there is a small 4 millimeter nodule in the sys left upper lobe superior lingular segment which is also unchanged from least 2017. There is mild increased markings in the lingular segment which are also unchanged from 2017. There is a tiny subpleural nodule in the left lower lobe measuring 2 mm which was not evident in 2017 but which is unchanged from CT scan of 09/26/2022. There are no pleural effusions. No new findings in the tra donavon and mainstem bronchi. MEDIASTINUM: There is no hilar nor mediastinal adenopathy. Partially visualized thyroid unremarkable. CARDIAC: Heart size is normal. There is no pericardial effusion.Caliber of the thoracic aorta is wit hin normal limits. OSSEOUS: No significant osseous lesions.Deformity of the posterior aspect of few right ribs again not ed consistent with healed fracture sites and the appearance of the right scapula also reflects prior fracture, unchanged. There are no acute fractures evident. ABDOMEN: There is no ascites. LIVER: There are no focal hepatic lesions nor dilatation of intrahepatic ducts. There few calcified granulomas in the liver again noted. Largest of these is in the caudate lobe. GALLBLADDER/BILIARY: No obvious gallbladder pathology. CBD is not dilated. PANCREAS: No evidence of pancreatic mass nor dilatation of the pancreatic duct. SPLEEN: Spleen size normal. No splenic lesions. Multiple calcified granulomas in the spleen are aga in noted. Splenic and portal veins are patent. ADRENALS: There are no significant adrenal masses. KIDNEYS: No calculi nor hydronephrosis. No solid renal masses. No cysts evident. ABDOMINAL AORTA: Atherosclerotic but without significant enlargement. LYMPH NODES: There is no retroperitoneal nor paraaortic adenopathy. ABDOMINAL WALL: No evidence of significant anterior abdominal wall nor inguinal hernia. GI: There has been interval surgery since the CT scan of 04/01/2023 which revealed malignancy in left side of the colon splenic flexure region.That part of the colon has been resected. There are no abn ormal appearing bowel loops in this region. However, there is some abnormal streaking in the left si de mesentery at the site of the prior malignancy. Although this may be postsurgical change, the poss ibility that this represents some malignant streaking cannot be excluded, particularly given the aggr essive appearance of the original neoplasm at this level. There is no abnormal fluid collection in t his region. There is no mesenteric lymphadenopathy in this region. PELVIS: LYMPH NODES: There is no intrapelvic nor inguinal adenopathy. GI: No evidence of appendicitis.No significant sigmoid diverticular disease. URINARY BLADDER: No calculi nor masses evident REPRODUCTIVE: Uterus normal size. No abnormal adnexal masses. No free fluid. OSSEOUS: Area of lucency noted in the right iliac bone of the pelvis is unchanged from prior CT scans dating back to at least February 2016. Therefore benign. There are no new osseous lesions identified. No fractures. IMPRESSION: 1. All of the small nodular densities in the lung glover were evident on prior CT scans and most like ly benign. There is a tiny 2 millimeter subpleural nodule in left lower lobe which has only been doc umented since CT scan of September 2022 (was not evident on CT scan of 2017). This is unchanged from September 2022. Has benign appearance. May be a small granuloma, not yet calcified, given the multip le calcified granulomas noted in the spleen in this patient. There is no new intrathoracic adenopath y and there no pleural effusions. 2. The previously present aggressive colon neoplasm seen in the region of the splenic flexure on the March 2023 CT scan has been resected. There is no abnormal fluid collection or lymphadenopathy in t his region nor abnormal appearing bowel loops. However, there is some mesenteric fat streaking in th is region in the lateral aspect of the abdomen. Is difficult to determine if this is just postsurgic al change or if this is remnant or recurrence malignancy in the mesentery at this level. Recommend r epeat scanning after appropriate clinical interval to determine ability versus progression of this fi nding. 3. Stable appearing lucent bone lesion in the right-side of the pelvis which is unchanged from CT sca n of 2016 and therefore benign. There are no new lytic nor blastic osseous lesions evident. RADIATION DOSE DELIVERED: Total DLP DATA REPOSITORY: All CT scans at this facility are submitted to the National Radiology Data Registry (NRDR) Dose Index Registry (DIR) with the [employer] (A[employer]). RADIATION OPTIMIZATION: All CT scans at this facility use at least one of these dose optimization te chniques: automated exposure control; mA and/or kV adjustment per patient size (includes targeted exa ms where dose is matched to clinical indication); or iterative reconstruction.
[2023-07-03 17:27] LABS: CEA 2.8 ng/mL (See Note)
== END ==
PROVIDERS: PCP Family Medicine; Visit Provider Internal Medicine Hematology & Oncology
DX: C18.6 Malignant neoplasm of descending colon (principal); R91.8 Other nonspecific abnormal finding of lung field
CPT/HCPCS: 74177; 80053; 71260; 82378; 85025

== ENCOUNTER 2023-07-04 18:41 | Outpatient (CLI) | payer MEDICARE, SELFPAY | END 2023-07-04 18:42 | disposition home or self-care (01) | LOC: LBO 18:42 | PROVIDERS: PCP Family Medicine; Visit Provider Internal Medicine Hematology & Oncology | DX: Z79.631 Long term (current) use of antimetabolite agent (principal); C18.6 Malignant neoplasm of descending colon | CPT/HCPCS: 36415; 81232; 85025 ==

== ENCOUNTER 2023-08-01 03:34 | Outpatient (CLI) | payer MEDICARE, SELFPAY ==
[2023-08-01 10:56] LABS: Abs Immature Grans 0.02 10^3/uL (0.0-0.06); Absolute Basophil Count 0.06 10^3/uL (0.0-0.2); Absolute Eosinophil Count 0.16 10^3/uL (0.0-0.7); Absolute Lymphocyte Count 2.16 10^3/uL (1.2-3.4); Absolute Monocyte Count 0.64 10^3/uL (0.1-0.8); Absolute Neutrophil Count 3.32 10^3/uL (1.2-6.7); Basophils % 0.9; Eosinophils % 2.5; HCT 42.1 % (36.0-46.0); Immature Grans % 0.3; MCH 24.9 pg (27.0-33.0); MCHC 30.9 % (32.0-36.0); MCV 81 fL (80-95); MPV 8.7 fL (8.0-11.0); Monocytes % 10.1; Neutrophils % 52.2; Platelet Count 306 10^3/uL (130-400); RBC 5.22 10^6/uL (3.93-5.22); RDW 16.8 % (11.7-14.6); RDW-SD 48.6 fL; WBC 6.36 10^3/uL (4.4-10.8)
[2023-08-01 11:20] LABS: ALT 24 U/L (14-59); AST 20 U/L (15-37); Albumin 3.4 g/dL (3.4-5.0); Alkaline Phosphatase 78 U/L (46-116); Anion Gap 9.7 mmol/L (3-11); BUN 7 mg/dL (7-18); Bilirubin, Total 0.3 mg/dL (0.2-1.0); CO2 26.3 mmol/L (21.0-32.0); CREATININE 1.1 mg/dL (0.55-1.02); Calcium 9.1 mg/dL (8.5-10.1); Chloride 104 mmol/L (98-107); Estimated GFR 55.42 (mL/min/1.73m2); Glucose 143 mg/dL (74-106); Potassium 3.8 mmol/L (3.5-5.1); Sodium 140 mmol/L (136-145)
[2023-08-02 12:59] LABS: CEA 3.1 ng/mL (See Note)
== END 2023-08-01 03:35 | disposition home or self-care (01) ==
LOC: LBO 03:34
PROVIDERS: PCP Family Medicine; Visit Provider Internal Medicine Hematology & Oncology
DX: C18.6 Malignant neoplasm of descending colon (principal); Z79.631 Long term (current) use of antimetabolite agent
CPT/HCPCS: 36415; 80053; 81232; 82378; 85025

== ENCOUNTER → 2023-09-24 10:51 | Outpatient (BNVA) | payer MEDICARE, MEDICAID, SELFPAY | PROVIDERS: PCP Family Medicine; Referring Provider Family Medicine; Visit Provider Surgery | DX: Z01.818 Encounter for other preprocedural examination (principal) | CPT/HCPCS: 99213 ==

== ENCOUNTER 2023-10-10 11:46 | Day surgery (SDC) | payer MEDICARE, MEDICAID, SELFPAY ==
--- NOTE | 2023-10-09 19:05 | W.PM.DSUDISC ---
Date of service: 10/10/23 Time of Service: 14:26 Discharge Plan Disposition Patient Disposition: Home Condition: Good Discharge Details Reason For Visit: Surveillance colonoscopy Attending Provider: Brian Zavala Primary Care Provider: Betsy Hurtado Home Meds and New Rx's Prescriptions: Continued cholecalciferol (vitamin D3) 25 mcg (1,000 unit) capsule 25 mcg PO DAILY oxycodone 5 mg tablet 5 mg PO QHS MDD 5 PRN (Reason: pain) Qty: 30 0RF Patient Comments: Has not taken for over 2 weeks+ Discontinued polyethylene glycol 3350 17 gram/dose powder 238 g PO ONCE Qty: 238 0RF Rx Instructions: take per colonoscopy instructions bisacodyl [Dulcolax (bisacodyl)] 5 mg tablet,delayed release (DR/EC) 5 mg PO ONCE Qty: 4 0RF Rx Instructions: take per colonoscopy instructions Discharge Instructions Additional Instructions: The knee, only so happy to see you today as always. I hope the colonoscopy was fairly comfortable. I did find a total of 6 polyps today. I removed 4 of these completely. The other 2 are little bit larger. 1 was removed in piecemeal, and the tissue around was cauterized (or burnt). The other was incompletely removed. It is immediately adjacent to the connection, and I am a little bit worried if we manipulated too much that we may cause injury to the connection in your colon. I did get a fine sample of it though, and when I have the report on all of these specimens, I will be in touch. If you have any questions in the meantime, please do not hesitate to call at any point. I hope you and your have a great weekend. 1. If tolerated, consume a soft, low fiber diet for 1-2 days. [address] Do not drive, drink alcohol, operate machinery, make critical decisions, or do activities that require coordination or balance for 24 hours. 3. Because air was put into your colon during the procedure, expelling air from your rectum (passing gas or farting) is normal. 4. You may not have a bowel movement for 1-3 days because of the colonoscopy prep. This is normal. 5. Go directly to the emergency room if you notice any of the following: Develop chills (warm to touch), or if you have a thermometer and your temperature is above 101 Difficulty breathing or difficultly swallowing Persistent vomiting Severe abdominal pain, other than gas cramps Severe chest pain Black, tarry stools Any bleeding ? exceeding one tablespoon 6. Call your physician if the site where your intravenous was started becomes red, swollen, painful, and warm to touch. 7. Your physician has reviewed your pre-procedure medications. Please continue to take those medications as previously ordered. You will be given specific information/education regarding any changes to your medications before leaving. Activity:: Activity as Tolerated Diet:: As Tolerated Discharge Orders Discharge Orders: Discharge Order (Routine); Ordered 10/09/23 Ordered By: Brian Zavala DS: Diagnosis Discharge Diagnosis (1) Colon cancer: Status: Chronic Asessment and Plan: Follow-up on polypectomy results
--- NOTE | 2023-10-09 19:07 | W.COLOREPORT ---
Date of service: 10/10/23 Time of Service: 14:28 Colonoscopy Report Date of procedure: 10/10/23 Pre-op diagnosis general: Colon cancer Post-op diagnosis procedure note: other (Colon polyps) Procedure: [facility] colonscopy Surgeon: Brian Zavala Anesthesia Type: General:No Airway Estimated blood loss (mL): 10 Pathology: other (0.5 cm cecal polyp, 0.5 cm ascending colon polyp, 0.25 cm polyp at 70 cm, 1 cm polyp at 65 cm, 0.25 cm polyp at the anastomosis (#1), 0.75 cm polyp at the anastomosis (#2)) Complications: None Disposition: same day Indications: Jamir is 67 years old. She was diagnosed with colon cancer last year. She underwent hemicolectomy. She is here for her 6 month follow up colonoscopy Prep: Miralax/Dulcolax Procedure Start Time: 13:43 Procedure End Time: 14:13 Retraction Time: 23 Findings: 0.5 cm cecal polyp, 0.5 cm ascending colon polyp, 0.25 cm polyp at 70 cm, 1 cm polyp at 65 cm, 0.25 cm polyp at the anastomosis (#1), 0.75 cm polyp at the anastomosis (#2) Procedure Description: After the induction anesthesia, and with the patient in left lateral decubitus position, I began by performing an external anorectal exam.? Perineum and skin were normal, as was the anal verge.? There was no evidence of external hemorrhoids.? Next, I performed a digital rectal exam.? I did not appreciate any abnormal findings.? Next, I advanced a colonoscope into the rectal vault.? I performed retroflexion.? This was normal.? Using insufflation, I then advanced the colonoscope beyond the rectal folds and into the sigmoid colon before advancing towards the cecum.? I was able to easily traverse the anastomosis, which was generally healthy appearing. There are no signs of ischemia or stricture.? The scope was noted to be in the cecum by identification of the ileocecal valve and appendiceal orifice.? Within the cecum was a 0.5 cm pedunculated polyp. This was removed with cold forceps. There was also a 0.5 cm pedunculated polyp in the ascending colon that was also removed completely with cold forceps. There was minimal bleeding from either of the sites. Around 70 cm from the anal verge was a 0.25 cm flat polyp. This was removed with cold forceps. Just a few centimeters away around 65 cm from the anus was a larger more flat polyp. This was partially removed with snare polypectomy and 3 segments. I would estimate the size of this polyp to be about 1 cm in its greatest dimension. The remaining surrounding soft tissue was gently cauterized. As I came back to the anastomosis, there was a less than 0.25 cm flat polyp on the distal side. This was removed with cold forceps. ?Along a fold of the more proximal portion of the anastomosis was a flat polyp that was heaped up against the staple line. This was sampled with multiple biopsies using cold forceps. I do not think this can safely be removed in its entirety given its proximity to her anastomosis. Regardless, we will send off the tissue for pathology, and reassess once we have final pathologic diagnosis. Once the scope was withdrawn to the level of the rectum, great care was taken to examine portions of the rectal folds.? Finally, the scope was withdrawn and the patient was brought to the same-day surgery recovery unit as the anesthetic wore off. ?The findings and instructions were shared with the patient prior to discharge. [place] Bowel Prep [place] Bowel Prep Right Colon: 3 Left Colon: 3 Transverse Colon: 3 Total Score: 9
[2023-10-10 12:24] VITALS: BP 131/78; PULSE 102; RESP 22; TEMP 36.4; O2SAT 96
[2023-10-10] MEDS: Lactated Ringers 1,000 ML 80 ML IV (12:48)
--- NOTE | 2023-10-10 12:54 | W.ANESPRE ---
General Info Date of Service Date Performed: 10/10/23 Height: 5 ft 4 in Weight: 81.9 kg Body Mass Index (BMI): 30.9 Surgical Procedure: Operation Date: 10/10/23 11:35 Proposed Procedure Side Surgeon dian Zavala MD Meds Allergies and Home Medications Allergies Allergy/AdvReac Type Severity Reaction Status Date / Time trastuzumab [From Herceptin] Allergy Severe Anaphylaxis Verified 10/10/23 12:22 Penicillins Allergy Intermediate Hives Verified 10/10/23 12:22 venom-honey bee Allergy Intermediate Large Verified 10/10/23 12:22 local reaction meperidine AdvReac Mild syncope Verified 10/10/23 12:22 meperidine HCl [From Demerol] AdvReac passed out Verified 10/10/23 12:22 HORNETS Allergy Unknown Swelling/Ed Uncoded 10/10/23 12:22 dyana Home Medication Medication Instructions Recorded cholecalciferol (vitamin D3) 25 25 mcg PO DAILY 05/30/22 mcg (1,000 unit) capsule oxycodone 5 mg tablet 5 mg PO QHS PRN pain #30 tabs 09/10/23 Current Visit Medications: Current Medications Generic Name Dose Route Start Last Admin Trade Name Freq PRN Reason Stop Dose Admin Hyoscyamine Sulfate 0.125 mg 10/09/23 19:08 Hyoscyamine 0.125 Mg Sl/Oral/Chew SL 11/08/23 19:07 DIRECTED PRN Ringer's Solution 1,000 mls @ 80 mls/hr 10/10/23 06:00 10/10/23 12:48 IV 10/10/23 23:59 80 mls/hr INFUSION DARON Administration IV Miscellaneous Supplies 1 each 10/10/23 06:00 Iv Access IV 10/10/23 23:59 DIRECTED DARON Ondansetron HCl 4 mg 10/09/23 19:08 Ondansetron 4 Mg/2 Ml Vial IVP 11/08/23 19:07 Q4H PRN PRN Nausea / Vomiting Sodium Chloride 0 ml 10/10/23 06:00 Normal Saline Flush 10 Ml Syr IV 10/10/23 23:59 PRN PRN Sodium Chloride 0 ml 10/10/23 06:00 Normal Saline 10 Ml Vial IJ 10/10/23 23:59 DIRECTED PRN Sterile Water 0 ml 10/10/23 06:00 Water,Injection,Sterile 10 Ml Vial IJ 10/10/23 23:59 DIRECTED PRN PFSH Active Problems Active Problems: Problem Status Onset Code History of breast cancer in female Z85.3 Mass of lingula of lung R91.8 History of colon cancer, stage III Z85.038 Palliative care patient Z51.5 Colon cancer C18.9 Smoker F17.200 Decreased vision H54.7 Medicare welcome exam Z00.00 Nicotine dependence F17.200 Thoracic spine dysfunction M53.84 Medical History Medical History Peritonsillar cellulitis Acute streptococcal pharyngitis Acute tonsillitis Iatrogenic pulmonary embolism and infarction Pt. 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) Cervical arthritis with myelopathy (07/23/17) Abnormal chest xray (07/11/17) Surgical History Surgical History S/P partial colectomy (~05/02/23) History of surgery on arm Right arm, 1994 Colonoscopy - MAC (04/2023) 06/25/13 Breast, Lumpectomy (~2010) Tobacco Smoking/Tobacco Use Status: Current every day Tobacco Type: cigarettes Passive smoking exposure: Yes Second hand exposure: Yes Alcohol Alcohol Intake: current Alcohol intake frequency: a few times a week Alcohol type: beer Substance Use Substance use: Never Substance use type: does not use Counseling provided: none Vital Signs and Lab Results Vital Signs Most Recent Vital Signs in EMR: Most Recent Vital Signs Temp Pulse Resp BP Pulse Ox 36.4 C L 102 H 22 131/78 96 10/10/23 12:24 10/10/23 12:24 10/10/23 12:24 10/10/23 12:24 10/10/23 12:24 Lab Results Blood Type / Crossmatch: No Data to Display Complete Blood Count: No Data to Display Complete Metabolic Panel: No Data to Display Liver Function Panel: No Data to Display Coagulation Panel: No Data to Display Cardiac Panel: No Data to Display Arterial Blood Gas: No Data to Display Venous Blood Gas: No Data to Display Pancreas Panel: No Data to Display Thyroid Panel: No Data to Display Infectious Disease: No Data to Display Blood Cultures: No Data to Display Toxicology Panel: No Data to Display Imaging and Studies Imaging and Studies Study information below may be from another EMR and interpreted by another provider. Please see original notes in EMR for more complete details. Stress Test Summary: 06/18: no echo evidence for stress induced ischemia. Echocardiogram Summary: 2012: lvef 60%, trace TR. Anesthesia Assessment and Plan Anesthesia History Personal History: No History of Anesthesia Complications Family History: No Family History of Anesthesia Complications Exercise Tolerance Exercise Tolerance: Metabolic Equivalents>4 Pertinent Negatives Pertinent Negatives: No Symptoms of GERD, No Major Cardiovascular Symptoms or Complaints, No Major Pulmonary Symptoms or Complaints and No History of CVA/TIA Cardiac & Pulmonary Exam Cardiac Exam: Normal S1/S2 Heart Sounds Pulmonary Exam: Clear Bilateral Breath Sounds Implantable Cardiac Device Does patient have a Pacemaker or an ICD?: No Airway Exam Known Difficult Airway: No Mallampati Class: 3 Mouth Opening: Normal (> 3cm) Thyromental Distance: Less than 3 cm Neck Range of Motion: Limited ROM Neck Circumference: Thick Teeth Condition: Normal Dentition ASA Classification ASA Score: ASA 2 Emergency Case?: No NPO Status NPO Status: NPO Clears >2 hours, Solids >8 hours Anesthesia Plan Resuscitation Status: Full Code Anesthesia Technique: General Anesthesia Airway Planned: Natural Airway Monitors Used: Standard Monitors
[2023-10-10 12:56] VITALS: BMI 30.9
--- NOTE | 2023-10-10 13:52 | BOWEL_PTH ---
PATIENT: Marti Daniel LOC: [facility] U#:[id number] AGE/SX: 67/F ROOM: RE10/10/[address]: Brian Zavala MD : [id number] BED: DIS: 10/10/2023 SPEC #: [id number] RECD: 10/10/23 18:05 STATUS: [facility] #: [id number] ANNA MARIE: 10/10/23 13:[address]: Brian Zavala DEPT: Surgical Specimen RECD BY: Armida Bradford ENTERED: 10/10/23 18:06 SP TYPE: Bowel OTHR DR: Betsy Hurtado MD, DC Tissues: 1 - BIOPSY BOWEL 2 - BIOPSY BOWEL 3 - BIOPSY BOWEL 4 - BIOPSY BOWEL 5 - BIOPSY BOWEL 6 - BIOPSY BOWEL Procedures: GROSS AND MICRO LEVEL 4 Comments: [id number]
[2023-10-10 14:20] VITALS: BP 122/82; PULSE 88; RESP 17; TEMP 36.4; O2SAT 96
[2023-10-10] MEDS: Ondansetron 4 MG/2 ML VIAL IVP (14:41)
[2023-10-10 14:50] VITALS: BP 125/77; PULSE 86; RESP 16; TEMP 36.4; O2SAT 98
--- NOTE | 2023-10-10 15:02 | W.ANESPOSTOP ---
Postoperative Evaluation Date, Time and Location Date Performed: 10/10/23 Time Performed: 14:50 Patient Location: Day Surgery Unit Vital Signs Most Recent Imported Vital Signs: Most Recent Vital Signs Temp Pulse Resp BP Pulse Ox 36.4 C L 86 16 125/77 98 10/10/23 14:50 10/10/23 14:50 10/10/23 14:50 10/10/23 14:50 10/10/23 14:50 Pain Score Most Recent Pain Score: Most Recent Pain Score Pain Level 0 10/10/23 14:50 Assessment Mental Status: Awake (Alert & Oriented to Patient Baseline) Airway and Respiratory Function: Patent airway with normal (patient baseline) respiratory exam Cardiovascular Function: Hemodynamically Stable Hydration Status: Adequately Hydrated Nausea & Vomiting: No Nausea or Vomiting Pain: Pt. Denies Any Pain Peripheral Nerve Block: Patient did not receive a nerve block
== END 2023-10-10 16:00 | disposition home or self-care (01) ==
LOC: SUR 11:47
PROVIDERS: PCP Family Medicine; Visit Provider Surgery
PROC: 0DJD8ZZ Inspection of Lower Intestinal Tract, Via Natural or Artificial Opening Endoscopic (ICD-10-PCS; CPT 45378; principal; 2023-10-10 11:30)
DX: Z12.11 Encounter for screening for malignant neoplasm of colon (principal); Z85.038 Personal history of other malignant neoplasm of large intestine; R91.8 Other nonspecific abnormal finding of lung field; F17.200 Nicotine dependence, unspecified, uncomplicated; D37.4 Neoplasm of uncertain behavior of colon; D12.6 Benign neoplasm of colon, unspecified; D12.4 Benign neoplasm of descending colon
CPT/HCPCS: 45385; 45380; 88305; J2001; J2371; J2405; J2704

== ENCOUNTER → 2023-11-14 00:20 | Outpatient (CLI) | payer MEDICARE, MEDICAID, SELFPAY ==
[2023-11-14 13:10] LABS: Abs Immature Grans 0.01 10^3/uL (0.0-0.06); Absolute Basophil Count 0.11 10^3/uL (0.0-0.2); Absolute Eosinophil Count 0.28 10^3/uL (0.0-0.7); Absolute Lymphocyte Count 3.37 10^3/uL (1.2-3.4); Absolute Monocyte Count 0.67 10^3/uL (0.1-0.8); Absolute Neutrophil Count 4.41 10^3/uL (1.2-6.7); Basophils % 1.2; Eosinophils % 3.2; HCT 42.3 % (36.0-46.0); HGB 13.6 g/dL (11.2-15.7); Immature Grans % 0.1; Lymphocytes % 38.1; MCH 27.6 pg (27.0-33.0); MCHC 32.2 % (32.0-36.0); MCV 86 fL (80-95); MPV 8.9 fL (8.0-11.0); Monocytes % 7.6; Neutrophils % 49.8; Platelet Count 316 10^3/uL (130-400); RBC 4.93 10^6/uL (3.93-5.22); RDW 16.8 % (11.7-14.6); RDW-SD 52.6 fL; WBC 8.85 10^3/uL (4.4-10.8)
[2023-11-14 13:35] LABS: ALT 25 U/L (14-59); AST 18 U/L (15-37); Albumin 3.5 g/dL (3.4-5.0); Alkaline Phosphatase 89 U/L (46-116); Anion Gap 8.4 mmol/L (3-11); BUN 9 mg/dL (7-18); Bilirubin, Total 0.3 mg/dL (0.2-1.0); CO2 27.6 mmol/L (21.0-32.0); CREATININE 0.9 mg/dL (0.55-1.02); Chloride 105 mmol/L (98-107); Estimated GFR 70.07 (mL/min/1.73m2); Glucose 98 mg/dL (74-106); Potassium 4.1 mmol/L (3.5-5.1); Sodium 141 mmol/L (136-145); Total Protein 7.4 g/dL (6.4-8.2)
[2023-11-14] MEDS: Barium Sulfate 2% W/V-Creamy Vanilla Smoothie 450 ML BTL PO ×2 (14:26→14:27)
[2023-11-14] MEDS: Normal Saline - Diluent 50 ML VIAL IJ (15:00)
[2023-11-14] MEDS: Omnipaque 350 MG/ML 500 ML BTL-Imaging package 100 ML IJ (15:00)
--- NOTE | 2023-11-14 15:06 | DI.CT_ITS ---
Exam(s) CT CHEST/ABD/PEL W EXAM: CT CHEST/ABD/PEL W CLINICAL HISTORY: C18.6 Malig Neoplasm of descending colon. TECHNIQUE: Imaging Protocol: Axial computed tomography images with coronal and sagittal reformatted images were created and reviewed CONTRAST MATERIAL: Intravenous: Omnipaque 350 Contrast volume:100 ml Oral: None COMPARISON: CT CT CHEST/ABD/PEL W from 07/03/2023 FINDINGS: CHEST: LUNGS: The 2 previously described small nodules in the right lower lobe again remain stable. No size increase. No increase in number of lung nodules. No new confluent infiltrates and there are no ple ural effusions. MEDIASTINUM: There is no new hilar nor mediastinal adenopathy. Visualized thyroid unremarkable. CARDIAC: Heart size is normal. There is no pericardial effusion.Caliber of the thoracic aorta is wit hin normal limits. OSSEOUS: No significant osseous lesions.. ABDOMEN: GI: The administered oral contrast has reached the rectum. There are no new abnormal findings at the large bowel anastomosis site in left side of the abdomen. The previously described left sided mesen teric streaking has significantly decreased. No new masses nor new omental/mesenteric lymphadenopath y evident in this region. No omental cake. No bowel obstruction, free air, nor abscess. LIVER: There are no focal hepatic lesions nor dilatation of intrahepatic ducts. GALLBLADDER/BILIARY: No obvious gallbladder pathology. CBD is not dilated. PANCREAS: No evidence of pancreatic mass nor dilatation of the pancreatic duct. SPLEEN: Spleen is not enlarged. There are no intrasplenic lesions. Multiple calcified splenic granul omas are noted. Splenic and portal veins are patent. ADRENALS: There are no significant adrenal masses. KIDNEYS: No calculi nor hydronephrosis. No solid renal masses. No cysts evident. ABDOMINAL AORTA: Abdominal aorta is not enlarged. LYMPH NODES: There is no retroperitoneal nor paraaortic adenopathy. ABDOMINAL WALL: No evidence of significant anterior abdominal wall nor inguinal hernia. GI: There is no evidence of bowel obstruction.No free air nor abscess. PELVIS: LYMPH NODES: There is no intrapelvic nor inguinal adenopathy. GI: No evidence of appendicitis.No evidence of sigmoid diverticulitis. URINARY BLADDER: No calculi nor masses evident REPRODUCTIVE: Uterus and adnexal regions appear unremarkable. OSSEOUS: Area of lucency in the right iliac bone of the pelvis is unchanged from prior CT scans datin g back to 2016. No new osseous lesions evident. SI joints appear unremarkable. IMPRESSION: 1. Continued stable appearance of the 2 small sub cm right lower lobe nodules, unchanged from CT scan s dating back to 2017 and therefore benign. No pleural effusions. 2. Left-sided colon anastomosis appears intact with no evidence of free air common bowel obstruction, nor abscess. Previously described streaking in the mesenteric fat in this region has significantly decreased. No new lymphadenopathy in the mesentery at this level. RADIATION DOSE DELIVERED: Total DLP DATA REPOSITORY: All CT scans at this facility are submitted to the National Radiology Data Registry (NRDR) Dose Index Registry (DIR) with the [employer] (A[employer]). RADIATION OPTIMIZATION: All CT scans at this facility use at least one of these dose optimization te chniques: automated exposure control; mA and/or kV adjustment per patient size (includes targeted exa ms where dose is matched to clinical indication); or iterative reconstruction.
[2023-11-14 23:34] LABS: CEA 3.1 ng/mL (See Note)
== END ==
PROVIDERS: PCP Family Medicine; Visit Provider Nurse Practitioner Family
DX: C18.6 Malignant neoplasm of descending colon (principal)
CPT/HCPCS: 74177; 80053; 71260; 82378; 85025

== ENCOUNTER 2023-12-24 09:55 | Outpatient (CLI) | payer MEDICARE, MEDICAID, SELFPAY ==
[2023-12-24 10:07] LABS: Abs Immature Grans 0.03 10^3/uL (0.0-0.06); Absolute Lymphocyte Count 2.76 10^3/uL (1.2-3.4); Absolute Monocyte Count 0.82 10^3/uL (0.1-0.8); Absolute Neutrophil Count 8.19 10^3/uL (1.2-6.7); Basophils % 0.8 %; Eosinophils % 1.7 %; HCT 48.6 % (36.0-46.0); HGB 15.9 g/dL (11.2-15.7); Immature Grans % 0.2 %; Lymphocytes % 22.8 %; MCH 28.9 pg (27.0-33.0); MCHC 32.7 % (32.0-36.0); MCV 88 fL (80-95); MPV 8.7 fL (8.0-11.0); Monocytes % 6.8 %; Neutrophils % 67.7 %; Platelet Count 302 10^3/uL (130-400); RDW 15.8 % (11.7-14.6); RDW-SD 51.3 fL
[2023-12-24 10:08] LABS: Absolute Eosinophil Count 0.21 10^3/uL (0.0-0.7)
[2023-12-24 10:22] LABS: ALT 27 U/L (14-59); AST 21 U/L (15-37); Albumin 3.5 g/dL (3.4-5.0); Alkaline Phosphatase 87 U/L (46-116); Anion Gap 6.7 mmol/L (3-11); BUN 8 mg/dL (7-18); Bilirubin, Total 0.4 mg/dL (0.2-1.0); CO2 28.3 mmol/L (21.0-32.0); CREATININE 1.1 mg/dL (0.55-1.02); Chloride 104 mmol/L (98-107); Estimated GFR 55.07 (mL/min/1.73m2); Glucose 143 mg/dL (74-106); Potassium 3.9 mmol/L (3.5-5.1); Sodium 139 mmol/L (136-145); Total Protein 7.7 g/dL (6.4-8.2)
[2023-12-24 18:53] LABS: CEA 3.1 ng/mL (See Note)
== END 2023-12-24 09:56 | disposition home or self-care (01) ==
LOC: LBO 09:57
PROVIDERS: PCP Family Medicine; Visit Provider Internal Medicine Hematology & Oncology
DX: C18.6 Malignant neoplasm of descending colon (principal)
CPT/HCPCS: 36415; 80053; 82378; 85025

== ENCOUNTER 2024-03-22 04:08 | Outpatient (CLI) | payer MEDICARE, MEDICAID, SELFPAY ==
[2024-03-22 09:47] LABS: Abs Immature Grans 0.04 10^3/uL (0.0-0.06); Absolute Basophil Count 0.12 10^3/uL (0.0-0.2); Absolute Eosinophil Count 0.23 10^3/uL (0.0-0.7); Absolute Lymphocyte Count 2.97 10^3/uL (1.2-3.4); Basophils % 1.1 %; Eosinophils % 2.1 %; HGB 15.8 g/dL (11.2-15.7); Immature Grans % 0.4 %; MCH 30.1 pg (27.0-33.0); MCHC 32.9 % (32.0-36.0); MCV 91 fL (80-95); MPV 8.9 fL (8.0-11.0); Monocytes % 8.2 %; Neutrophils % 61.2 %; Platelet Count 285 10^3/uL (130-400); RBC 5.25 10^6/uL (3.93-5.22); RDW 14.4 % (11.7-14.6); RDW-SD 48.1 fL; WBC 11.01 10^3/uL (4.4-10.8)
[2024-03-22 09:48] LABS: Absolute Neutrophil Count 6.74 10^3/uL (1.2-6.7)
[2024-03-22 10:02] LABS: ALT 23 U/L (14-59); AST 17 U/L (15-37); Albumin 3.5 g/dL (3.4-5.0); Alkaline Phosphatase 88 U/L (46-116); Anion Gap 8.7 mmol/L (3-11); BUN 7 mg/dL (7-18); Bilirubin, Total 0.34 mg/dL (0.2-1.0); CO2 25.3 mmol/L (21.0-32.0); CREATININE 1.1 mg/dL (0.55-1.02); Calcium 9.3 mg/dL (8.5-10.1); Chloride 105 mmol/L (98-107); Estimated GFR 55.07 (mL/min/1.73m2); Glucose 146 mg/dL (74-106); Potassium 3.9 mmol/L (3.5-5.1); Sodium 139 mmol/L (136-145); Total Protein 7.6 g/dL (6.4-8.2)
[2024-03-22 18:34] LABS: CEA 3.1 ng/mL (See Note)
== END 2024-03-22 04:09 | disposition home or self-care (01) ==
LOC: LBO 04:08
PROVIDERS: PCP Family Medicine; Visit Provider Internal Medicine Hematology & Oncology
DX: C18.6 Malignant neoplasm of descending colon (principal)
CPT/HCPCS: 36415; 80053; 82378; 85025

== ENCOUNTER → 2024-04-15 10:24 | Outpatient (BNVA) | payer MEDICARE, MEDICAID, SELFPAY | PROVIDERS: PCP Family Medicine; Referring Provider Family Medicine; Visit Provider Physical Therapy Assistant | DX: Z12.11 Encounter for screening for malignant neoplasm of colon (principal) ==

== ENCOUNTER 2024-05-03 08:07 | Day surgery (SDC) | payer MEDICARE, MEDICAID, SELFPAY ==
--- NOTE | 2024-05-02 11:32 | W.PM.DSUDISC ---
Date of service: 05/03/24 Time of Service: 11:06 Discharge Plan Disposition Patient Disposition: Home Condition: Good Discharge Details Reason For Visit: screening colonoscopy Attending Provider: Brian Zavala Primary Care Provider: Betsy Hurtado Home Meds and New Rx's Prescriptions: Continued cholecalciferol (vitamin D3) 25 mcg (1,000 unit) capsule 25 mcg PO DAILY Discontinued bisacodyl [Dulcolax (bisacodyl)] 5 mg tablet,delayed release (DR/EC) 5 mg PO ONCE Qty: 4 0RF Rx Instructions: Take per colonoscopy instructions provided by ordering providers office polyethylene glycol 3350 17 gram/dose powder 17 g PO ONCE Qty: 238 0RF Rx Instructions: Take per colonoscopy instructions provided by ordering providers office Discharge Instructions Additional Instructions: Emma, so happy to see you today. I hope you are comfortable during the colonoscopy. Similar to before, I did find to remove some polyps today. In total, there were 5. Generally, compared to your previous scopes, I would say that the seem a little bit smaller overall. Just like before, we will send it off to the pathologist, and once we have that information, we will be in touch with any other recommendations. Based on what I saw here today, I think it probably would be reasonable to move to a 1 year follow-up, but lets see what the pathology results are before committing to any decisions. 1. If tolerated, consume a soft, low fiber diet for 1-2 days. 2[address] Do not drive, drink alcohol, operate machinery, make critical decisions, or do activities that require coordination or balance for 24 hours. 3. Because air was put into your colon during the procedure, expelling air from your rectum (passing gas or farting) is normal. 4. You may not have a bowel movement for 1-3 days because of the colonoscopy prep. This is normal. 5. Go directly to the emergency room if you notice any of the following: Develop chills (warm to touch), or if you have a thermometer and your temperature is above 101 Difficulty breathing or difficultly swallowing Persistent vomiting Severe abdominal pain, other than gas cramps Severe chest pain Black, tarry stools Any bleeding ? exceeding one tablespoon 6. Call your physician if the site where your intravenous was started becomes red, swollen, painful, and warm to touch. 7. Your physician has reviewed your pre-procedure medications. Please continue to take those medications as previously ordered. You will be given specific information/education regarding any changes to your medications before leaving. Stand Alone Forms: Anesthesia Discharge Inst., Colonoscopy Post Instructions, Mel Spaulding (DSU) Activity:: Activity as Tolerated Diet:: As Tolerated Discharge Orders Discharge Orders: Discharge Order (Routine); Ordered 05/02/24 Ordered By: Brian Zavala DS: Diagnosis Discharge Diagnosis (1) Encounter for screening colonoscopy: Status: Acute Asessment and Plan: Follow-up on polypectomy results
--- NOTE | 2024-05-02 11:35 | W.COLOREPORT ---
Date of service: 05/03/24 Time of Service: 11:07 Colonoscopy Report Date of procedure: 05/03/24 Pre-op diagnosis general: screening colonoscopy Post-op diagnosis procedure note: other (Colon polyps) Procedure: Colonoscopy with polypectomy Surgeon: Brian Zavala Anesthesia Type: General:No Airway Estimated blood loss (mL): 10 Pathology: other (3 polyps from 55 cm from the anus. Each less than 0.25 cm. All sent with cold forceps. Polyps at 40 cm, 30 cm at the anastomosis) Complications: None Disposition: same day Indications: Jamir is a 68 year old woman with a history of colon cancer who needs her next follow up screening colonoscopy Prep: Miralax/Dulcolax Procedure Start Time: 10:36 Procedure End Time: 10:59 Retraction Time: 14 Findings: 3 polyps from 55 cm from the anus. Each less than 0.25 cm. All sent with cold forceps. Polyps at 40 cm, 30 cm at the anastomosis Procedure Description: After initiation of anesthesia, and with bony in left lateral decubitus position, I began by performing an external anorectal exam.? Perineum and skin were normal, as was the anal verge.? There was no evidence of external hemorrhoids.? Next, I performed a digital rectal exam.? I did not appreciate any abnormal findings.? Next, I advanced a colonoscope into the rectal vault.? I performed retroflexion.? This appeared normal using insufflation, I then advanced the colonoscope beyond the rectal folds and into the sigmoid colon before advancing towards the cecum.? The anastomosis was easily traversed, measuring approximately 30 cm from the anus. It is widely patent, with no evidence of any strictures. There is a polyp along the periphery of the anastomosis. I suspect this is the same area that it was observed in previously. I was uncertain if it had complete resection at that point, and I suspect this may be a recurrence or recrudescence of that polyp. This was excised today with snare polypectomy. Reassuringly, it appears to be complete.? I continued advancing to the right side. The scope was noted to be in the cecum by identification of the ileocecal valve and appendiceal orifice.? I then began withdrawing the colonoscope using repeated irrigation as necessary for full evaluation of the colonic mucosa. Around 55 cm from the anus is a small cluster of polyps. Each is less than 0.25 cm. They are all flat. These were all removed with cold forceps. There is minimal bleeding at the sites. I found 1 another polyp just distal to the anastomosis. This was quite small and flat. Clinically, it appears more consistent with a hyperplastic polyp, but given Jamir's history, I did remove it with cold forceps polypectomy today. Once the scope was withdrawn to the level of the rectum, great care was taken to examine portions of the rectal folds.? Finally, the scope was withdrawn and the patient was brought to the same-day surgery recovery unit as the anesthetic wore off. ?The findings and instructions were shared with the patient prior to discharge. [place] Bowel Prep [place] Bowel Prep Right Colon: 3 Left Colon: 3 Transverse Colon: 3 Total Score: 9
[2024-05-03 08:24] VITALS: BP 118/82; PULSE 100; RESP 20; TEMP 36.4; O2SAT 97
[2024-05-03] MEDS: Lactated Ringers 1,000 ML 80 ML IV (08:36)
--- NOTE | 2024-05-03 09:16 | W.ANESPRE ---
General Info Date of Service Date Performed: 05/03/24 Height: 5 ft 4 in Weight: 84.3 kg Body Mass Index (BMI): 31.8 Surgical Procedure: Operation Date: 05/03/24 10:05 Proposed Procedure Side Surgeon dian Zavala MD Meds Allergies and Home Medications Allergies Allergy/AdvReac Type Severity Reaction Status Date / Time trastuzumab (From Herceptin) Allergy Severe Anaphylaxis Verified 05/03/24 08:29 Penicillins Allergy Intermediate Hives Verified 05/03/24 08:29 venom-honey bee Allergy Intermediate Large Verified 05/03/24 08:29 local reaction meperidine AdvReac Mild syncope Verified 05/03/24 08:29 meperidine HCl (From Demerol) AdvReac passed out Verified 05/03/24 08:29 HORNETS Allergy Unknown Swelling/Ed Uncoded 05/03/24 08:29 dyana Home Medication ?Medication ?Instructions ?Recorded cholecalciferol (vitamin D3) 25 25 mcg PO DAILY 05/30/22 mcg (1,000 unit) capsule Current Visit Medications: Current Medications Generic Name Dose Route Start Last Admin Trade Name Freq PRN Reason Stop Dose Admin Ringer's Solution 1,000 mls @ 80 mls/hr 05/03/24 06:00 05/03/24 08:36 IV 05/03/24 23:59 80 mls/hr INFUSION DARON Administration IV Miscellaneous Supplies 1 each 05/03/24 06:00 Iv Access IV 05/03/24 23:59 DIRECTED DARON Ondansetron HCl 4 mg 05/02/24 11:36 Ondansetron 4 Mg/2 Ml Vial IVP 06/01/24 11:35 Q4H PRN PRN Nausea / Vomiting Sodium Chloride 0 ml 05/03/24 06:00 Normal Saline Flush 10 Ml Syr IV 05/03/24 23:59 PRN PRN Sodium Chloride 0 ml 05/03/24 06:00 Normal Saline 10 Ml Vial IJ 05/03/24 23:59 DIRECTED PRN Sterile Water 0 ml 05/03/24 06:00 Water,Injection,Sterile 10 Ml Vial IJ 05/03/24 23:59 DIRECTED PRN PFSH Active Problems Active Problems: Problem Status Onset Code Encounter for screening colonoscopy Acute Z12.11 Advanced care planning/counseling discussion Acute Z71.89 PONV (postoperative nausea and vomiting) Acute R11.2, Z98.890 History of breast cancer in female Acute Z85.3 Mass of lingula of lung Acute R91.8 History of colon cancer, stage III Acute Z85.038 Palliative care patient Acute Z51.5 Colon cancer Chronic C18.9 Smoker Chronic F17.200 Decreased vision Acute H54.7 Medicare welcome exam Acute Z00.00 Nicotine dependence Acute F17.200 Thoracic spine dysfunction Acute M53.84 Medical History Medical History Abnormal chest xray (07/11/17) Acute streptococcal pharyngitis Acute tonsillitis Cervical arthritis with myelopathy (07/23/17) 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 denies Malignant neoplasm of female breast s/p lumpectomy, chemo; neuropathy issues hands, feet Other abnormal Papanicolaou smear of cervix and cervical HPV (02/12/13) certified ltr sent to request another appt for pap Other elevated white blood cell count (04/07/12) Peritonsillar cellulitis Posterior tibial tendon dysfunction (PTTD) of left lower extremity (02/07/16) Thoracic back pain Vitamin D deficiency disease (02/08/14) Surgical History Surgical History Breast, Lumpectomy (~2010) Colonoscopy - MAC (10/2023) History of surgery on arm Right arm, 1994 S/P partial colectomy (~05/02/23) Tobacco Smoking/Tobacco Use Status: Current every day Tobacco Type: cigarettes Passive smoking exposure: Yes Second hand exposure: Yes Alcohol Alcohol Intake: current Alcohol intake frequency: a few times a week Alcohol type: beer Substance Use Substance use: Never Substance use type: does not use Counseling provided: none Vital Signs and Lab Results Vital Signs Most Recent Vital Signs in EMR: Most Recent Vital Signs Temp Pulse Resp BP Pulse Ox 36.4 C L 100 H 20 118/82 97 05/03/24 08:24 05/03/24 08:24 05/03/24 08:24 05/03/24 08:24 05/03/24 08:24 Lab Results Blood Type / Crossmatch: No Data to Display Complete Blood Count: No Data to Display Complete Metabolic Panel: No Data to Display Liver Function Panel: No Data to Display Coagulation Panel: No Data to Display Cardiac Panel: No Data to Display Arterial Blood Gas: No Data to Display Venous Blood Gas: No Data to Display Pancreas Panel: No Data to Display Thyroid Panel: No Data to Display Infectious Disease: No Data to Display Blood Cultures: No Data to Display Toxicology Panel: No Data to Display Imaging and Studies Imaging and Studies Study information below may be from another EMR and interpreted by another provider. Please see original notes in EMR for more complete details. Stress Test Summary: 06/18: no echo evidence for stress induced ischemia. Echocardiogram Summary: 2012: lvef 60%, trace TR. Anesthesia Assessment and Plan Anesthesia History Personal History: No History of Anesthesia Complications Family History: No Family History of Anesthesia Complications Exercise Tolerance Exercise Tolerance: Metabolic Equivalents>4 Cardiac & Pulmonary Exam Cardiac Exam: Normal S1/S2 Heart Sounds Pulmonary Exam: Clear Bilateral Breath Sounds Implantable Cardiac Device Does patient have a Pacemaker or an ICD?: No Airway Exam Known Difficult Airway: No Mallampati Class: 3 Mouth Opening: Normal (> 3cm) Thyromental Distance: Less than 3 cm Neck Range of Motion: Limited ROM Neck Circumference: Thick Teeth Condition: Normal Dentition ASA Classification ASA Score: ASA 3 Emergency Case?: No NPO Status NPO Status: NPO Clears >2 hours, Solids >8 hours Anesthesia Plan Resuscitation Status: Full Code Anesthesia Technique: General Anesthesia Airway Planned: Natural Airway Monitors Used: Standard Monitors
[2024-05-03 09:31] VITALS: BMI 31.8
--- NOTE | 2024-05-03 10:48 | BOWEL_PTH ---
PATIENT: Marti Daniel LOC: [facility] U#:[id number] AGE/SX: 68/F ROOM: RE05/03/[address]: Brian Zavala MD : [id number] BED: DIS: 05/03/2024 SPEC #: [id number] RECD: 05/03/24 13:00 STATUS: CASEY RE #: [id number] ANNA MARIE: 05/03/24 10:[address]: Brian Zavala DEPT: Surgical Specimen RECD BY: Armida Bradford ENTERED: 05/03/24 13:01 SP TYPE: Bowel OTHR DR: Betsy Hurtado MD, DC Tissues: 1 - BIOPSY BOWEL 2 - BIOPSY BOWEL 3 - BIOPSY BOWEL Procedures: GROSS AND MICRO LEVEL 4 Comments: [id number]
[2024-05-03 11:10] VITALS: BP 84/64; PULSE 97; RESP 22; TEMP 36.1; O2SAT 99
[2024-05-03 11:35] VITALS: BP 94/58; PULSE 100; RESP 18; TEMP 36.3; O2SAT 99
--- NOTE | 2024-05-03 14:41 | W.ANESPOSTOP ---
Postoperative Evaluation Date, Time and Location Date Performed: 05/03/24 Time Performed: 11:20 Patient Location: Day Surgery Unit Vital Signs Most Recent Imported Vital Signs: Most Recent Vital Signs Temp Pulse Resp BP Pulse Ox 36.3 C L 100 H 18 94/58 L 99 05/03/24 11:35 05/03/24 11:35 05/03/24 11:35 05/03/24 11:35 05/03/24 11:35 Pain Score Most Recent Pain Score: Most Recent Pain Score Pain Level 0 05/03/24 11:10 Assessment Mental Status: Awake (Alert & Oriented to Patient Baseline) Airway and Respiratory Function: Patent airway with normal (patient baseline) respiratory exam (Patient reports breathing back to baseline) Cardiovascular Function: Hemodynamically Stable Hydration Status: Adequately Hydrated Nausea & Vomiting: No Nausea or Vomiting Pain: Pt. Denies Any Pain Peripheral Nerve Block: Patient did not receive a nerve block
== END 2024-05-03 12:02 | disposition home or self-care (01) ==
LOC: SUR 08:07
PROVIDERS: PCP Family Medicine; Visit Provider Surgery
PROC: 0DJD8ZZ Inspection of Lower Intestinal Tract, Via Natural or Artificial Opening Endoscopic (ICD-10-PCS; CPT 45378; principal; 2024-05-03 10:00)
DX: Z12.11 Encounter for screening for malignant neoplasm of colon (principal); D12.5 Benign neoplasm of sigmoid colon
CPT/HCPCS: 45385; 45380; 88305; J2371; J2704

== ENCOUNTER 2024-06-07 01:20 | Outpatient (CLI) | payer MEDICARE, MEDICAID, SELFPAY ==
[2024-06-07 07:45] LABS: Abs Immature Grans 0.02 10^3/uL (0.0-0.06); Absolute Basophil Count 0.08 10^3/uL (0.0-0.2); Absolute Eosinophil Count 0.26 10^3/uL (0.0-0.7); Absolute Lymphocyte Count 3.11 10^3/uL (1.2-3.4); Absolute Monocyte Count 0.66 10^3/uL (0.1-0.8); Absolute Neutrophil Count 4.47 10^3/uL (1.2-6.7); Basophils % 0.9 %; HCT 46.2 % (36.0-46.0); HGB 15.6 g/dL (11.2-15.7); Immature Grans % 0.2 %; Lymphocytes % 36.2 %; MCH 30.8 pg (27.0-33.0); MCHC 33.8 % (32.0-36.0); MCV 91 fL (80-95); MPV 8.9 fL (8.0-11.0); Monocytes % 7.7 %; Platelet Count 278 10^3/uL (130-400); RBC 5.06 10^6/uL (3.93-5.22); RDW 13.5 % (11.7-14.6); RDW-SD 45.4 fL
[2024-06-07] MEDS: Barium Sulfate 2% W/V-Creamy Vanilla Smoothie 450 ML BTL PO ×2 (07:46→07:47)
[2024-06-07 08:01] LABS: ALT 33 U/L (14-59); AST 20 U/L (15-37); Albumin 3.3 g/dL (3.4-5.0); Alkaline Phosphatase 91 U/L (46-116); Anion Gap 10.5 mmol/L (3-11); BUN 9 mg/dL (7-18); Bilirubin, Total 0.32 mg/dL (0.2-1.0); CO2 28.5 mmol/L (21.0-32.0); CREATININE 1.1 mg/dL (0.55-1.02); Calcium 9.2 mg/dL (8.5-10.1); Chloride 105 mmol/L (98-107); Estimated GFR 55.07 (mL/min/1.73m2); Glucose 144 mg/dL (74-106); Potassium 4.3 mmol/L (3.5-5.1); Sodium 144 mmol/L (136-145); Total Protein 7.4 g/dL (6.4-8.2)
--- NOTE | 2024-06-07 10:22 | DI.CT_ITS ---
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 Computer aided detection (CAD) was utilized. CONTRAST MATERIAL: Intravenous: Omnipaque 350 contrast volume:100 mL Oral: Yes COMPARISON: CT CHEST WITH CONTRAST from 07/22/[address] CHEST LUNG CANCER SCREEN from 09/26/[address] ABDOMEN PELVIS W from 04/01/[address] CHEST/ABD/PEL W from 07/03/[address] CHEST/ABD/PEL W from 11/14/2023 FINDINGS: CHEST: Tracheobronchial tree: Patent where visualized. No evidence of bronchiectasis. Pulmonary parenchyma: No consolidation or dominant measurable mass. There are no new pulmonary nodule s. The right lower lobe pulmonary nodule (series 10, image 78), the left lingular nodule (series 10, image 71), the left lower lobe pulmonary nodule (series 10, image 87), and the peripheral right lowe r lobe pulmonary nodule (series 10, image 72) are all stable. These have been stable since 2017. Visualized thyroid gland: Unremarkable. Mediastinum and Muriel: No dominant adenopathy or fluid collection. The esophagus is unremarkable. Pleura: No effusion or pneumothorax. Heart: The heart is not dilated. Coronary artery calcification is present. No pericardial effusion. Pulmonary arteries: No pulmonary emboli are identified. Aorta: Thoracic aorta non-dilated. No evidence of dissection. Atherosclerotic calcification is prese nt. Lymph nodes: Within normal limits. Soft tissues: Unremarkable. Bones:Within normal limits for the patient's age. ABDOMEN: Liver: Normal density. No measurable mass. Portal, Superior Mesenteric, and Splenic Veins: Unremarkable. Gallbladder and Biliary Tract: No radiodense calculus or dilation. Pancreas: Normal density, no abnormal calcifications or inflammatory process. Spleen: Normal. There are calcified granuloma in the spleen. Adrenals: No masses seen. Kidneys: Normal size, contour and axis. There is a nonobstructing 3 mm stone in the lower pole of the left kidney. No masses seen. Abdominal Aorta: Abdominal portion non-dilated. Atherosclerotic calcification is present. Bowel: No obstruction or bowel wall thickening. Findings of a partial colectomy. No evidence of appe ndicitis. Peritoneal Cavity: No ascites, collection or mesenteric inflammatory response. No free air. Lymph Nodes: Within normal limits. Bones: Within normal limits for the patient's age. Soft Tissues: Unremarkable. PELVIS: Bladder: Symmetric distention, no gross wall thickening. Reproductive Organs: Unremarkable as visualized. Lymph Nodes: Within normal limits. Bones: Within normal limits. IMPRESSION: 1. No evidence of thoracic metastatic disease. 2. Status post partial colectomy. No evidence of abdominal or pelvic metastatic disease. RADIATION DOSE DELIVERED: 417.01mGy.cm Total DLP DATA REPOSITORY: All CT scans at this facility are submitted to the National Radiology Data Registry (NRDR) Dose Index Registry (DIR) with the [employer] (ACR). RADIATION OPTIMIZATION: All CT scans at this facility use at least one of these dose optimization te chniques: automated exposure control; mA and/or kV adjustment per patient size (includes targeted exa ms where dose is matched to clinical indication); or iterative reconstruction.
[2024-06-07] MEDS: Omnipaque 350 MG/ML 500 ML BTL-Imaging package 100 ML IJ (10:23)
[2024-06-07] MEDS: Normal Saline - Diluent 50 ML VIAL IJ (10:23)
[2024-06-07 19:00] LABS: CEA 3.3 ng/mL (See Note)
== END 2024-06-07 01:40 ==
LOC: DI 01:20
PROVIDERS: Internal Medicine Hematology & Oncology; PCP Family Medicine; Visit Provider Nurse Practitioner Family
DX: C18.6 Malignant neoplasm of descending colon (principal)
CPT/HCPCS: 74177; 80053; 71260; 82378; 85025

== ENCOUNTER 2024-06-24 10:35 | Outpatient (CLI) | payer MEDICARE, MEDICAID, SELFPAY ==
[2024-06-24 12:15] LABS: Abs Immature Grans 0.04 10^3/uL (0.0-0.06); Absolute Basophil Count 0.09 10^3/uL (0.0-0.2); Absolute Lymphocyte Count 2.75 10^3/uL (1.2-3.4); Basophils % 0.8 %; Eosinophils % 1.7 %; HCT 46.7 % (36.0-46.0); HGB 15.4 g/dL (11.2-15.7); Immature Grans % 0.4 %; Lymphocytes % 25.3 %; MCH 30.7 pg (27.0-33.0); MCV 93 fL (80-95); MPV 8.9 fL (8.0-11.0); Monocytes % 7.4 %; Neutrophils % 64.4 %; Platelet Count 281 10^3/uL (130-400); RBC 5.02 10^6/uL (3.93-5.22); RDW 13.7 % (11.7-14.6); WBC 10.87 10^3/uL (4.4-10.8)
[2024-06-24 12:18] LABS: Absolute Eosinophil Count 0.18 10^3/uL (0.0-0.7)
[2024-06-24 12:30] LABS: ALT 25 U/L (14-59); AST 19 U/L (15-37); Albumin 3.5 g/dL (3.4-5.0); Alkaline Phosphatase 84 U/L (46-116); Anion Gap 6.9 mmol/L (3-11); BUN 13 mg/dL (7-18); Bilirubin, Total 0.42 mg/dL (0.2-1.0); CO2 28.1 mmol/L (21.0-32.0); CREATININE 1.3 mg/dL (0.55-1.02); Calcium 9.4 mg/dL (8.5-10.1); Chloride 106 mmol/L (98-107); Estimated GFR 45.07 (mL/min/1.73m2); Glucose 131 mg/dL (74-106); Potassium 4.1 mmol/L (3.5-5.1); Sodium 141 mmol/L (136-145); Total Protein 7.6 g/dL (6.4-8.2)
[2024-06-25 08:25] LABS: CEA 2.5 ng/mL (See Note)
== END 2024-06-24 10:36 | disposition home or self-care (01) ==
PROVIDERS: PCP Family Medicine; Visit Provider Nurse Practitioner Family
DX: C18.6 Malignant neoplasm of descending colon (principal)
CPT/HCPCS: 36415; 80053; 82378; 85025

== ENCOUNTER 2024-07-26 11:20 | Outpatient (CLI) | payer MEDICARE, MEDICAID, SELFPAY ==
[2024-07-26 12:44] LABS: Hemoglobin A1C 6.4 % (<5.7)
[2024-07-26 13:01] LABS: Vitamin B12 228 pg/mL (193-986); Vitamin D 25 Total 21.4 ng/mL (30-100)
== END 2024-07-26 11:21 | disposition home or self-care (01) ==
LOC: LOS 11:21
PROVIDERS: PCP Family Medicine; Referring Provider Family Medicine; Visit Provider Family Medicine
DX: E53.8 Deficiency of other specified B group vitamins (principal); E11.9 Type 2 diabetes mellitus without complications; E55.9 Vitamin D deficiency, unspecified
CPT/HCPCS: 36415; 82306; 82607; 83036

== ENCOUNTER 2024-08-05 01:41 | Outpatient (CLI) | payer MEDICARE, MEDICAID, SELFPAY ==
--- NOTE | 2024-08-05 06:30 | DI.DEXA_ITS ---
Exam(s) XR DEXA BONE DENSITY W/WO BURT EXAM: XR DEXA BONE DENSITY W/WO BURT CLINICAL HISTORY: post menopausal STATUS, SCREENING FOR OSTEOPOROSIS, Z78.0 TECHNIQUE: Vivaty Horizon C densitometer analysis of left hip, lumbar spine and left forearm. Lat eral survey image of the thoracic and lumbar spine. COMPARISON: 2012 FINDINGS: Lateral view of the thoracic and lumbar spine shows no evidence of compression fractures. Bone mineral density measurements of the lumbar spine correspond to a total T-score of -0.7, in the normal range. This is not significantly changed from 2012. Bone mineral density measurements of the left hip correspond to a total T-score of 1.1, in the nasima l range. This represents a 6.0 percent increase from 2012. The femoral neck T-score is -0.9 in the normal range. Theleft forearm bone mineral density measurements correspond to a T-score of the distal 3rd of 0.3, in the normal range. This is not significantly changed from the prior exam. IMPRESSION: Normal bone mineral density.
== END 2024-08-05 02:01 ==
LOC: DI 01:41
PROVIDERS: PCP Family Medicine; Visit Provider Family Medicine
DX: Z78.0 Asymptomatic menopausal state (principal); Z13.820 Encounter for screening for osteoporosis
CPT/HCPCS: 77080

== ENCOUNTER 2024-08-27 00:49 | Outpatient (CLI) | payer MEDICARE, MEDICAID, SELFPAY ==
--- NOTE | 2024-08-27 11:20 | DI.MAMMO_ITS ---
Exam(s) MG MAMMO SCREENING 60 MIN DUR EXAM: MG MAMMO SCREENING 60 MIN DUR CLINICAL HISTORY: breast cancer screening,h/o breast ca,z85.3. TECHNIQUE: Bilateral full field digital CC and MLO mammographic images were obtained with 3D tomosyn thesis and utilizing computer aided detection (CAD). COMPARISON: Prior mammograms were reviewed. FINDINGS: There has been no significant change in the appearance and distribution of the fibroglandular tissue. Left breast lumpectomy site remains stable in appearance. No new left breast findings. In opposite-right breast there are no new findings in the immediate vicinity of a biopsy marker clip located towards the upper outer quadrant. There is no significant architectural distortion nor skin thickening-retraction. IMPRESSION: Stable benign-appearing findings. No radiographic evidence of malignancy. BI-RADS Category 2 - Benign Findings Breast Density - Category B - Scattered areas of fibroglandular density Breast density Category C or D implies that the patient has dense breast tissue. Dense breast tissue can make it harder to find cancer on a mammogram. Dense breast tissue is also associated with an incr eased risk of breast cancer. This information about the result of the mammogram report was provided to the patient to raise their awareness. Use this report when you speak with the patient about their risks for breast cancer, which includes their family history. At that time, you may recommend additional screening tests (Ultrasoun d or MRI) as these tests may add significant information. A negative radiographic report should not delay biopsy if a dominant or clinically suspicious mass is present. Up to ten percent of cancers are not identified on mammography. A negative report may reinforce clinical impression. Adenosis and dense breasts may obscure an underlying neoplasm. False positive reports average 6 to 10%. Patient will receive a letter notifying them of these results.
== END 2024-08-27 01:09 ==
LOC: DI 00:49
PROVIDERS: PCP Family Medicine; Visit Provider Family Medicine
DX: R92.323 Mammographic fibroglandular density, bilateral breasts (principal); Z12.31 Encounter for screening mammogram for malignant neoplasm of breast; D24.2 Benign neoplasm of left breast; Z85.3 Personal history of malignant neoplasm of breast
CPT/HCPCS: 77063; 77067

== ENCOUNTER 2024-12-20 03:50 | Outpatient (CLI) | payer MEDICARE, MEDICAID, SELFPAY ==
[2024-12-20 11:12] LABS: Abs Immature Grans 0.03 10^3/uL (0.0-0.06); Absolute Basophil Count 0.07 10^3/uL (0.0-0.2); Absolute Eosinophil Count 0.26 10^3/uL (0.0-0.7); Absolute Monocyte Count 0.76 10^3/uL (0.1-0.8); Absolute Neutrophil Count 4.95 10^3/uL (1.2-6.7); Basophils % 0.8 %; HCT 44.8 % (36.0-46.0); HGB 15.1 g/dL (11.2-15.7); Immature Grans % 0.3 %; Lymphocytes % 30.8 %; MCH 31.3 pg (27.0-33.0); MCHC 33.7 % (32.0-36.0); MCV 93 fL (80-95); MPV 8.8 fL (8.0-11.0); Monocytes % 8.7 %; Neutrophils % 56.4 %; Platelet Count 300 10^3/uL (130-400); RBC 4.82 10^6/uL (3.93-5.22); RDW 13.1 % (11.7-14.6); RDW-SD 44.9 fL; WBC 8.77 10^3/uL (4.4-10.8)
[2024-12-20 12:33] LABS: ALT 24 U/L (14-59); AST 22 U/L (15-37); Albumin 3.3 g/dL (3.4-5.0); Alkaline Phosphatase 88 U/L (46-116); Anion Gap 6.8 mmol/L (3-11); BUN 13 mg/dL (7-18); Bilirubin, Total 0.3 mg/dL (0.2-1.0); CO2 27.2 mmol/L (21.0-32.0); Chloride 103 mmol/L (98-107); Estimated GFR 61.36 (mL/min/1.73m2); Glucose 146 mg/dL (74-106); Potassium 3.9 mmol/L (3.5-5.1); Sodium 137 mmol/L (136-145); Total Protein 7.3 g/dL (6.4-8.2)
[2024-12-20 18:29] LABS: CEA 2.4 ng/mL (See Note)
== END 2024-12-20 03:51 | disposition home or self-care (01) ==
PROVIDERS: PCP Family Medicine; Visit Provider Internal Medicine Hematology & Oncology
DX: C18.6 Malignant neoplasm of descending colon (principal)
CPT/HCPCS: 36415; 80053; 82378; 85025

== ENCOUNTER → 2025-03-24 10:45 | Outpatient (BNVA) | payer MEDICARE, MEDICAID, SELFPAY | PROVIDERS: PCP Family Medicine; Referring Provider Family Medicine; Visit Provider Physical Therapy Assistant | DX: Z12.11 Encounter for screening for malignant neoplasm of colon (principal); Z86.0101 Personal history of adenomatous and serrated colon polyps; Z85.00 Personal history of malignant neoplasm of unspecified digestive organ | CPT/HCPCS: S0285 ==

== ENCOUNTER 2025-04-15 07:34 | Day surgery (SDC) | payer MEDICARE, MEDICAID, SELFPAY ==
--- NOTE | 2025-04-14 16:09 | W.PM.DSUDISC ---
Date of service: 04/14/25 Discharge Plan Disposition Patient Disposition: Home Condition: Good Discharge Details Reason For Visit: Screening colonoscopy Attending Provider: Brian Zavala Primary Care Provider: Betsy Hurtado Home Meds and New Rx's Prescriptions: Continued cholecalciferol (vitamin D3) 25 mcg (1,000 unit) capsule 25 mcg PO DAILY Discontinued bisacodyl [Dulcolax (bisacodyl)] 5 mg tablet,delayed release (DR/EC) 5 mg PO ONCE Qty: 4 0RF Rx Instructions: Take per colonoscopy instructions provided by ordering providers office polyethylene glycol 3350 17 gram/dose powder 17 g PO ONCE Qty: 238 0RF Rx Instructions: Take per colonoscopy instructions provided by ordering providers office Discharge Instructions Additional Instructions: Emma, as always, it was great seeing you. Things went very smoothly for your colonoscopy. I did find, and removed several polyps today. Similar to the previous times, these were all relatively small in size. And as you have experienced in the past, these will be sent to the pathologist for them to review. Once I have that information, the office will be in touch. I hope you feel well afterwards, and as always if you need anything, please feel free to call at any time. 1. If tolerated, consume a soft, low fiber diet for 1-2 days. [address] Do not drive, drink alcohol, operate machinery, make critical decisions, or do activities that require coordination or balance for 24 hours. 3. Because air was put into your colon during the procedure, expelling air from your rectum (passing gas or farting) is normal. 4. You may not have a bowel movement for 1-3 days because of the colonoscopy prep. This is normal. 5. Go directly to the emergency room if you notice any of the following: Develop chills (warm to touch), or if you have a thermometer and your temperature is above 101 Difficulty breathing or difficultly swallowing Persistent vomiting Severe abdominal pain, other than gas cramps Severe chest pain Black, tarry stools Any bleeding ? exceeding one tablespoon 6. Call your physician if the site where your intravenous was started becomes red, swollen, painful, and warm to touch. 7. Your physician has reviewed your pre-procedure medications. Please continue to take those medications as previously ordered. You will be given specific information/education regarding any changes to your medications before leaving. Activity:: Activity as Tolerated Diet:: As Tolerated Discharge Orders Discharge Orders: Discharge Order (Routine); Ordered 04/14/25 Ordered By: Brian Zavala DS: Diagnosis Discharge Diagnosis (1) Encounter for screening colonoscopy: Status: Acute Asessment and Plan: Follow-up on polypectomy results
--- NOTE | 2025-04-14 16:11 | W.COLOREPORT ---
Date of service: 04/15/25 Time of Service: 09:49 Colonoscopy Report Date of procedure: 04/15/25 Pre-op diagnosis general: Screening colonoscopy Post-op diagnosis procedure note: other (Follow-up on polypectomy results) Procedure: Colonoscopy with polypectomy Surgeon: Brian Zavala Anesthesia Type: General:No Airway Estimated blood loss (mL): 10 Pathology: other (0.25 cm flat rectal polyp, 0.25 cm flat cecal polyp, 0.5 cm pedunculated ascending colon polyp, 0.5 cm sessile polyp at 55 cm, 0.5 cm pedunculated polyp at 18 cm) Complications: None Disposition: same day Indications: Marti is a 69-year-old woman with a history of colon cancer is undergoing her next screening colonoscopy Prep: Miralax/Dulcolax Procedure Start Time: 09:05 Procedure End Time: 09:34 Retraction Time: 20 Findings: 0.25 cm flat rectal polyp, 0.25 cm flat cecal polyp, 0.5 cm pedunculated ascending colon polyp, 0.5 cm sessile polyp at 55 cm, 0.5 cm pedunculated polyp at 18 cm Procedure Description: After the induction of anesthesia, and with the patient in left lateral decubitus position, I began by performing an external anorectal exam.? Perineum and skin were normal, as was the anal verge.? There was no evidence of external hemorrhoids.? Next, I performed a digital rectal exam.? I did appreciate any abnormal findings.? Next, I advanced a colonoscope into the rectal vault.? I performed retroflexion.? This was normal.? The lower portion of the rectal vault was a 0.5 cm flat polyp. This was removed with cold forceps without any issues. Using irrigation, I then advanced the colonoscope beyond the rectal folds and into the sigmoid colon before advancing towards the cecum.? The scope was noted to be in the cecum by identification of the ileocecal valve and appendiceal orifice.? Just a few millimeters away from the appendiceal orifice was a 0.25 cm flat polyp. This was removed with cold forceps. I then began withdrawing the colonoscope using repeated irrigation as necessary for full evaluation of the colonic mucosa. ?Just distal to the ileocecal valve, is a 0.5 cm slightly pedunculated polyp. This was removed with snare polypectomy. There was no significant bleeding. Specimen was retrieved. Around 55 cm from the anal verge is a small sessile area of polypoid tissue. Narrowband imaging was used to assist with the analysis here. This did appear consistent with an adenoma, and in piecemeal, this was excised with cold snare polypectomy. The anastomosis is encountered around 40 cm from the anal verge. It is widely patent. There is no pathology here. Once the scope was withdrawn to the level of the rectum, great care was taken to examine portions of the rectal folds. An 18 cm from the anal verge is a 0.5 cm pedunculated polyp. This is removed with cold snare polypectomy without any difficulty.? Finally, the scope was withdrawn and the patient was brought to the same-day surgery recovery unit as the anesthetic wore off. ?The findings and instructions were shared with the patient prior to discharge. [place] Bowel Prep [place] Bowel Prep Right Colon: 3 Left Colon: 3 Transverse Colon: 3 Total Score: 9
[2025-04-15 07:37] VITALS: BP 119/72; PULSE 107; RESP 22; TEMP 36.4; O2SAT 96
[2025-04-15] MEDS: Lactated Ringers 1,000 ML 80 ML IV (07:57)
--- NOTE | 2025-04-15 08:41 | W.ANESPRE ---
General Info Date of Service Date Performed: 04/15/25 Height: 5 ft 4 in Weight: 83.6 kg Body Mass Index (BMI): 31.6 Surgical Procedure: Operation Date: 04/15/25 09:20 Proposed Procedure Side Surgeon dian Zavala MD Meds Allergies and Home Medications Allergies Allergy/AdvReac Type Severity Reaction Status Date / Time trastuzumab (From Herceptin) Allergy Severe Anaphylaxis Verified 04/15/25 07:47 Penicillins Allergy Intermediate Hives Verified 04/15/25 07:47 venom-honey bee Allergy Intermediate Large Verified 04/15/25 07:47 local reaction meperidine AdvReac Mild syncope Verified 04/15/25 07:47 meperidine HCl (From Demerol) AdvReac passed out Verified 04/15/25 07:47 HORNETS Allergy Unknown Swelling/Ed Uncoded 04/15/25 07:47 dyana Home Medication ?Medication ?Instructions ?Recorded cholecalciferol (vitamin D3) 25 25 mcg PO DAILY 05/30/22 mcg (1,000 unit) capsule Current Visit Medications: Current Medications Generic Name Dose Route Start Last Admin Trade Name Freq PRN Reason Stop Dose Admin Ringer's Solution 1,000 mls @ 80 mls/hr 04/15/25 06:00 04/15/25 07:57 IV 04/15/25 23:59 80 mls/hr INFUSION DARON Administration IV Miscellaneous Supplies 1 each 04/15/25 06:00 Iv Access IV 04/15/25 23:59 DIRECTED DARON Ondansetron HCl 4 mg 04/14/25 16:12 Ondansetron 4 Mg/2 Ml Vial IVP 05/14/25 16:11 Q4H PRN PRN Nausea / Vomiting Sodium Chloride 0 ml 04/15/25 06:00 Normal Saline Flush 10 Ml Syr IV 04/15/25 23:59 PRN PRN Sodium Chloride 0 ml 04/15/25 06:00 Normal Saline 10 Ml Vial IJ 04/15/25 23:59 DIRECTED PRN Sterile Water 0 ml 04/15/25 06:00 Water,Injection,Sterile 10 Ml Vial IJ 04/15/25 23:59 DIRECTED PRN PFSH Active Problems Active Problems: Problem Status Onset Code B12 deficiency Acute E53.8 Encounter for screening colonoscopy Acute Z12.11 Advanced care planning/counseling discussion Acute Z71.89 PONV (postoperative nausea and vomiting) Acute R11.2, Z98.890 History of breast cancer in female Acute Z85.3 Mass of lingula of lung Acute R91.8 History of colon cancer, stage III Acute Z85.038 Palliative care patient Acute Z51.5 Colon cancer Chronic C18.9 Smoker Chronic F17.200 Decreased vision Acute H54.7 Medicare welcome exam Acute Z00.00 Nicotine dependence Acute F17.200 Thoracic spine dysfunction Acute M53.84 Medical History Medical History Abnormal chest xray (07/11/17) Acute streptococcal pharyngitis Acute tonsillitis Cervical arthritis with myelopathy (07/23/17) 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 denies Malignant neoplasm of female breast s/p lumpectomy, chemo; neuropathy issues hands, feet Other abnormal Papanicolaou smear of cervix and cervical HPV (02/12/13) certified ltr sent to request another appt for pap Other elevated white blood cell count (04/07/12) Peritonsillar cellulitis Pneumonia Posterior tibial tendon dysfunction (PTTD) of left lower extremity (02/07/16) Thoracic back pain Vitamin D deficiency disease (02/08/14) Surgical History Surgical History Breast, Lumpectomy (~2010) Colonoscopy - MAC (04/2024) History of surgery on arm Right arm, 1995 S/P partial colectomy (~05/02/23) Tobacco Smoking/Tobacco Use Status: Current every day Tobacco Type: cigarettes Smoking cigarettes per day: 30 Passive smoking exposure: Yes Second hand exposure: Yes Alcohol Alcohol Intake: current Alcohol intake frequency: a few times a week Alcohol type: beer Substance Use Substance use: Never Substance use type: does not use Counseling provided: none Vital Signs and Lab Results Vital Signs Most Recent Vital Signs in EMR: Most Recent Vital Signs Temp Pulse Resp BP Pulse Ox 36.4 C L 107 H 22 119/72 96 04/15/25 07:37 04/15/25 07:37 04/15/25 07:37 04/15/25 07:37 04/15/25 07:37 Imaging and Studies Imaging and Studies Study information below may be from another EMR and interpreted by another provider. Please see original notes in EMR for more complete details. Stress Test Summary: 06/18: no echo evidence for stress induced ischemia. Echocardiogram Summary: 2012: lvef 60%, trace TR. Anesthesia Assessment and Plan Anesthesia History Personal History: No History of Anesthesia Complications Family History: No Family History of Anesthesia Complications Exercise Tolerance Exercise Tolerance: Metabolic Equivalents>4 Cardiac & Pulmonary Exam Cardiac Exam: Normal S1/S2 Heart Sounds Pulmonary Exam: Clear Bilateral Breath Sounds (Smokers cough) Implantable Cardiac Device Does patient have a Pacemaker or an ICD?: No Airway Exam Known Difficult Airway: No Mallampati Class: 3 Mouth Opening: Normal (> 3cm) Thyromental Distance: Less than 3 cm Neck Range of Motion: Limited ROM Neck Circumference: Thick Teeth Condition: Normal Dentition ASA Classification ASA Score: ASA 3 Emergency Case?: No NPO Status NPO Status: NPO Clears >2 hours, Solids >8 hours Anesthesia Plan Resuscitation Status: Full Code Anesthesia Technique: General Anesthesia Airway Planned: Natural Airway Monitors Used: Standard Monitors
[2025-04-15 08:50] VITALS: BMI 31.6
--- NOTE | 2025-04-15 09:08 | BOWEL_PTH ---
PATIENT: Marti Daniel LOC: [facility] U#:[id number] AGE/SX: 69/F ROOM: RE04/15/[address]: Brian Zavala MD : [id number] BED: DIS: 04/15/2025 SPEC #: [id number] RECD: 04/15/25 12:32 STATUS: [facility] #: [id number] ANNA MARIE: 04/15/25 09:[address]: Brian Zavala DEPT: Surgical Specimen RECD BY: Armida Bradford ENTERED: 04/15/25 12:35 SP TYPE: Bowel OTHR DR: Betsy Hurtado MD, DC Tissues: 1 - BIOPSY BOWEL 2 - BIOPSY BOWEL 3 - BIOPSY BOWEL 4 - BIOPSY BOWEL 5 - BIOPSY BOWEL Procedures: GROSS AND MICRO LEVEL 4 Comments: [id number]
[2025-04-15 09:50] VITALS: BP 148/58; PULSE 102; RESP 16; TEMP 36; O2SAT 97
[2025-04-15 10:25] VITALS: BP 108/70; PULSE 100; RESP 20; TEMP 36; O2SAT 98
--- NOTE | 2025-04-15 10:39 | W.ANESPOSTOP ---
Postoperative Evaluation Date, Time and Location Date Performed: 04/15/25 Time Performed: 10:39 Patient Location: Day Surgery Unit Vital Signs Most Recent Imported Vital Signs: Most Recent Vital Signs Temp Pulse Resp BP Pulse Ox 36 C L 100 H 20 108/70 98 04/15/25 10:25 04/15/25 10:25 04/15/25 10:04/15/25 10:04/15/25 10:25 Pain Score Most Recent Pain Score: Most Recent Pain Score Pain Level 0 04/15/25 10:25 Assessment Mental Status: Awake (Alert & Oriented to Patient Baseline) Airway and Respiratory Function: Patent airway with normal (patient baseline) respiratory exam Cardiovascular Function: Hemodynamically Stable Hydration Status: Adequately Hydrated Nausea & Vomiting: No Nausea or Vomiting Pain: Pt. Denies Any Pain Peripheral Nerve Block: Patient did not receive a nerve block
== END 2025-04-15 10:46 | disposition home or self-care (01) ==
LOC: SUR 07:34
PROVIDERS: PCP Family Medicine; Visit Provider Surgery
PROC: 0DJD8ZZ Inspection of Lower Intestinal Tract, Via Natural or Artificial Opening Endoscopic (ICD-10-PCS; CPT 45378; principal; 2025-04-15 09:15)
DX: Z12.11 Encounter for screening for malignant neoplasm of colon (principal); K62.1 Rectal polyp; D12.0 Benign neoplasm of cecum; D12.5 Benign neoplasm of sigmoid colon; D12.2 Benign neoplasm of ascending colon; Z85.038 Personal history of other malignant neoplasm of large intestine
CPT/HCPCS: 45385; 45380; 88305; J2003; J2371; J2704